=== PATIENT | female | born 1960 | race Caucasian/White ===

== ENCOUNTER 2019-10-20 13:29 | Outpatient (CLI) | payer MEDICAID, SELFPAY ==
[2019-10-20 14:02] LABS: INR 1.93 (0.8-1.2)
== END 2019-10-20 13:30 | disposition home or self-care (01) ==
LOC: ONCMED 13:34
PROVIDERS: Family Provider Nurse Practitioner; PCP Nurse Practitioner Family; Visit Provider Nurse Practitioner
DX: Z51.81 Encounter for therapeutic drug level monitoring (principal); Z79.01 Long term (current) use of anticoagulants; Z86.718 Personal history of other venous thrombosis and embolism
CPT/HCPCS: 85610

== ENCOUNTER 2019-11-07 08:54 | Outpatient (CLI) | payer MEDICAID, SELFPAY ==
[2019-11-07 09:35] LABS: INR 2.62 (0.8-1.2)
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
== END 2019-11-07 08:55 | disposition home or self-care (01) ==
LOC: ONCMED 08:55
PROVIDERS: Family Provider Nurse Practitioner; PCP Nurse Practitioner; Visit Provider Internal Medicine Medical Oncology
DX: Z86.718 Personal history of other venous thrombosis and embolism (principal); E04.2 Nontoxic multinodular goiter; G43.719 Chronic migraine without aura, intractable, without status migrainosus; F41.8 Other specified anxiety disorders; F17.210 Nicotine dependence, cigarettes, uncomplicated; M54.5 Low back pain; M25.552 Pain in left hip; D64.9 Anemia, unspecified; Z96.641 Presence of right artificial hip joint; Z79.01 Long term (current) use of anticoagulants; Z79.891 Long term (current) use of opiate analgesic; Z79.899 Other long term (current) drug therapy
CPT/HCPCS: 85610; 99214

== ENCOUNTER 2019-12-12 11:48 | Outpatient (CLI) | payer MEDICAID, SELFPAY ==
[2019-12-12 12:31] LABS: Basophils # 0.1 10^3/uL (0.0-0.1); Eosinophils # 0.1 10^3/uL (0.0-0.8); Eosinophils % 1.5 %; Hemoglobin 12.5 g/dL (11.5-15.3); Lymphocytes # 3.1 10^3/uL (0.8-4.8); Lymphocytes % 33.6 %; Mean Corpuscular HGB Conc 31.3 g/dL (30.0-36.0); Mean Corpuscular Hemoglobin 30.6 pg (28.0-34.0); Mean Platelet Volume 10.5 fL (7.4-10.4); Monocytes # 0.7 10^3/uL (0.2-0.9); Monocytes % 7.6 %; Neutrophils # 5.2 10^3/uL (1.8-7.7); Nucleated Red Blood Cells % 0 %; Platelet Count 278 10^3/cmm (130-400); Red Blood Count 4.08 10^6/uL (4.1-5.3); Red Cell Distribution Width 15.1 % (12.1-15.1); White Blood Count 9.2 10^3/uL (4.0-10.0)
[2019-12-12 12:40] LABS: INR 1.64 (0.8-1.2)
== END 2019-12-12 11:49 | disposition home or self-care (01) ==
LOC: ONCMED 11:50
PROVIDERS: Family Provider Nurse Practitioner; Visit Provider Internal Medicine Medical Oncology
DX: D64.9 Anemia, unspecified (principal); I82.409 Acute embolism and thrombosis of unspecified deep veins of unspecified lower extremity; Z79.01 Long term (current) use of anticoagulants
CPT/HCPCS: 36415; 85025; 85610

== ENCOUNTER 2020-01-18 09:55 | Outpatient (CLI) | payer MEDICAID, SELFPAY ==
[2020-01-18 17:34] LABS: Basophils # 0.1 10^3/uL (0.0-0.1); Basophils % 1.2 %; Eosinophils # 0.2 10^3/uL (0.0-0.8); Hematocrit 41.8 % (37.0-47.0); Hemoglobin 12.8 g/dL (11.5-15.3); Lymphocytes # 3.2 10^3/uL (0.8-4.8); Lymphocytes % 35.3 %; Mean Corpuscular HGB Conc 30.6 g/dL (30.0-36.0); Mean Corpuscular Hemoglobin 30.8 pg (28.0-34.0); Mean Corpuscular Volume 100.7 fL (81-99); Monocytes # 0.6 10^3/uL (0.2-0.9); Monocytes % 6.8 %; Neutrophils # 4.9 10^3/uL (1.8-7.7); Neutrophils % 54.4 %; Nucleated Red Blood Cells % 0 %; Platelet Count 313 10^3/cmm (130-400); Red Blood Count 4.15 10^6/uL (4.1-5.3); Red Cell Distribution Width 15.8 % (12.1-15.1); White Blood Count 9.1 10^3/uL (4.0-10.0)
[2020-01-18 19:14] LABS: INR 2.23 (0.8-1.2)
== END 2020-01-18 09:56 | disposition home or self-care (01) ==
LOC: ONCMED 16:43
PROVIDERS: Visit Provider Internal Medicine Medical Oncology
DX: D50.8 Other iron deficiency anemias (principal); I82.502 Chronic embolism and thrombosis of unspecified deep veins of left lower extremity
CPT/HCPCS: 85025; 85610

== ENCOUNTER 2020-02-14 10:33 | Outpatient (CLI) | payer MEDICAID, SELFPAY ==
[2020-02-14 11:17] LABS: INR 2.43 (0.8-1.2)
[2020-02-14 11:20] LABS: Basophils # 0.1 10^3/uL (0.0-0.1); Eosinophils # 0.2 10^3/uL (0.0-0.8); Eosinophils % 2.3 %; Hemoglobin 11.7 g/dL (11.5-15.3); Lymphocytes # 2.9 10^3/uL (0.8-4.8); Lymphocytes % 35.5 %; Mean Corpuscular HGB Conc 30.8 g/dL (30.0-36.0); Mean Corpuscular Hemoglobin 31.2 pg (28.0-34.0); Mean Corpuscular Volume 101.3 fL (81-99); Monocytes # 0.6 10^3/uL (0.2-0.9); Monocytes % 7.1 %; Neutrophils # 4.4 10^3/uL (1.8-7.7); Neutrophils % 53.9 %; Nucleated Red Blood Cells % 0 %; Platelet Count 340 10^3/cmm (130-400); Red Blood Count 3.75 10^6/uL (4.1-5.3); Red Cell Distribution Width 15.1 % (12.1-15.1); White Blood Count 8.2 10^3/uL (4.0-10.0)
[2020-02-14 11:29] LABS: Alanine Aminotransferase 12 U/L (0-33); Albumin Level 3.9 g/dL (3.5-5.2); Alkaline Phosphatase 71 IU/L (35-105); Anion Gap 18.4 (5-19); Aspartate Amino Transferase 22 U/L (0-32); Blood Urea Nitrogen 11 mg/dL (8-23); Calcium 9.6 mg/dL (8.5-10.5); Carbon Dioxide 21 mmol/L (22-29); Chloride 99 mmol/L (98-107); Globulin 3.5 g/dL (1.3-4.6); Glomerular Filtration Rate 101.6 mL/min (90-130); Glucose 85 mg/dL (65-115); Iron 79 ug/dL (37-145); Osmolality Calculated 273 mOsm/kg (285-295); Potassium 4.4 mmol/L (3.5-5.1); Sodium 134 mmol/L (136-145); Total Bilirubin 0.2 mg/dL (0.15-1.2); Total Iron Binding Capacity 232 mcg/dl; Total Protein 7.4 g/dL (6.6-8.7); Unsaturated Iron Binding 153 ug/dL (112-347)
== END 2020-02-14 10:34 | disposition home or self-care (01) ==
LOC: ONCMED 10:36
PROVIDERS: PCP Nurse Practitioner Family; Visit Provider Internal Medicine Medical Oncology
DX: D50.9 Iron deficiency anemia, unspecified (principal); I82.502 Chronic embolism and thrombosis of unspecified deep veins of left lower extremity; E04.2 Nontoxic multinodular goiter; G43.719 Chronic migraine without aura, intractable, without status migrainosus; K86.1 Other chronic pancreatitis; M15.0 Primary generalized (osteo)arthritis; Z79.01 Long term (current) use of anticoagulants
CPT/HCPCS: 80053; 83540; 83550; 85025; 85610

== ENCOUNTER 2020-03-08 11:47 | Outpatient (CLI) | payer MEDICAID, SELFPAY ==
[2020-03-08 12:16] LABS: Basophils # 0.1 10^3/uL (0.0-0.1); Basophils % 0.8 %; Eosinophils # 0.2 10^3/uL (0.0-0.8); Eosinophils % 1.8 %; Hematocrit 37.6 % (37.0-47.0); Lymphocytes # 3.7 10^3/uL (0.8-4.8); Mean Corpuscular HGB Conc 31.9 g/dL (30.0-36.0); Mean Corpuscular Hemoglobin 30.8 pg (28.0-34.0); Mean Corpuscular Volume 96.4 fL (81-99); Mean Platelet Volume 9.9 fL (7.4-10.4); Monocytes # 0.5 10^3/uL (0.2-0.9); Monocytes % 5.8 %; Neutrophils # 4.4 10^3/uL (1.8-7.7); Neutrophils % 49.4 %; Nucleated Red Blood Cells % 0 %; Platelet Count 252 10^3/cmm (130-400); Red Cell Distribution Width 15.3 % (12.1-15.1); White Blood Count 8.8 10^3/uL (4.0-10.0)
[2020-03-08 12:37] LABS: Alanine Aminotransferase 17 U/L (0-33); Albumin Level 4.2 g/dL (3.5-5.2); Alkaline Phosphatase 78 IU/L (35-105); Anion Gap 16.2 (5-19); Aspartate Amino Transferase 26 U/L (0-32); Blood Urea Nitrogen 9 mg/dL (8-23); Carbon Dioxide 24 mmol/L (22-29); Chloride 95 mmol/L (98-107); Glomerular Filtration Rate 101.6 mL/min (90-130); Glucose 120 mg/dL (65-115); Iron 61 ug/dL (37-145); Osmolality Calculated 269 mOsm/kg (285-295); Percent Saturation 25.7 % (20-50); Potassium 4.2 mmol/L (3.5-5.1); Sodium 131 mmol/L (136-145); Total Bilirubin 0.2 mg/dL (0.15-1.2); Total Iron Binding Capacity 237 mcg/dl; Total Protein 7.2 g/dL (6.6-8.7); Unsaturated Iron Binding 176 ug/dL (112-347)
[2020-03-08 14:09] LABS: INR 2.88 (0.8-1.2)
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
== END 2020-03-08 11:48 | disposition home or self-care (01) ==
LOC: ONCMED 11:49
PROVIDERS: PCP Nurse Practitioner Family; Visit Provider Internal Medicine Medical Oncology
DX: Z86.718 Personal history of other venous thrombosis and embolism (principal); I87.8 Other specified disorders of veins; M79.89 Other specified soft tissue disorders; M54.5 Low back pain; M25.552 Pain in left hip; M25.551 Pain in right hip; R53.83 Other fatigue; Z79.01 Long term (current) use of anticoagulants; Z79.891 Long term (current) use of opiate analgesic
CPT/HCPCS: 36415; 80053; 83540; 83550; 85025; 85610; 99214

== ENCOUNTER 2020-03-24 13:37 | Emergency (ER) | payer MEDICAID, SELFPAY ==
[2020-03-24 13:38] VITALS: BMI 31.2
[2020-03-24 13:45] VITALS: BP 102/68; PULSE 78; RESP 18; TEMP 36.7; O2SAT 95
--- NOTE | 2020-03-24 13:49 | XRR_ITS ---
PROCEDURE INFORMATION: Exam: XR Chest, 1 View Exam date and time: 03/24/2020 2:05 PM Age: 59 years old Clinical indication: Shortness of breath; Additional info: Chest pain, SOB TECHNIQUE: Imaging protocol: XR of the chest Views: 1 view. COMPARISON: CR Chest 2 views* [id number] 03/07/2016 3:10 PM FINDINGS: Lungs: Unremarkable. No consolidation. Pleural space: Unremarkable. No pleural effusion. No pneumothorax. Heart/Mediastinum: Unremarkable. No cardiomegaly. Bones/joints: Unremarkable. There is been no interval changes comparing to prior examination. XR/XR chest 1V portable [id number] IMPRESSION: No acute findings.
--- NOTE | 2020-03-24 13:49 | ECG_ITS ---
[facility] Test Date: 2020-03-24 Pat Name: Jennifer Soto Department: Room: Gender: Female Medical Aide: : 1960 Requested By: Starla Renteria Order Number: [id number] Lori MD: Fernando Garrison M.D. Measurements Intervals [place] Rate: 74 P: 42 MO: 158 QRS: 4 QRSD: 80 T: 36 QT: 379 QTc: 421 Interpretive Statements SINUS RHYTHM Compared to ECG 03/07/2016 14:45:13 No significant changes Electronically Signed On 03-25-2020 8:03:24 CDT by Fernando Garrison M.D. [id number]
--- NOTE | 2020-03-24 13:50 | ED_ITS ---
HPI - Chest Pain General: Chief Complaint: Chest Pain Stated Complaint: CHEST PAIN Time Seen by Provider: 03/24/20 13:39 History of Present Illness: HPI narrative: This is a 59-year-old female who presents today with chest pain. She reports that about an hour ago she was getting ready to go out and began having severe substernal chest pain that radiated to her neck, jaw, shoulders. She said the pain lasted several minutes and she took 1 of her sisters nitroglycerin tablets. The pain resolved and she now has a headache. During transport she developed some pressure again in her chest and still has just a trace of pressure now. She denies a personal history of cardiac disease. She is a smoker. Her family history is strong for early onset heart disease - in her mother who of an DC and her early 60s as well as several siblings who have stents. She also has had a cough and shortness of breath. She said about a week ago she started having symptoms of bronchitis. She called her doctor and was seen in her vehicle and they did a COVID test. That was on Thursday. She has received the results which were negative. She also was given a Z-Gerardo for presumed bronchitis. She feels like she is improving from that but still has some coughing and shortness of breath. In terms of the chest pain she had today, she says she has had some episodes like this over the past several months but never this severe. She has had a cardiac evaluation but it was 15 or 20 years ago. She has been under quite a bit of stress lately with several deaths in the family and the responsibility of taking care of an elderly aunt. 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 She sees Dr. Humphrey for that. She has never had a PE as far she knows. complaint: chest pain and chest heaviness Onset (ago): hour(s) (1) Timing of current episode: episodic Prior episodes: Yes Onset: during exertion (During light activity) Pain location: substernal Pain radiation: neck, jaw/teeth, left shoulder and right shoulder Relieving factors: nitroglycerin Associated symptoms: Reports dyspnea; Deny abdominal pain, fever(s), nausea or vomiting Review of Systems General: Reports: 10 or more systems reviewed and unremarkable except in HPI and below Const: Denies: fever(s), chills, fatigue or malaise Eyes: Denies: change in vision ENMT: Denies: odynophagia Card: Reports: chest pain; Denies: swelling of feet/ankles Resp: Reports: dyspnea, non-productive cough and wheezing; Denies: productive cough GI: Denies: abdominal pain, nausea or vomiting : Denies: flank pain or difficulty voiding Musc: Denies: neck pain or back pain Skin/Breast: Denies: rash Neuro: Denies: headache(s), numbness in extremities or weakness in extremities Horace/Lymph: Denies: easy bruising or easy bleeding Physical Exam Const: COMMON NORMALS: no acute distress, patient oriented x3, no limitations and alert GENERAL APPEARANCE: cooperative and comfortable HENMT: HEAD & SCALP: normal to inspection FACE & SINUS: normal facial exam Eye: GENERAL EYE: appearance normal, both eyes and all related structures Neck/C-Spine: COMMON NORMALS: supple, no meningeal signs and no JVD Chest: COMMONS NORMALS: normal inspection of the chest Resp: COMMON NORMALS: normal respiratory effort and No use of accessory muscles AUSCULTATION: wheezes (Moderate, throughout. Unable to take in a breath without coughing.) Cardio: COMMON NORMALS: no JVD, regular rate, regular rhythm and No murmurs present (Cardio) RATE: regular rate RHYTHM: regular rhythm GI: COMMON NORMALS: Normal to inspection, nondistended, normoactive bowel sounds present, Soft to palpation and non-tender INSPECTION: Yes normal to inspection AUSCULTATION: Yes normoactive bowel sounds PALPATION: Yes Soft to palpation Back/Pelvis: COMMON NORMALS: thoracic and lumbar spine normal to inspection Extremity: COMMON NORMALS: normal to inspection Neuro: COMMON NORMALS: patient oriented x3, moves all extremities, no focal motor deficits and no sensory deficits noted SENSORIUM/ORIENTATION: Yes alert MENINGEAL SIGNS: Yes no meningeal signs Psych: COMMON NORMALS: mental status grossly normal, cooperative and normal affect Skin: COMMON NORMALS: no rashes or lesions noted and turgor normal GENERAL SKIN EXAM: no rashes or lesions noted and turgor normal Course ED course: Patient was pain-free in the ED. Her blood pressure was initially low but came up with fluids. She had 2- EKGs. Her troponin was 6 both times. I have discussed at length with her that she needs to have a cardiac evaluation based on her family history and risk factors. She understands it all we have done today is rule out an DC at this time but have not ruled out cardiac disease. She will follow-up with Dr. Ruth or whoever is available at the cardiac clinic. She has seen Dr. Ruth in the remote past. Vital Signs: Vital signs: Vital Signs Temperature 98.0 F 03/24/20 13:45 Pulse Rate 80 03/24/20 15:00 Respiratory Rate 16 03/24/20 15:00 Blood Pressure 120/84 03/24/20 15:00 Pulse Oximetry 97 03/24/20 15:00 MDM - Chest Pain MDM Narrative: Medical decision making narrative: Chest pain. Resolved with nitro. Only lasted for a few minutes. EKG is normal. She does have family history of heart problems and a personal history of DVTs. This clinically does not seem like a PE. Lab Data: Labs: Lab Results 03/24/20 03/24/20 03/24/20 Range/Units 14:09 14:09 14:09 WBC 8.6 (4.0-10.0) 10^3/ uL RBC 3.83 L (4.1-5.3) 10^6/u L Hgb 11.7 (11.5-15.3) g/dL Hct 37.4 (37.0-47.0) % MCV 97.7 (81-99) fL MCH 30.5 (28.0-34.0) pg MCHC 31.3 (30.0-36.0) g/dL RDW 14.8 (12.1-15.1) % Plt Count 389 (130-400) 10^3/c mm MPV 9.3 (7.4-10.4) fL Neut % (Auto) 51.5 % Lymph % (Auto) 37.6 % [place] % (Auto) 7.2 % Eos % (Auto) 2.4 % Baso % (Auto) 0.8 % Neut # (Auto) 4.44 (1.8-7.7) 10^3/u L Lymph # (Auto) 3.2 (0.8-4.8) 10^3/u L [place] # (Auto) 0.6 (0.2-0.9) 10^3/u L Eos # (Auto) 0.2 (0.0-0.8) 10^3/u L Baso # (Auto) 0.1 (0.0-0.1) 10^3/u L Nucleated RBC % (a uto) 0 % Nucleated RBCs # 0.0 /100WBC APTT 55.9 H (23.9-36.7) SECO NDS Sodium 131 L (136-145) mmol/L Potassium 4.5 (3.5-5.1) mmol/L Chloride 98 (98-107) mmol/L Carbon Dioxide 23 (22-29) mmol/L Anion Gap 14.5 (5-19) BUN 12 (8-23) mg/dL Creatinine 0.7 (0.5-0.9) mg/dL GFR Calculation 85.1 L (90-130) mL/min Glucose 96 (65-115) mg/dL Calculated Osmolal ity 268 L (285-295) mOsm/k g Calcium 8.9 (8.5-10.5) mg/dL Total Bilirubin 0.2 (0.15-1.2) mg/dL AST 14 (0-32) U/L ALT 13 (0-33) U/L Alkaline Phosphata se 75 (35-105) IU/L Troponin T Baselin e (0-10) ng/L Troponin T [address] [place] (0-10) ng/L Delta Troponin T (0-10) ABS# Total Protein 6.8 (6.6-8.7) g/dL Albumin 3.8 (3.5-5.2) g/dL Globulin 3.0 (1.3-4.6) g/dL Lipase 25 (13-60) U/L 03/24/20 03/24/20 Range/Units 14:09 16:12 WBC (4.0-10.0) 10^3/ uL RBC (4.1-5.3) 10^6/u L Hgb (11.5-15.3) g/dL Hct (37.0-47.0) % MCV (81-99) fL MCH (28.0-34.0) pg MCHC (30.0-36.0) g/dL RDW (12.1-15.1) % Plt Count (130-400) 10^3/c mm MPV (7.4-10.4) fL Neut % (Auto) % Lymph % (Auto) % [place] % (Auto) % Eos % (Auto) % Baso % (Auto) % Neut # (Auto) (1.8-7.7) 10^3/u L Lymph # (Auto) (0.8-4.8) 10^3/u L [place] # (Auto) (0.2-0.9) 10^3/u L Eos # (Auto) (0.0-0.8) 10^3/u L Baso # (Auto) (0.0-0.1) 10^3/u L Nucleated RBC % (a uto) % Nucleated RBCs # /100WBC APTT (23.9-36.7) SECO NDS Sodium (136-145) mmol/L Potassium (3.5-5.1) mmol/L Chloride (98-107) mmol/L Carbon Dioxide (22-29) mmol/L Anion Gap (5-19) BUN (8-23) mg/dL Creatinine (0.5-0.9) mg/dL GFR Calculation (90-130) mL/min Glucose (65-115) mg/dL Calculated Osmolal ity (285-295) mOsm/k g Calcium (8.5-10.5) mg/dL Total Bilirubin (0.15-1.2) mg/dL AST (0-32) U/L ALT (0-33) U/L Alkaline Phosphata se (35-105) IU/L Troponin T Baselin e 6 (0-10) ng/L Troponin T [address] [place] 6.00 (0-10) ng/L Delta Troponin T 0 (0-10) ABS# Total Protein (6.6-8.7) g/dL Albumin (3.5-5.2) g/dL Globulin (1.3-4.6) g/dL Lipase (13-60) U/L EKG Data^: EKG 1: EKG interpretation date: 03/24/20 EKG interpretation time: 13:50 Interpretation: Normal sinus rhythm at a rate of 74. Normal intervals. Normal axis. No ST changes. Discharge Plan Discharge Patient Disposition: Home, Self-Care Clinical Impression: Chest pain Qualifiers: Chest pain type: unspecified Qualified Code(s): R07.9 - Chest pain, unspecified Condition: Stable Prescriptions: No Action warfarin 10 mg tablet 10 mg PO DAILY RF: 0 clonazepam 1 mg tablet 1 mg PO DAILY RF: 0 hydrocodone-acetaminophen 10-325 mg tablet 1 tab PO DAILY RF: 0 ibuprofen 600 mg tablet 600 mg PO DAILY RF: 0 ProAir HFA 90 mcg/actuation HFA aerosol inhaler See Rx Instructions .ROUTE .COMPLEX RF: 0 fluoxetine 20 mg capsule 60 mg PO DAILY RF: 0 fluticasone propionate 50 mcg/actuation spray,suspension 50 mcg INTRANASAL DAILY RF: 0 Vitamin Plus Low Iron 27 mg iron- 1 mg tablet 1 tab PO DAILY RF: 0 Discharge Orders: Discharge Order (Routine); Ordered 03/24/20 Ordered By: Starla Hill Referrals: Gaye Ruth MD [Physician] - 4-7 days Discharge Diet: Usual diet Discharge Activity: Resume usual activity Patient Instructions: Chest Pain (ED) Activity Restrictions/Additional Instructions: Limit physical activity until you are seen by cardiology. Return to the emergency department if recurrent episodes of chest pain or any other new or concerning symptoms. 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
[2020-03-24] MEDS: albuterol 8 gm MDI 2 PUFF INHALATION (14:12)
[2020-03-24 14:16] VITALS: PULSE 78; RESP 16; O2SAT 94
[2020-03-24 14:19] VITALS: PULSE 73
[2020-03-24 14:25] LABS: Basophils # 0.1 10^3/uL (0.0-0.1); Basophils % 0.8 %; Eosinophils # 0.2 10^3/uL (0.0-0.8); Eosinophils % 2.4 %; Hematocrit 37.4 % (37.0-47.0); Hemoglobin 11.7 g/dL (11.5-15.3); Lymphocytes # 3.2 10^3/uL (0.8-4.8); Lymphocytes % 37.6 %; Mean Corpuscular HGB Conc 31.3 g/dL (30.0-36.0); Mean Corpuscular Hemoglobin 30.5 pg (28.0-34.0); Mean Corpuscular Volume 97.7 fL (81-99); Mean Platelet Volume 9.3 fL (7.4-10.4); Monocytes # 0.6 10^3/uL (0.2-0.9); Monocytes % 7.2 %; Neutrophils # 4.44 10^3/uL (1.8-7.7); Neutrophils % 51.5 %; Nucleated Red Blood Cells % 0 %; Platelet Count 389 10^3/cmm (130-400); Red Blood Count 3.83 10^6/uL (4.1-5.3); Red Cell Distribution Width 14.8 % (12.1-15.1); White Blood Count 8.6 10^3/uL (4.0-10.0)
[2020-03-24 14:33] LABS: Partial Thromboplastin Time 55.9 SECONDS (23.9-36.7)
[2020-03-24 14:37] VITALS: BP 104/61; PULSE 72; RESP 16; O2SAT 94
[2020-03-24 14:38] LABS: Troponin(5th) Baseline 6 ng/L (0-10)
[2020-03-24 14:44] LABS: Alanine Aminotransferase 13 U/L (0-33); Albumin Level 3.8 g/dL (3.5-5.2); Alkaline Phosphatase 75 IU/L (35-105); Anion Gap 14.5 (5-19); Aspartate Amino Transferase 14 U/L (0-32); Blood Urea Nitrogen 12 mg/dL (8-23); Calcium 8.9 mg/dL (8.5-10.5); Carbon Dioxide 23 mmol/L (22-29); Chloride 98 mmol/L (98-107); Glomerular Filtration Rate 85.1 mL/min (90-130); Glucose 96 mg/dL (65-115); Lipase 25 U/L (13-60); Osmolality Calculated 268 mOsm/kg (285-295); Potassium 4.5 mmol/L (3.5-5.1); Sodium 131 mmol/L (136-145); Total Bilirubin 0.2 mg/dL (0.15-1.2); Total Protein 6.8 g/dL (6.6-8.7)
[2020-03-24 15:00] VITALS: BP 120/84; PULSE 80; RESP 16; O2SAT 97
--- NOTE | 2020-03-24 15:49 | ECG_ITS ---
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 Measurements Intervals [place] Rate: 75 P: 58 WI: 186 QRS: 20 QRSD: 85 T: 53 QT: 390 QTc: 438 Interpretive Statements SINUS RHYTHM Compared to ECG 03/24/2020 13:55:18 No significant changes Electronically Signed On 03-25-2020 8:06:08 CDT by Fernando Garrison M.D. [id number]
[2020-03-24 16:55] LABS: Troponin 5 2HR Delta 0 ABS# (0-10)
[2020-03-24 18:04] VITALS: BP 119/85; PULSE 86; RESP 15; O2SAT 93
--- NOTE | 2020-03-26 12:37 | DCPLANNER ---
brand marketing manager had message to schedule a follow up appointment for patient with [facility]. brand marketing manager called [facility], spoke with Eloisa, gave clinic patients information. brand marketing manager was told that patients information would be printed and reviewed. Clinic will call patient with appointment information.
--- NOTE | 2020-03-27 08:22 | DCPLANNER ---
Patient has a follow up appointment scheduled for , April 05, 2020 at 1:[address] Lainez at [facility]. Clinic will call patient with appointment information.
--- NOTE | 2020-04-05 12:52 | DCPLANNER ---
Patients appointment scheduled for 04.05.20 was rescheduled for Friday, April 17, 2020 at 1:00.
--- NOTE | 2020-04-26 14:09 | DCPLANNER ---
Patient did attend appointment scheduled for 04.17.20 with [facility] - patient did attend appointment.
== END 2020-03-24 17:55 | disposition home or self-care (01) ==
PROVIDERS: Emergency Provider Emergency Medicine
DX: R07.9 Chest pain, unspecified (principal); Z79.01 Long term (current) use of anticoagulants
CPT/HCPCS: 12345; 36415; 71045; 80053; 83690; 84484; 85025; 85730; 93005; 94640; 99282; 99284; J3535

== ENCOUNTER 2020-04-17 11:38 | Outpatient (CLI) | payer MEDICAID, SELFPAY ==
[2020-04-17 12:18] LABS: INR 2.98 (0.8-1.2)
== END 2020-04-17 11:39 | disposition home or self-care (01) ==
LOC: ONCMED 11:41
PROVIDERS: PCP Nurse Practitioner Family; Visit Provider Internal Medicine Medical Oncology
DX: Z79.01 Long term (current) use of anticoagulants (principal); D50.8 Other iron deficiency anemias; I82.502 Chronic embolism and thrombosis of unspecified deep veins of left lower extremity
CPT/HCPCS: 36415; 85610

== ENCOUNTER 2020-04-27 07:10 | Outpatient (CLI) | payer MEDICAID, SELFPAY ==
[2020-04-27 07:37] VITALS: BMI 30.7
--- NOTE | 2020-04-27 08:35 | NMCV_ITS ---
NM stephanie perf SPECT r/s* [id number] Jennifer Soto Age: 59 Gender: F : 1960 Exam Date: 04/27/2020 08:26 Ordering Phys: Erica Lainez MD ([email or web address]) Technologist: ESTER Chairez Exam Location: [facility] Indications: CHEST PAIN STRESS TEST Please see separate stress test report in [facility] for full findings IMAGE PROTOCOL Rest/Stress 1 Lexiscan Day Radiopharmaceutical Dose (mCi) Administration Site Administered by Rest: Tc-99m 10.7 IV ESTER Chairez Sestamibi Stress:Tc-99m 32.3 IV ESTER Chairez Sestamibi Rest: 27-Apr-2020 60 Discovery 630 Stress: 27-Apr-2020 30 Discovery 630 0.4mg Lexiscan. Images obtained in supine and prone position. SPECT RESULTS Technical Quality: Excellent Raw Data Analysis: Normal Image Corrections: No attenuation or motion correction applied Summed Stress Score: 0 Summed Rest Score: 0 Summed Difference Score: 0 PERFUSION FINDINGS Small sized perfusion abnormality of mild severity of apical septal wall on rest images with improved uptake on stress images. This is suggestive of attenuation artifact. FUNCTIONAL RESULTS (calculated via Gated SPECT) Stress Image LV EF (%): 78 Stress EDV (mL):83 TID: 1.24 Stress ESV (mL):18 FUNCTIONAL FINDINGS: The left ventricle is normal in size. Transient Ischemia Dilatation of 1.2. There is normal left ventricular systolic function. The left ventricular ejection fraction is normal with a value of 78%. There is normal left ventricular wall thickening. There is normal end diastolic and end systolic volumes. IMPRESSIONS 1. Small sized perfusion abnormality of mild severity of apical septal wall with improved uptake on stress images. This is suggestive of attenuation artifact. 2. Overall left ventricular systolic function is normal without regional wall motion abnormalities. 3. The left ventricular ejection fraction is normal with a value of 78%. 4. Transient ischemic dilation index slightly increased at 1.24. This may represent hypertensive response/subendocardial ischemia. Clinical correlation is adviced. 5. No coronary ischemia based on this study. Erica Lainez MD (Electronically Signed) Final Date: 30 April 2020 11:53 S
--- NOTE | 2020-04-27 08:35 | ECG_ITS ---
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 Interpretive Statements NAME OF STUDY: LEXISCAN SESTAMIBI STRESS TEST INDICATION: Chest Pain PROCEDURE: At the baseline, the EKG revealed sinus rhythm, normal axis with normal ST and T's. The baseline blood pressure was 133/77 mm Hg with a heart rate of 71 beats/min. Lexiscan was infused over a period of 20 seconds. A total of 0.4 milligrams of Lexiscan was infused. The stress phase was continued for a total of 5 minutes. Heart rate at the end of the stress phase was 83 bpm with a blood pressure 131/73 mm Hg. The EKG at the peak infusion revealed sinus rhythm with no significant ST-T wave changes. Sestamibi was injected 20 seconds after the Lexiscan infusion. Blood pressure at the end of the recovery phase was 126/75 with a heart rate of 81 beats per minute. CONCLUSION: 1. Nonspecific ST-T changes with the LexiScan infusion. 2. No LexiScan induced chest pain or cardiac arrhythmia. 3. Normal blood pressure and heart rate response. 4. Sestamibi/sestamibi perfusion scan pending; see separate report. Electronically Signed On 04-30-2020 18:24:30 CDT by Erica Lainez M.D. [id number]
[2020-04-27 09:20] VITALS: BP 126/74; PULSE 91
[2020-04-27] MEDS: regadenoson 0.4 Mg/5 ml Syringe IVP (09:20)
== END 2020-04-27 07:11 | disposition home or self-care (01) ==
LOC: CDL 07:10
PROVIDERS: PCP Nurse Practitioner Family; Visit Provider Internal Medicine Cardiovascular Disease
DX: R07.9 Chest pain, unspecified (principal)
CPT/HCPCS: 78452; 93017; A9500; J2785

== ENCOUNTER 2020-05-17 11:38 | Outpatient (CLI) | payer MEDICAID, SELFPAY ==
[2020-05-17 12:12] LABS: INR 2.55 (0.8-1.2)
== END 2020-05-17 11:39 | disposition home or self-care (01) ==
LOC: ONCMED 11:39
PROVIDERS: PCP Nurse Practitioner Family; Visit Provider Internal Medicine Medical Oncology
DX: I82.502 Chronic embolism and thrombosis of unspecified deep veins of left lower extremity (principal); D50.9 Iron deficiency anemia, unspecified; E04.2 Nontoxic multinodular goiter; G43.719 Chronic migraine without aura, intractable, without status migrainosus; K86.1 Other chronic pancreatitis; M15.0 Primary generalized (osteo)arthritis
CPT/HCPCS: 85610

== ENCOUNTER 2020-06-07 00:22 | Emergency (ER) | payer MEDICAID, SELFPAY ==
[2020-06-07 00:39] VITALS: BP 133/84; PULSE 78; RESP 18; TEMP 36.7; O2SAT 100; BMI 30.7
--- NOTE | 2020-06-07 00:49 | W.ED.EYEPROB ---
HPI - Eye Problem General: Chief complaint: Eye Problems Stated complaint: super glued r eye Time Seen by Provider: 06/07/20 00:44 History of Present Illness: HPI Narrative: Patient is a 59-year-old female who comes to the ED after getting superglue in her right eye. Patient was recently seen at [facility] and she was not pleased with the care she received there so she left and came to [facility] to be evaluated. Patient says says she had superglue and her allergy eyedrops on her dresser next to each other. She was outside working she came in to put eyedrops in her eye and she grabbed the superglue and dropped some superglue in right eye. She says she immediately then rinsed out her right eye that she could. She says she now has 10 out of 10 eye pain and her eyelids are glued shut in the right eye. She did not get any superglue in the left eye. Associated symptoms: Denies fever(s), headache(s), nausea, neck pain or vomiting Review of Systems Const: Denies: fever(s), chills or fatigue Eyes: Reports: eye discomfort and other (Patient got superglue on eye and eyelids are glued shut.); Denies: change in vision ENMT: Denies: throat pain, odynophagia, nasal discharge or nasal congestion Card: Denies: chest pain, palpitations, edema, swelling of feet/ankles, dyspnea on exertion or orthopnea Resp: Denies: dyspnea, productive cough or non-productive cough GI: Denies: abdominal pain, nausea, vomiting, diarrhea, constipation or hematochezia : Denies: flank pain, dysuria or hematuria Musc: Denies: neck pain, back pain or extremity swelling Skin/Breast: Denies: rash or new lesions Neuro: Denies: headache(s), numbness in extremities or weakness in extremities PFS ED PFSH: Medical History DVT (deep venous thrombosis) Surgical History History of appendectomy History of hip surgery History of hysterectomy Family History Other CAD (coronary artery disease) Myocardial infarction Denies family history of Diabetes Social History Smoking and tobacco status: current every day smoker cigarettes Packs smoked per day: 0.5 Alcohol intake: never Physical Exam Const: COMMON NORMALS: patient oriented x3 and alert GENERAL APPEARANCE: cooperative and anxious; not comfortable (Patient was uncomfortable and in some pain in her right eye.) HENMT: COMMON NORMALS: normocephalic HEAD & SCALP: normocephalic MOUTH: Normal oral and palatal mucosa present THROAT: posterior oropharynx normal and uvula midline Eye: OTHER: Right eye was glued shot. She did have some watering coming out from the middle part of the eye but no purulent discharge. I wiped with warm rag and used's scissors to trim eyelashes. Eyelashes had dried glue present. I was unable to completely open right eye to perform a slit lamp exam and see conjunctive to or cornea. Neck/C-Spine: COMMON NORMALS: supple GENERAL: Yes normal visual inspection Resp: COMMON NORMALS: normal respiratory effort, No retractions, No use of accessory muscles and clear to auscultation bilaterally AUSCULTATION: clear to auscultation bilaterally Cardio: COMMON NORMALS: regular rate, regular rhythm, S1 normal heart sound present, S2 normal heart sound present, No gallops present (Cardio), No clicks present (Cardio), No murmurs present (Cardio) and Peripheral pulses 2+ throughout RATE: regular rate RHYTHM: regular rhythm HEART SOUNDS: S1 normal heart sound present and S2 normal heart sound present PERIPHERAL PULSES: Peripheral pulses 2+ throughout GI: COMMON NORMALS: Normal to inspection, nondistended, normoactive bowel sounds present, Soft to palpation, non-tender and no masses PALPATION: Yes Soft to palpation : COMMON NORMALS: Yes no CVA tenderness BLADDER/KIDNEY EXAM: Yes no CVA tenderness Back/Pelvis: COMMON NORMALS: no CVA tenderness Extremity: COMMON NORMALS: normal to inspection Neuro: COMMON NORMALS: patient oriented x3 and moves all extremities SENSORIUM/ORIENTATION: Yes alert Skin: GENERAL SKIN EXAM: dry skin Course Vital Signs: Vital signs: Vital Signs Temperature 98.1 F 06/07/20 00:39 Pulse Rate 74 06/07/20 02:44 Respiratory Rate 16 06/07/20 02:44 Blood Pressure 128/82 06/07/20 02:44 Pulse Oximetry 98 06/07/20 02:44 MDM - Eye Problem MDM Narrative: Medical decision making narrative: Patient is a 59-year-old female comes to the ED after getting superglue in the right eye. Patient says she mistakenly put superglue in right eye because she thought it was her eyedrops. She immediately rinsed eye out under water at home. Right eye is now glued shut. She did have some watering coming out from the middle part of the right eye but no purulent discharge. I wiped with warm rag and used's scissors to trim eyelashes. Eyelashes had dried glue present. I was unable to completely open right eye to perform a slit lamp exam and see conjunctive to or cornea. I was able to get eyelids open more than they were upon initial exam. Erythromycin eye ointment was applied on right eye while here in the ED. Patient was given the contact information for Dr. Pro [facility] and told to give them a call tomorrow morning to set up an appointment to be evaluated. When researching superglue and I found multiple studies that show that there has not been any known instances of chronic or serious injury due to exposure. After approximately 3 to 4 days the adhesive will break up and patient will be able to open eye. Sent patient home with a prescription for erythromycin to apply and told her to continue using a warm rag throughout the day to try to remove glue. I told patient that if she is unable to get a hold of Dr. Morteza harrison or any other eye doctor in the next 48 hours she can return to the ED for reevaluation. Patient understood and agreed with plan. Discharge Plan Discharge Patient Disposition: Home Clinical Impression: Chemical exposure of eye Condition: Stable Prescriptions: New erythromycin 5 mg/gram (0.5 %) ointment 1 applic ophthalmic (eye) BID Qty: 3.5 RF: 0 No Action nitroglycerin 0.4 mg tablet, sublingual 0.4 mg SUBLINGUAL Q5M PRN (Reason: chest pain) Qty: 25 RF: 2 warfarin 10 mg tablet 10 mg PO DAILY RF: 0 clonazepam 1 mg tablet 1 mg PO DAILY RF: 0 hydrocodone-acetaminophen 10-325 mg tablet 1 tab PO DAILY RF: 0 ibuprofen 600 mg tablet 600 mg PO DAILY RF: 0 ProAir HFA 90 mcg/actuation HFA aerosol inhaler See Rx Instructions .ROUTE .COMPLEX RF: 0 fluoxetine 20 mg capsule 60 mg PO DAILY RF: 0 fluticasone propionate 50 mcg/actuation spray,suspension 50 mcg INTRANASAL DAILY RF: 0 Vitamin Plus Low Iron 27 mg iron- 1 mg tablet 1 tab PO DAILY RF: 0 Discharge Orders: Discharge Order (Routine); Ordered 06/07/20 Ordered By: Haile Mei Referrals: Vera Dominique FNP [Primary Care Provider] - Discharge Diet: Regular Discharge Activity: Increase activity as tolerated Patient Instructions: Eye Foreign Body (ED) Activity Restrictions/Additional Instructions: Follow-up with medical provider as directed. Contact Dr. Pro office tomorrow morning at phone number [phone]. Dr. Pro office address is [address] [place] [address] take medications as prescribed. Return to the ER or your medical provider if condition worsens. Please read and understand discharge instructions. If any questions, please ask. 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
[2020-06-07 02:44] VITALS: BP 128/82; PULSE 74; RESP 16; O2SAT 98
== END 2020-06-07 02:49 | disposition home or self-care (01) ==
PROVIDERS: Emergency Provider Physician Assistant; PCP Nurse Practitioner Family
DX: Z77.098 Contact with and (suspected) exposure to other hazardous, chiefly nonmedicinal, chemicals (principal); F17.210 Nicotine dependence, cigarettes, uncomplicated
CPT/HCPCS: 12345; 99283

== ENCOUNTER 2020-06-11 11:06 | Outpatient (CLI) | payer MEDICAID, SELFPAY ==
[2020-06-11 11:28] LABS: Basophils # 0.1 10^3/uL (0.0-0.1); Basophils % 1.3 %; Eosinophils # 0.2 10^3/uL (0.0-0.8); Eosinophils % 2.1 %; Hematocrit 36.8 % (37.0-47.0); Hemoglobin 11.4 g/dL (11.5-15.3); Lymphocytes # 3.6 10^3/uL (0.8-4.8); Lymphocytes % 44.9 %; Mean Corpuscular Hemoglobin 30.4 pg (28.0-34.0); Mean Corpuscular Volume 98.1 fL (81-99); Mean Platelet Volume 9.8 fL (7.4-10.4); Monocytes # 0.4 10^3/uL (0.2-0.9); Monocytes % 5.4 %; Neutrophils # 3.68 10^3/uL (1.8-7.7); Nucleated Red Blood Cells % 0 %; Platelet Count 286 10^3/cmm (130-400); Red Blood Count 3.75 10^6/uL (4.1-5.3); Red Cell Distribution Width 15.9 % (12.1-15.1)
[2020-06-11 11:41] LABS: INR 2.78 (0.8-1.2)
[2020-06-11 11:47] LABS: Alanine Aminotransferase 13 U/L (0-33); Albumin Level 4.1 g/dL (3.5-5.2); Alkaline Phosphatase 74 IU/L (35-105); Anion Gap 13.4 (5-19); Aspartate Amino Transferase 18 U/L (0-32); Blood Urea Nitrogen 9 mg/dL (8-23); Calcium 8.9 mg/dL (8.5-10.5); Carbon Dioxide 23 mmol/L (22-29); Chloride 104 mmol/L (98-107); Globulin 2.6 g/dL (1.3-4.6); Glomerular Filtration Rate 101.6 mL/min (90-130); Glucose 117 mg/dL (65-115); Iron 59 ug/dL (37-145); Osmolality Calculated 282 mOsm/kg (285-295); Percent Saturation 28.7 % (20-50); Potassium 4.4 mmol/L (3.5-5.1); Sodium 136 mmol/L (136-145); Total Bilirubin 0.2 mg/dL (0.15-1.2); Total Iron Binding Capacity 205 mcg/dl; Total Protein 6.7 g/dL (6.6-8.7); Unsaturated Iron Binding 146 ug/dL (112-347)
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
== END 2020-06-11 11:07 | disposition home or self-care (01) ==
LOC: ONCMED 11:13
PROVIDERS: PCP Nurse Practitioner Family; Visit Provider Internal Medicine Medical Oncology
DX: D50.9 Iron deficiency anemia, unspecified (principal); I82.502 Chronic embolism and thrombosis of unspecified deep veins of left lower extremity; G43.719 Chronic migraine without aura, intractable, without status migrainosus; K86.1 Other chronic pancreatitis; M15.0 Primary generalized (osteo)arthritis; Z79.01 Long term (current) use of anticoagulants
CPT/HCPCS: 36415; 80053; 83540; 83550; 85025; 85610; 99214

== ENCOUNTER 2020-07-10 11:56 | Emergency (ER) | payer MEDICAID, SELFPAY ==
[2020-07-10 11:50] VITALS: BP 129/76; PULSE 79; RESP 18; TEMP 36.6; O2SAT 97; BMI 30.7
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
--- NOTE | 2020-07-10 12:01 | W.ED.EXTPRO ---
HPI - Extremity Problem General: Chief complaint: Extremity Problem,Nontraumatic Stated complaint: poss. DVT LUE Time Seen by Provider: 07/10/20 11:57 Source: patient and EMS Mode of arrival: EMS Limitations: no limitations History of Present Illness: HPI Narrative: 59-year-old female who came in by EMS concerned she had a DVT in her left upper extremity. She states she has had multiple DVTs in the past and is on Coumadin daily. States she has area of redness to her upper arm by axilla that is tender to touch is felt like her previous DVTs. She denies any worsening improving factors. Denies any shortness of breath. States pain is sharp in nature and rates it a 5 out of 10 is worse with palpation patient also states she fell 2 weeks ago onto her left hip and has had left hip pain since then. States pain is sharp in nature and is much worse with walking. Associated symptoms: Deny chest pain, fever(s) or rash Review of Systems Const: Denies: fever(s), chills, body aches or change in appetite Eyes: Denies: blurry vision or eye discomfort ENMT: Denies: throat pain or dental pain Card: Denies: chest pain Resp: Denies: dyspnea GI: Denies: abdominal pain, nausea, vomiting or diarrhea : Denies: dysuria Musc: Reports: extremity pain; Denies: neck pain or back pain Skin/Breast: Denies: rash Neuro: Denies: headache(s) Psych: Denies: depression Horace/Lymph: Denies: easy bruising All/Imm: Denies: urticaria PFSH ED PFSH: Medical History DVT (deep venous thrombosis) Surgical History History of appendectomy History of hip surgery History of hysterectomy Family History Other CAD (coronary artery disease) Myocardial infarction Denies family history of Diabetes Social History Smoking and tobacco status: current every day smoker cigarettes Packs smoked per day: 0.5 Alcohol intake: never Physical Exam Const: COMMON NORMALS: no acute distress, patient oriented x3 and healthy appearing HENMT: COMMON NORMALS: normocephalic and atraumatic HEAD & SCALP: normocephalic and atraumatic Eye: COMMON NORMALS: Equal, round and reactive pupils present and EOMs intact bilaterally PUPIL: Yes Equal, round and reactive pupils present Neck/C-Spine: COMMON NORMALS: full ROM and supple Chest: COMMONS NORMALS: normal inspection of the chest and normal palpation of entire chest wall Resp: COMMON NORMALS: normal respiratory effort, No retractions, No use of accessory muscles and clear to auscultation bilaterally AUSCULTATION: clear to auscultation bilaterally Cardio: COMMON NORMALS: regular rate, regular rhythm and No murmurs present (Cardio) RATE: regular rate RHYTHM: regular rhythm GI: COMMON NORMALS: Normal to inspection, nondistended, normoactive bowel sounds present, Soft to palpation, non-tender and no masses PALPATION: Yes Soft to palpation Extremity: COMMON NORMALS: full ROM NARRATIVE EXTREMITY EXAM: Tenderness over left upper arm with slight erythema no distal swelling Neuro: COMMON NORMALS: patient oriented x3, moves all extremities and no focal motor deficits Psych: COMMON NORMALS: mental status grossly normal, Normal thought process present and cooperative THOUGHT PROCESS: Normal thought process present Skin: COMMON NORMALS: no rashes or lesions noted and no wounds GENERAL SKIN EXAM: no rashes or lesions noted Procedures Abscess I/D Site: upper extremity Side (if applicable): left Local Anesthetic: lidocaine 1% Amount of anesthesia used (mL): 6 Technique: incised with #11 blade Amount of fluid expressed (mL): 5 Packing used?: none Course Vital Signs: Vital signs: Vital Signs Temperature 97.9 F 07/10/20 11:50 Pulse Rate 83 07/10/20 13:00 Respiratory Rate 18 07/10/20 13:00 Blood Pressure 117/73 07/10/20 13:00 Pulse Oximetry 97 07/10/20 13:00 MDM - Extremity (Nontraumatic) MDM Narrative: Medical decision making narrative: Patient presents with the hard area of erythema to left upper arm that was a small abscess. Patient has no signs of blood clot or DVT. Patient's hip x-ray here is negative. I did incise that area and will place her on Bactrim and she is to do warm compresses. Patient understands agrees to plan. Imaging Data^: US Vascular: My impression: No DVT to left upper arm X-ray left hip: Attestation: I personally reviewed and interpreted this imaging study as follows: My impression: No obvious fracture Discharge Plan Discharge Patient Disposition: Home Clinical Impression: Hip pain, left, Abscess Condition: Stable Prescriptions: New Bactrim DS 800-160 mg tablet 1 tab PO BID 10 Days Qty: 20 RF: 0 No Action nitroglycerin 0.4 mg tablet, sublingual 0.4 mg SUBLINGUAL Q5M PRN (Reason: chest pain) Qty: 25 RF: 2 warfarin 10 mg tablet 10 mg PO DAILY RF: 0 clonazepam 1 mg tablet 1 mg PO DAILY RF: 0 hydrocodone-acetaminophen 10-325 mg tablet 1 tab PO DAILY RF: 0 ibuprofen 600 mg tablet 600 mg PO DAILY RF: 0 albuterol sulfate [ProAir HFA] 90 mcg/actuation HFA aerosol inhaler See Rx Instructions .ROUTE .COMPLEX RF: 0 fluoxetine 20 mg capsule 60 mg PO DAILY RF: 0 fluticasone propionate 50 mcg/actuation spray,suspension 50 mcg INTRANASAL DAILY RF: 0 Vitamin Plus Low Iron 27 mg iron- 1 mg tablet 1 tab PO DAILY RF: 0 Acidophilus 1 cap PO DAILY RF: 0 Discharge Orders: Discharge Order (Routine); Ordered 07/10/20 Ordered By: Desmond Gomes Referrals: Vera Dominique FNP [Primary Care Provider] - 1-3 days Discharge Diet: Advance as tolerated Discharge Activity: Resume usual activity Patient Instructions: Abscess Incision and Drainage (ED), Arthralgia (ED) Coding Level of Care Code ED 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
--- NOTE | 2020-07-10 12:48 | XR_ITS ---
WS: [id number] Exam: [place] [id number] Date/Time of Exam: 07/10/2020 12:48 PM Reason For Exam: pain Findings: There are no fractures or bone anomalies. The bony elements are in adequate alignment. There are no soft tissue calcifications or infiltration. The joint spaces are smooth and intact. XR/[place] [id number] IMPRESSION: Negative left humerus.
[2020-07-10 13:00] VITALS: BP 117/73; PULSE 83; RESP 18; O2SAT 97
[2020-07-10] MEDS: HYDROcodone-acetaminophen 7.5-325 mg Tablet 1 TAB PO (13:08)
--- NOTE | 2020-07-10 13:08 | XR_ITS ---
WS: [id number] Exam: XR hip LT 2-3V wo/w pel* [id number] Date/Time of Exam: 07/10/2020 1:08 PM Reason For Exam: pain post fall Findings: A total hip prosthesis is in place in excellent position. No sign of fracture or loosening. Normal so ft tissues. XR/XR hip LT 2-3V wo/w pel* [id number] IMPRESSION: 1. Unremarkable total hip prosthesis.
--- NOTE | 2020-07-10 13:14 | PC.NURSE ---
patient later stated she slipped on a wet floor and fell x2 weeks ago, has had constant left hip pain since and requesting a xray
[2020-07-10 13:34] VITALS: BP 117/73; PULSE 82; RESP 18; O2SAT 97
== END 2020-07-10 13:34 | disposition home or self-care (01) ==
PROVIDERS: Emergency Provider Emergency Medicine; PCP Nurse Practitioner Family
DX: M25.552 Pain in left hip (principal); L02.414 Cutaneous abscess of left upper limb; Z79.01 Long term (current) use of anticoagulants; Z86.718 Personal history of other venous thrombosis and embolism; F17.210 Nicotine dependence, cigarettes, uncomplicated
CPT/HCPCS: 10060; 12345; 73060; 73502; 93971; 99281; 99283

== ENCOUNTER 2020-07-12 12:42 | Emergency (ER) | payer MEDICAID, SELFPAY ==
[2020-07-12 13:19] VITALS: BP 127/66; PULSE 85; RESP 18; TEMP 36.3; O2SAT 99; BMI 30.9
[2020-07-12 14:48] LABS: INR 2.46 (0.8-1.2)
[2020-07-12 14:53] LABS: Basophils # 0.1 10^3/uL (0.0-0.1); Basophils % 0.6 %; Eosinophils # 0.2 10^3/uL (0.0-0.8); Eosinophils % 1.3 %; Hemoglobin 11.9 g/dL (11.5-15.3); Lactate (Lactic Acid level) 0.7 mmol/L (0.5-2.2); Lymphocytes # 4.3 10^3/uL (0.8-4.8); Lymphocytes % 34.5 %; Mean Corpuscular HGB Conc 31.3 g/dL (30.0-36.0); Mean Corpuscular Hemoglobin 31.2 pg (28.0-34.0); Mean Corpuscular Volume 99.5 fL (81-99); Mean Platelet Volume 10.5 fL (7.4-10.4); Monocytes # 0.6 10^3/uL (0.2-0.9); Neutrophils # 7.25 10^3/uL (1.8-7.7); Neutrophils % 58.2 %; Nucleated Red Blood Cells % 0 %; Platelet Count 301 10^3/cmm (130-400); Red Blood Count 3.82 10^6/uL (4.1-5.3); Red Cell Distribution Width 15.8 % (12.1-15.1); White Blood Count 12.5 10^3/uL (4.0-10.0)
[2020-07-12 14:55] LABS: Alanine Aminotransferase 13 U/L (0-33); Albumin Level 4.2 g/dL (3.5-5.2); Alkaline Phosphatase 110 IU/L (35-105); Aspartate Amino Transferase 19 U/L (0-32); Blood Urea Nitrogen 8 mg/dL (8-23); Calcium 9.2 mg/dL (8.5-10.5); Carbon Dioxide 25 mmol/L (22-29); Chloride 99 mmol/L (98-107); Globulin 2.9 g/dL (1.3-4.6); Glomerular Filtration Rate 85.1 mL/min (90-130); Glucose 92 mg/dL (65-115); Lipase 22 U/L (13-60); Osmolality Calculated 274 mOsm/kg (285-295); Sodium 133 mmol/L (136-145); Total Bilirubin 0.2 mg/dL (0.15-1.2); Total Protein 7.1 g/dL (6.6-8.7)
[2020-07-12 15:23] LABS: Add Urine Microscopic? NO
[2020-07-12 15:30] LABS: Bilirubin Urine Neg (Negative); Blood Urine Neg (Negative); Glucose Urine UA Norm (Normal); Ketones Urine Negative (Negative); Leukocyte Esterase Urine Negative (Negative); Nitrate Urine Negative (Negative); Protein Urine Neg (Negative); Specific Gravity, Urine 1.005 (1.005-1.030); Urine Appearance Clear (CLEAR); Urine Color Straw (Yellow); Urobilinogen Urine Norm (Negative); pH Urine 6 (5-7)
--- NOTE | 2020-07-12 15:58 | W.ED.ABDPA2 ---
HPI - Abdominal Pain General: Chief Complaint: Abdominal Pain Stated Complaint: STOMACH PAIN Time Seen by Provider: 07/12/20 14:38 Source: patient Mode of arrival: ambulatory Limitations: no limitations History of Present Illness: HPI narrative: Hs been taking norco with no improvement. MD elicited complaint: abdominal pain Onset (ago): day(s) (3) Pain Consistency: constant Location: Other (lower abdomen) Quality: sharp Radiation: none Exacerbating factors: nothing Relieving factors: nothing Associated Symptoms: Reports diarrhea (once, yesterday); Denies anorexia, belching, bloating, change in bowel habits, change in stool character, chills, coffee ground emesis, constipation, GI cramping, dyspepsia, dysuria, excessive flatus, fever(s), heartburn, hematochezia, hematuria, hematemesis, fecal incontinence, loose stools, melena, nausea, poor appetite, syncope and vomiting Review of Systems General: Reports: 10 or more systems reviewed and unremarkable except in HPI and below Const: Denies: fever(s) or chills Eyes: Denies: change in vision or blurry vision ENMT: Denies: throat pain, enlarged tonsils, odynophagia, hoarseness, mouth pain or swelling of lips/tongue Card: Denies: syncope Resp: Denies: dyspnea, productive cough or non-productive cough GI: Reports: diarrhea (once, yesterday); Denies: nausea, vomiting, hematemesis, coffee ground emesis, heartburn, constipation, bloating, GI cramping, belching, excessive flatus, fecal incontinence, change in bowel habits, change in stool character, hematochezia or melena : Denies: dysuria or hematuria Musc: Denies: neck pain, back pain or extremity swelling Skin/Breast: Denies: rash, pruritus or erythema Neuro: Denies: headache(s), numbness in extremities or weakness in extremities Endo: Denies: polyuria, polydipsia or tired all the time PFSH ED PFSH: Medical History DVT (deep venous thrombosis) Surgical History History of appendectomy History of hip surgery History of hysterectomy Family History Other CAD (coronary artery disease) Myocardial infarction Denies family history of Diabetes Social History Smoking and tobacco status: current every day smoker cigarettes Packs smoked per day: 0.5 Alcohol intake: never Physical Exam Const: COMMON NORMALS: no acute distress, average body habitus, patient oriented x3, no limitations, healthy appearing, alert and well nourished HENMT: COMMON NORMALS: normocephalic, atraumatic and moist oral mucous membranes HEAD & SCALP: normocephalic and atraumatic Eye: COMMON NORMALS: Equal, round and reactive pupils present, EOMs intact bilaterally, conjunctivae normal and no scleral icterus CONJUNCTIVA: Yes conjunctivae normal PUPIL: Yes Equal, round and reactive pupils present Neck/C-Spine: COMMON NORMALS: no meningeal signs and no JVD Resp: COMMON NORMALS: normal respiratory effort, No retractions, No use of accessory muscles, clear to auscultation bilaterally and percussion normal AUSCULTATION: clear to auscultation bilaterally PERCUSSION: percussion normal Cardio: COMMON NORMALS: no JVD, regular rate, regular rhythm, S1 normal heart sound present, S2 normal heart sound present, No gallops present (Cardio), No clicks present (Cardio), No murmurs present (Cardio), No rub (Cardio) and Peripheral pulses 2+ throughout RATE: regular rate RHYTHM: regular rhythm HEART SOUNDS: S1 normal heart sound present and S2 normal heart sound present PERIPHERAL PULSES: Peripheral pulses 2+ throughout GI: COMMON NORMALS: Soft to palpation, non-tender, No hepatosplenomegaly present, no masses and no bruits PALPATION: Yes Soft to palpation, Yes Tenderness to palpation present (GI) (generalized), Yes Guarding due to palpation present (GI), Yes No hepatosplenomegaly present and Yes Rebound tenderness present (equivocal) Back/Pelvis: SACROILIAC JOINTS: Yes SI joint(s) abnormal SI joint details: tender to palpation (bilateral) Extremity: COMMON NORMALS: normal to inspection, full ROM, capillary refill normal, no calf tenderness and no pedal edema Neuro: COMMON NORMALS: patient oriented x3 SENSORIUM/ORIENTATION: Yes alert MENINGEAL SIGNS: Yes no meningeal signs Skin: COMMON NORMALS: no rashes or lesions noted, no wounds, turgor normal, no jaundice, no petechiae and no mottling GENERAL SKIN EXAM: no rashes or lesions noted and turgor normal Course Reevaluation(s): Reevaluation #1: Discussed her labs and imaging with her - negative for acute findings. Will discharge her home with no new orders. She voiced understanding and is in agreement with the plan. She may have sacroiliitis as a lot of her pain is in the area of the SI joints and she says the pain started from her back and radiated to her abdomen. Will perform a trial of steroids. Time: 18:06 Vital Signs: Vital signs: Vital Signs Temperature 97.4 F L 07/12/20 13:19 Pulse Rate 97 07/12/20 18:26 Respiratory Rate 18 07/12/20 18:26 Blood Pressure 93/69 07/12/20 18:26 Pulse Oximetry 96 07/12/20 18:26 MDM - Abdominal Pain MDM Narrative: Medical decision making narrative: 59 year old female who presented to the ED with low back pain. Examination yielded possible sacroiliitis. Evaluation was unremarkable. She is discharged home with a prescription for steroids. Medical Records: Attestation: I reviewed the patient's medical records. Lab Data: Attestation: I reviewed the patient's lab results. Labs: Lab Results 07/12/20 07/12/20 07/12/20 Range/Units 14:16 14:16 14:16 WBC 12.5 H (4.0-10.0) 10^3/ uL RBC 3.82 L (4.1-5.3) 10^6/u L Hgb 11.9 (11.5-15.3) g/dL Hct 38.0 (37.0-47.0) % MCV 99.5 H (81-99) fL MCH 31.2 (28.0-34.0) pg MCHC 31.3 (30.0-36.0) g/dL RDW 15.8 H (12.1-15.1) % Plt Count 301 (130-400) 10^3/c mm MPV 10.5 H (7.4-10.4) fL Neut % (Auto) 58.2 % Lymph % (Auto) 34.5 % [place] % (Auto) 5.0 % Eos % (Auto) 1.3 % Baso % (Auto) 0.6 % Neut # (Auto) 7.25 (1.8-7.7) 10^3/u L Lymph # (Auto) 4.3 (0.8-4.8) 10^3/u L [place] # (Auto) 0.6 (0.2-0.9) 10^3/u L Eos # (Auto) 0.2 (0.0-0.8) 10^3/u L Baso # (Auto) 0.1 (0.0-0.1) 10^3/u L Nucleated RBC % (a uto) 0 % Nucleated RBCs # 0.0 /100WBC PT (12.1-14.9) SECO NDS INR (0.8-1.2) Sodium 133 L (136-145) mmol/L Potassium 4.0 (3.5-5.1) mmol/L Chloride 99 (98-107) mmol/L Carbon Dioxide 25 (22-29) mmol/L Anion Gap 13.0 (5-19) BUN 8 (8-23) mg/dL Creatinine 0.7 (0.5-0.9) mg/dL GFR Calculation 85.1 L (90-130) mL/min Glucose 92 (65-115) mg/dL Calculated Osmolal ity 274 L (285-295) mOsm/k g Lactate 0.7 (0.5-2.2) mmol/L Calcium 9.2 (8.5-10.5) mg/dL Total Bilirubin 0.2 (0.15-1.2) mg/dL AST 19 (0-32) U/L ALT 13 (0-33) U/L Alkaline Phosphata se 110 H (35-105) IU/L Total Protein 7.1 (6.6-8.7) g/dL Albumin 4.2 (3.5-5.2) g/dL Globulin 2.9 (1.3-4.6) g/dL Lipase 22 (13-60) U/L Urine Color (Yellow) Urine Appearance (CLEAR) Urine pH (5-7) Ur Specific Gravit y (1.005-1.030) Urine Protein (Negative) Urine Glucose (UA) (Normal) Urine Ketones (Negative) Urine Blood (Negative) Urine Nitrate (Negative) Urine Bilirubin (Negative) Urine Urobilinogen (Negative) mg/dL Ur Leukocyte Serene ase (Negative) 07/12/20 07/12/20 Range/Units 14:16 14:39 WBC (4.0-10.0) 10^3/ uL RBC (4.1-5.3) 10^6/u L Hgb (11.5-15.3) g/dL Hct (37.0-47.0) % MCV (81-99) fL MCH (28.0-34.0) pg MCHC (30.0-36.0) g/dL RDW (12.1-15.1) % Plt Count (130-400) 10^3/c mm MPV (7.4-10.4) fL Neut % (Auto) % Lymph % (Auto) % [place] % (Auto) % Eos % (Auto) % Baso % (Auto) % Neut # (Auto) (1.8-7.7) 10^3/u L Lymph # (Auto) (0.8-4.8) 10^3/u L [place] # (Auto) (0.2-0.9) 10^3/u L Eos # (Auto) (0.0-0.8) 10^3/u L Baso # (Auto) (0.0-0.1) 10^3/u L Nucleated RBC % (a uto) % Nucleated RBCs # /100WBC PT 27.60 H (12.1-14.9) SECO NDS INR 2.46 H (0.8-1.2) Sodium (136-145) mmol/L Potassium (3.5-5.1) mmol/L Chloride (98-107) mmol/L Carbon Dioxide (22-29) mmol/L Anion Gap (5-19) BUN (8-23) mg/dL Creatinine (0.5-0.9) mg/dL GFR Calculation (90-130) mL/min Glucose (65-115) mg/dL Calculated Osmolal ity (285-295) mOsm/k g Lactate (0.5-2.2) mmol/L Calcium (8.5-10.5) mg/dL Total Bilirubin (0.15-1.2) mg/dL AST (0-32) U/L ALT (0-33) U/L Alkaline Phosphata se (35-105) IU/L Total Protein (6.6-8.7) g/dL Albumin (3.5-5.2) g/dL Globulin (1.3-4.6) g/dL Lipase (13-60) U/L Urine Color Straw (Yellow) Urine Appearance Clear (CLEAR) Urine pH 6 (5-7) Ur Specific Gravit y 1.005 (1.005-1.030) Urine Protein Neg (Negative) Urine Glucose (UA) Norm (Normal) Urine Ketones Negative (Negative) Urine Blood Neg (Negative) Urine Nitrate Negative (Negative) Urine Bilirubin Neg (Negative) Urine Urobilinogen Norm (Negative) mg/dL Ur Leukocyte Serene ase Negative (Negative) Imaging Data ^: Other CT: Attestation: I personally reviewed and interpreted this imaging study as follows: Radiologist's impression: [address] [address] [address] Scan Report Signed Patient: Jennifer Soto #: [id number] : 9Acct#:[id number] Age/Sex: 59 / FADM Date: 07/12/20 Loc: [facility] [place]/Bed: Attending Dr: Ordering Provider/Ordering MD: Nelda Griggs MD, [facility] [place] Date of Service: 07/12/20 Procedure(s): CT angio abdomen pelvis 17308 Accession Number(s): [id number] Report Number: [id number] PROCEDURE INFORMATION: Exam: CT Angiography Abdomen and Pelvis With Contrast Exam date and time: 07/12/2020 4:54 PM Age: 59 years old Clinical indication: Abdominal pain; Generalized; Prior surgery; Surgery type: Appy, hyst, tubal, bilat. 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 3D rendering (Not supervised by radiologist): MIP and/or 3D reconstructed images were created by the technologist. Radiation optimization: All CT scans at this facility use at least one of these dose optimization techniques: automated exposure control; mA and/or kV adjustment per patient size (includes targeted exams where dose is matched to clinical indication); or iterative reconstruction. Contrast material: OMNI 350; Contrast volume: 95 ml; Contrast route: INTRAVENOUS (IV); COMPARISON: CT abdomen pelvis w con* [id number] 12/15/2013 8:33 PM RADIATION DOSE METRICS: Total DLP (mGy-cm): 2031.08 FINDINGS: Lungs: There is some nonspecific peripheral ground-glass opacity posteriorly at the right lung base of uncertain significance. Correlation with clinical symptoms is suggested. Aorta: The aorta demonstrates mild atherosclerotic calcification. There is no evidence of an abdominal aortic aneurysm. Celiac trunk and mesenteric arteries: No occlusion or significant stenosis. Renal arteries: There is a single renal artery on each side without evidence of stenosis. Right iliac arteries: No occlusion or significant stenosis. Left iliac arteries: No occlusion or significant stenosis. Other veins: No acute venous thrombosis is identified. Liver: There is 1.5 cm sized area of low density anterior right lobe of the liver not significantly changed from previous. The absence of change in over 6 years is further confirmation of its benign nature. Gallbladder and bile ducts: There are bilateral hip replacements which cause artifact obscures portions of the pelvis.The gallbladder is normal. Pancreas: There is some fatty atrophy of the proximal body of the pancreas which is not changed compared with 12/15/2013. Spleen: The spleen is normal. Adrenals: The adrenal glands are normal. Kidneys and ureters: The kidneys are normal. There is no evidence of hydronephrosis. There is no evidence of renal or ureteral calcifications. Stomach and bowel: There is no evidence of intestinal obstruction. Appendix: Not identified Intraperitoneal space: Unremarkable. No free air. No significant fluid collection. Lymph nodes: Unremarkable. No enlarged lymph nodes. Urinary bladder: Unremarkable. No mass. Reproductive: There has been a hysterectomy. Bones/joints: There is compression deformity of the superior endplate of L2 which appears chronic but is new compared with 12/15/2013. There is old healed or healing fracture of the anterior right 5th rib which is new compared with the previous study. Soft tissues: . Collateral veins are noted in the anterior lower abdominal wall of uncertain significance. These could be related to a remote episode of venous thrombus. Other findings: There is no evidence of colitis/diverticulitis. CT/CT angio abdomen pelvis 07936 IMPRESSION: 1. No acute findings in the abdomen or pelvis. 2. Nonspecific ground-glass opacity at the posterior right lung base. Radiation Dose CTDIVOL = (mGy): DLP = 2031.08 (mGy-cm) Dictated By:Ifeanyi Vann Signed By:Terrie Vannigned Date/Time:07/12/201749 DD/ 48 Discharge Plan Discharge Patient Disposition: Home Clinical Impression: Bilateral sacroiliitis Abdominal pain Qualifiers: Abdominal location: generalized Qualified Code(s): R10.84 - Generalized abdominal pain Condition: Stable Prescriptions: New prednisone 20 mg tablet 20 mg PO DAILY 3 Days Qty: 3 RF: 0 Continued nitroglycerin 0.4 mg tablet, sublingual 0.4 mg SUBLINGUAL Q5M PRN (Reason: chest pain) Qty: 25 RF: 2 warfarin 10 mg tablet 10 mg PO DAILY RF: 0 clonazepam 1 mg tablet 1 mg PO DAILY RF: 0 hydrocodone-acetaminophen 10-325 mg tablet 1 tab PO DAILY RF: 0 ibuprofen 600 mg tablet 600 mg PO DAILY RF: 0 albuterol sulfate [ProAir HFA] 90 mcg/actuation HFA aerosol inhaler See Rx Instructions .ROUTE .COMPLEX RF: 0 fluoxetine 20 mg capsule 60 mg PO DAILY RF: 0 fluticasone propionate 50 mcg/actuation spray,suspension 50 mcg INTRANASAL DAILY RF: 0 Vitamin Plus Low Iron 27 mg iron- 1 mg tablet 1 tab PO DAILY RF: 0 Acidophilus 1 cap PO DAILY RF: 0 Bactrim DS 800-160 mg tablet 1 tab PO BID 10 Days Qty: 20 RF: 0 Discharge Orders: Discharge Order (Routine); Ordered 07/12/20 Ordered By: Nelda Griggs Referrals: Vera Dominique FNP [Primary Care Provider] - 1-3 days Discharge Diet: Usual diet Discharge Activity: Increase activity as tolerated Patient Instructions: Sacroiliitis (ED), Abdominal Pain (ED) Activity Restrictions/Additional Instructions: Return for any new or worsening symptoms. Follow-up with your primary care provider within 3 days. Continue home medications as prescribed. Take the steroids as prescribed. Discharge Date/Time: 07/12/20 18:28 Coding Level of Care Code ED Typing Teacher for Chg Fwd Exam Comprehensive
[2020-07-12] MEDS: ondansetron 2 mg/ML SDV 2 mL 4 MG IVP (16:09)
[2020-07-12 16:12] VITALS: RESP 20
[2020-07-12] MEDS: morphine 4 mg/mL SDV 1 mL 8 MG IVP (16:12)
[2020-07-12] MEDS: iohexol 350 mg/mL 100 mL Btl IV (17:14)
[2020-07-12 18:26] VITALS: BP 93/69; PULSE 97; RESP 18; O2SAT 96
== END 2020-07-12 18:28 | disposition home or self-care (01) ==
PROVIDERS: Nurse Practitioner Family; Emergency Provider Family Medicine; PCP Nurse Practitioner Family
DX: R10.84 Generalized abdominal pain (principal); M46.1 Sacroiliitis, not elsewhere classified; Z79.01 Long term (current) use of anticoagulants; F17.210 Nicotine dependence, cigarettes, uncomplicated
CPT/HCPCS: 12345; 36415; 74174; 80053; 81003; 83605; 83690; 85025; 85610; 96374; 96375; 99283; J2270; J2405; Q9967

== ENCOUNTER 2020-08-10 09:00 | Emergency (ER) | payer MEDICAID, SELFPAY ==
--- NOTE | 2020-08-10 | CT_ITS ---
WS: [id number] CT LEFT KNEE, NONCONTRAST. HISTORY: Pain, fell 2 days ago. Technique: All CT scans at [facility] use at least one of these dose optimization techniq ues: automated exposure control; mA and/or kV adjustment per patient size (includes targeted exams wh ere dose is matched to clinical indication); or iterative reconstruction. DLP: 257.07 mGy.cm COMPARISON: None available. No femoral or tibial plateau fractures are identified. There is a small osseous density along the lat eral inferior patella which may be an osteophyte or tiny avulsion fracture. There is no displacement of the patella. No significant joint effusion. There is soft tissue edema anterior to the patella. The soft tissue ed tony is closely associated with the possible tiny avulsion fracture from the patella. Scattered calcifications in the popliteal and tibial arteries. Varicosities are noted in the superfic ial soft tissues. CT/CT knee LT wo con* [id number] IMPRESSION: 1. Tiny avulsion fracture versus osteophyte from the inferior lateral patella. 2. No additional fractures. 3. Moderate soft tissue edema superficial to the patella.
[2020-08-10 09:01] VITALS: BP 104/86; PULSE 92; RESP 18; TEMP 36.9; O2SAT 96; BMI 30.7
--- NOTE | 2020-08-10 09:06 | W.ED.EXTPRO ---
HPI - Extremity Problem General: Chief complaint: Extremity Injury, Lower Stated complaint: LEFT KNEE PAIN/ FALL Time Seen by Provider: 08/10/20 09:02 History of Present Illness: HPI Narrative: 59-year-old female presents to the emergency room complaining of left knee pain. She fell 2 days ago she is on Coumadin is over anticoagulated she was seen initially in [place] had negative plain film x-rays complaining of continued pain. MD Complaint: joint swelling and joint pain Onset (ago): day(s) Pain Consistency: constant Location: left and knee Quality: aching Radiation: none Relieving factors: rest Exacerbating factors: range of motion, walking and palpation Associated symptoms: Deny arthralgias, chest pain, fever(s), myalgias, rash or short of breath Review of Systems Const: Denies: fever(s) ENMT: Denies: throat pain, ear or mastoid pain, nasal discharge or nasal congestion Card: Denies: chest pain Resp: Denies: dyspnea, productive cough or non-productive cough GI: Denies: abdominal pain, nausea, vomiting, hematemesis, coffee ground emesis, diarrhea, constipation, bloating, hematochezia or melena : Denies: flank pain, difficulty voiding, dysuria, urinary frequency or urinary urgency Skin/Breast: Denies: rash PFSH ED PFSH: Medical History (Updated 08/10/20 @ 10:22 by Jb Bradford DO) DVT (deep venous thrombosis) Surgical History History of appendectomy History of hip surgery History of hysterectomy Family History Other CAD (coronary artery disease) Myocardial infarction Denies family history of Diabetes Social History Smoking and tobacco status: current every day smoker cigarettes Packs smoked per day: 0.5 Alcohol intake: never Physical Exam Const: COMMON NORMALS: no acute distress GENERAL APPEARANCE: cooperative ORIENTATION/CONSCIOUSNESS: Yes awake, Yes oriented to person, Yes oriented to place and Yes oriented to time HENMT: COMMON NORMALS: normocephalic, atraumatic and hearing grossly normal bilaterally HEAD & SCALP: normocephalic and atraumatic Eye: COMMON NORMALS: Equal, round and reactive pupils present, EOMs intact bilaterally, conjunctivae normal and no scleral icterus CONJUNCTIVA: Yes conjunctivae normal PUPIL: Yes Equal, round and reactive pupils present Neck/C-Spine: COMMON NORMALS: no JVD Resp: COMMON NORMALS: normal respiratory effort, No retractions, No use of accessory muscles and clear to auscultation bilaterally AUSCULTATION: clear to auscultation bilaterally Cardio: COMMON NORMALS: no JVD, regular rate, regular rhythm and No murmurs present (Cardio) RATE: regular rate RHYTHM: regular rhythm GI: COMMON NORMALS: Soft to palpation and No hepatosplenomegaly present AUSCULTATION: Yes normoactive bowel sounds PALPATION: Yes Soft to palpation, No Tenderness to palpation present (GI), No Guarding due to palpation present (GI) and Yes No hepatosplenomegaly present Extremity: NARRATIVE EXTREMITY EXAM: Significant ecchymosis on the anterior aspect of the left knee primarily at foci is at the patella. There is no active drainage no redness or erythema moderate amount of swelling neurovascularly intact distally Neuro: SENSORIUM/ORIENTATION: Yes oriented to person, Yes oriented to place and Yes oriented to time Course Vital Signs: Vital signs: Vital Signs Temperature 98.4 F 08/10/20 09:01 Pulse Rate 85 08/10/20 09:55 Respiratory Rate 18 08/10/20 10:22 Blood Pressure 103/72 08/10/20 09:55 Pulse Oximetry 98 08/10/20 10:22 MDM - Extremity (Nontraumatic) MDM Narrative: Medical decision making narrative: Potential small avulsion fracture versus osteophyte on the CT of the knee is a lot of swelling irritating is from the blood no occult fracture identified. We will go ahead and discharge patient home gave her a higher dose of hydrocodone to use for pain. she related to me that the morphine we have given her did not work however when I checked with the nurse after she got a dose of morphine she actually got somewhat sedate and required oxygen supplementation for a brief time. However follow-up with her primary care doctor and we gave her a walker to use as needed at home. Lab Data: Labs: Lab Results 08/10/20 Range/Units 08:39 PT 27.50 H (12.1-14.9) SECO NDS INR 2.46 H (0.8-1.2) Discharge Plan Discharge Patient Disposition: Home Clinical Impression: Acute knee pain, Hemarthrosis Condition: Stable Prescriptions: New hydrocodone-acetaminophen 7.5-325 mg tablet 1 tab PO Q6H PRN (Reason: pain) Qty: 20 RF: 0 (DME) DME: Walker Unit 1 ea .Route DAILY Qty: 1 RF: 0 No Action nitroglycerin 0.4 mg tablet, sublingual 0.4 mg SUBLINGUAL Q5M PRN (Reason: chest pain) Qty: 25 RF: 2 warfarin 10 mg tablet 10 mg PO DAILY RF: 0 clonazepam 1 mg tablet 1 mg PO TID PRN (Reason: Anxiety) RF: 0 hydrocodone-acetaminophen 10-325 mg tablet 1 tab PO QID PRN (Reason: Pain) RF: 0 ibuprofen 600 mg tablet 600 mg PO TID PRN (Reason: Pain) RF: 0 albuterol sulfate [ProAir HFA] 90 mcg/actuation HFA aerosol inhaler 2 puff inhalation Q4H PRN (Reason: Shortness Of Breath) RF: 0 fluoxetine 20 mg capsule 60 mg PO DAILY RF: 0 fluticasone propionate 50 mcg/actuation spray,suspension 2 spray INTRANASAL DAILY PRN (Reason: Allergy Symptoms) RF: 0 Vitamin Plus Low Iron 27 mg iron- 1 mg tablet 1 tab PO DAILY RF: 0 Acidophilus 1 cap PO BID RF: 0 Tylenol Extra Strength 500 mg Tablet 1,000 mg PO PRN RF: 0 Sudogest 30 mg tablet See Rx Instructions .ROUTE .COMPLEX RF: 0 Discharge Orders: Discharge Order (Routine); Ordered 08/10/20 Ordered By: Jb Bradford Referrals: Vera Dominique FNP [Primary Care Provider] - Coding Level of Care Code ED Field Associate for Chg Fwd Exam Detailed
[2020-08-10 09:19] VITALS: O2SAT 94
--- NOTE | 2020-08-10 09:21 | CT_ITS ---
WS: [id number] CT LEFT KNEE, NONCONTRAST. HISTORY: Pain, fell 2 days ago. Technique: All CT scans at [facility] use at least one of these dose optimization techniq ues: automated exposure control; mA and/or kV adjustment per patient size (includes targeted exams wh ere dose is matched to clinical indication); or iterative reconstruction. DLP: 257.07 mGy.cm COMPARISON: None available. No femoral or tibial plateau fractures are identified. There is a small osseous density along the lat eral inferior patella which may be an osteophyte or tiny avulsion fracture. There is no displacement of the patella. No significant joint effusion. There is soft tissue edema anterior to the patella. The soft tissue ed tony is closely associated with the possible tiny avulsion fracture from the patella. Scattered calcifications in the popliteal and tibial arteries. Varicosities are noted in the superfic ial soft tissues.
--- NOTE | 2020-08-10 09:30 | PC.NURSE ---
pt to CT by stretcher with tech
[2020-08-10] MEDS: morphine 4 mg/mL SDV 1 mL 2 MG IVP (09:52)
[2020-08-10] MEDS: ondansetron 2 mg/ML SDV 2 mL 4 MG IVP (09:52)
[2020-08-10 09:55] VITALS: BP 103/72; PULSE 85; O2SAT 98
[2020-08-10 09:59] LABS: INR 2.46 (0.8-1.2)
[2020-08-10 10:22] VITALS: RESP 18; O2SAT 98
[2020-08-10] MEDS: fentaNYL 50 mcg/mL INJ 2mL IVP (10:22)
[2020-08-10 11:47] VITALS: BP 96/64; PULSE 89; RESP 18; O2SAT 96
--- NOTE | 2020-08-15 15:22 | PC.SOCIAL ---
Precert completed for walker. Pre-Cert number assigned: [id number]. Faxed to Home.
== END 2020-08-10 11:47 | disposition home or self-care (01) ==
PROVIDERS: Emergency Provider Family Medicine; PCP Nurse Practitioner Family
DX: M25.562 Pain in left knee (principal); M25.062 Hemarthrosis, left knee; Z79.01 Long term (current) use of anticoagulants; F17.210 Nicotine dependence, cigarettes, uncomplicated
CPT/HCPCS: 12345; 73700; 85610; 96374; 96375; 99283; E0114; J2270; J2405; J3010

== ENCOUNTER 2020-08-21 13:18 | Outpatient (CLI) | payer MEDICAID, SELFPAY ==
[2020-08-21 14:35] LABS: INR 2.63 (0.8-1.2)
== END 2020-08-21 13:19 | disposition home or self-care (01) ==
LOC: ONCMED 13:20
PROVIDERS: PCP Nurse Practitioner Family; Visit Provider Internal Medicine Medical Oncology
DX: D50.9 Iron deficiency anemia, unspecified (principal); I82.502 Chronic embolism and thrombosis of unspecified deep veins of left lower extremity; Z79.01 Long term (current) use of anticoagulants; M41.126 Adolescent idiopathic scoliosis, lumbar region; M51.36 Other intervertebral disc degeneration, lumbar region
CPT/HCPCS: 36415; 72114; 85610

== ENCOUNTER → 2020-09-11 10:15 | Outpatient (BNVA) | payer MEDICAID, SELFPAY | PROVIDERS: PCP Nurse Practitioner Family; Referring Provider Orthopaedic Surgery; Visit Provider Anesthesiology Pain Medicine | DX: M54.9 Dorsalgia, unspecified (principal); M47.816 Spondylosis without myelopathy or radiculopathy, lumbar region; M48.061 Spinal stenosis, lumbar region without neurogenic claudication; F17.210 Nicotine dependence, cigarettes, uncomplicated | CPT/HCPCS: 99205 ==

== ENCOUNTER → 2020-09-18 14:04 | Outpatient (BNVA) | payer MEDICAID, SELFPAY | PROVIDERS: PCP Nurse Practitioner Family; Visit Provider Anesthesiology Pain Medicine | DX: M54.16 Radiculopathy, lumbar region (principal); M48.061 Spinal stenosis, lumbar region without neurogenic claudication; M54.9 Dorsalgia, unspecified; Z79.891 Long term (current) use of opiate analgesic | CPT/HCPCS: 64493; 64494; 64495; J1030; J3490 ==

== ENCOUNTER 2020-09-19 13:30 | Outpatient (CLI) | payer MEDICAID, SELFPAY ==
[2020-09-19 14:25] LABS: Basophils # 0.1 10^3/uL (0.0-0.1); Basophils % 0.8 %; Eosinophils # 0.1 10^3/uL (0.0-0.8); Eosinophils % 0.7 %; Hematocrit 36.7 % (37.0-47.0); Hemoglobin 11.3 g/dL (11.5-15.3); Lymphocytes # 2.9 10^3/uL (0.8-4.8); Lymphocytes % 28.7 %; Mean Corpuscular HGB Conc 30.8 g/dL (30.0-36.0); Mean Corpuscular Volume 100.5 fL (81-99); Mean Platelet Volume 10.2 fL (7.4-10.4); Monocytes # 0.5 10^3/uL (0.2-0.9); Monocytes % 5.3 %; Neutrophils # 6.57 10^3/uL (1.8-7.7); Neutrophils % 64.2 %; Nucleated Red Blood Cells % 0 %; Platelet Count 297 10^3/cmm (130-400); Red Blood Count 3.65 10^6/uL (4.1-5.3); Red Cell Distribution Width 15.4 % (12.1-15.1); White Blood Count 10.2 10^3/uL (4.0-10.0)
[2020-09-19 14:42] LABS: INR 3.33 (0.8-1.2)
[2020-09-19 14:48] LABS: Alanine Aminotransferase 12 U/L (0-33); Alkaline Phosphatase 92 IU/L (35-105); Anion Gap 11.8 (5-19); Aspartate Amino Transferase 20 U/L (0-32); Blood Urea Nitrogen 8 mg/dL (8-23); Calcium 9.4 mg/dL (8.5-10.5); Carbon Dioxide 26 mmol/L (22-29); Chloride 101 mmol/L (98-107); Globulin 3.2 g/dL (1.3-4.6); Glomerular Filtration Rate 101.6 mL/min (90-130); Glucose 112 mg/dL (65-115); Osmolality Calculated 279 mOsm/kg (285-295); Potassium 3.8 mmol/L (3.5-5.1); Sodium 135 mmol/L (136-145); Total Bilirubin 0.2 mg/dL (0.15-1.2); Total Protein 7.2 g/dL (6.6-8.7)
[2020-09-19 16:42] LABS: Iron 55 ug/dL (37-145); Percent Saturation 26.4 % (20-50); Total Iron Binding Capacity 208 mcg/dl; Unsaturated Iron Binding 153 ug/dL (112-347)
--- NOTE | 2020-09-23 10:38 | ONC FU_ITS ---
Dr. Humphrey Patient Follow-Up Note Patient: Jennifer Soto Unit #: [id number]: 1960 Dicatated By: Tulio Humphrey M.D.Date of Visit:Sep 19, 2020 Onc Med Follow-up/Prog Note Chief Complaint: Recurrent thromboembolism. History of Present Illness: This is a 59 year-old woman who with recurrent episodes of deep vein thrombosis. Thus far the episodes have been limited to the left leg. 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 She has not had any documented underlying hypercoagulability. However, she has remained chronically anticoagulated with warfarin. Her other medical illnesses include degenerative arthritis and fibromyalgia with chronic pain, multinodular goiter, and recurrent pancreatitis. She has seen Dr. Liu for management of chronic intractable migraine headache. She also has chronic anxiety/depression. She underwent left total hip arthroplasty in October 2012, and she underwent right total hip arthroplasty in February 2016. She has a long history of smoking, currently in the range of 1/2 pack of cigarettes daily. In March 2018 she was found to be mildly anemic. Her laboratory studies were consistent with iron deficiency. She was not able to tolerate an oral iron supplement. In April 2018 she was given a single infusion of Injectafer. She had a good clinical response. As of her follow-up visit in May 2020 she was slightly anemic again with hemoglobin 11.4 g. Subsequent to that visit, she required treatment for an abscess under the left kneecap which developed following a traumatic injury. She is seen for a followup visit. She has still been on antibiotic therapy with Bactrim for the knee abscess. She says she has had quite a few falls, and she was seen in pain clinic yesterday. Her activity has been limited. ECOG score is 2. She has good appetite. She has not had fever. She does report having some hot flashes. She has no shortness of breath, cough, or chest pain. She has been having some acid reflux and she also complains of constipation. She has urinary frequency and urgency, and she does have some incontinence. She has chronic back pain and also fairly generalized joint pain. She has had some headaches. She says she is always dizzy. She has some tingling in her left leg. Medications: 9Pantoprazole Sodium 1 Tablet (of 40 mg) Tablet, enteric coated Oral daily PRN, Cholecalciferol 1 Capsule (of 17894 Units) Oral q 7 days, ClonazePAM 1 (1 mg) Tablet Oral t.i.d., EQ Mucus ER 1 Tablet (of 600 mg) Tablet SR 12 HR Oral b.i.d. PRN, Flonase 2 spray(s) (of 50 mcg/act) Suspension Nasal daily, Hydrocodone-Acetaminophen 10-325 mg - Take 1 Tablet Oral four times a day PRN, Vitamins 1 Tablet Oral daily, PROzac 3 Capsule (of 20 mg) Oral daily, Sudafed 1 (30 mg) Tablet Oral daily PRN, Warfarin Sodium 1 (10 mg) Tablet Oral daily Allergies: compazine Vital Signs: Performed on Sep 19, 2020 15:04 Height - 65.00 in Weight - 191.6 lbs (HIGH) BSA - 1.94 sq.m BMI - 31.88 (HIGH) Temperature - 97.4 F (LOW) Pulse - 89 /min Respiration - 17 /min BP - 148/84 mm(hg) (HIGH) O2 Sat - 98 % Pain - 4 Physical Examination: Constitutional - She does not appear acutely ill, but she has somewhat limited mobility, Eyes - Sclerae nonicteric. Conjunctivae clear, ENMT - No lesions noted in the oral cavity, Hematologic/Lymphatic - No cervical, clavicular, or axillary adenopathy, Respiratory - Lungs are clear with some decrease in air movement bilaterally, Cardiovascular - Heart rhythm is regular. There is no murmur, gallop, or rub noted, Abdomen - Soft. Liver and spleen are not enlarged. There is no abdominal mass or ascites noted and there is no inguinal adenopathy, Extremities - There are venous stasis changes bilaterally. There is mild swelling of the left leg, which is chronic. There is some residual skin discoloration over the left knee, Neurologic - There are no focal neurologic deficits noted. Lab/Imaging: Test performed on Sep 19, 2020 13:59 Sodium 135 mmol/L Potassium 3.8 mmol/L Chloride 101 mmol/L CO2 26 mmol/L Anion Gap 11.8 BUN 8 mg/dL Creatinine 0.6 mg/dL Cr Clearance (Est) 135.09 mL/min eGFR 101.6 mL/min Glucose 112 mg/dL Osmolality - Calculated 279 mOsm/kg Calcium 9.4 mg/dL Protein, Total 7.2 g/dL Albumin 4.0 g/dL Globulin 3.2 g/dL Bilirubin, Total 0.2 mg/dL ALT (SGPT) 12 U/L AST (SGOT) 20 U/L Alkaline Phosphatase 92 IU/L PT 35.10 SECONDS WBC 10.2 10 3/uL INR 3.33 RBC 3.65 10 6/uL HGB 11.3 g/dL HCT 36.7 % MCV 100.5 fL MCH 31.0 pg MCHC 30.8 g/dL RDW 15.4 % Platelet Count 297 10 3/cmm MPV 10.2 fL Neutrophils 6.57 10 3/uL Lymphocytes 2.9 10 3/uL Monocytes 0.5 10 3/uL Eosinophils 0.1 10 3/uL Basophils 0.1 10 3/uL Neutrophil % 64.2 % Lymphocyte % 28.7 % Monocyte % 5.3 % Eosinophil % 0.7 % Basophils % 0.8 % NRBC % 0 % Historic Problem List: 1. 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 She has no documented hypercoagulability. She has had no evidence of new thrombosis while on therapeutic anticoagulation with warfarin. 2. Iron deficiency anemia, requiring parenteral iron replacement in April 2018. 3. Degenerative arthritis with chronic musculoskeletal pain and fatigue. 4. Multinodular goiter. 5. Chronic migraine. 6. History of recurrent pancreatitis. 7. Chronic anxiety/depression. 8. Nicotine dependence. Problems Addressed with this Encounter and Plan: 1. Recurrent episodes of deep vein thrombosis of the left leg with associated postphlebitic syndrome. She has recently been on antibiotic therapy for left knee abscess, but thus far there has been no documented acute thrombosis while on anticoagulation with warfarin. She will continue warfarin at the current dosage, but she will need to have her pro time monitor closely while she is on antibiotic therapy. She will be scheduled for a followup visit in 3 months. 2. She has worsening constipation. In reviewing her records, it has been 10 years since her last colonoscopy. As such, I will arrange for her to see Dr. Dick for screening colonoscopy. 3. She has chronic fatigue and musculoskeletal pain. Her pain generally has been managed adequately with hydrocodone/APAP, but she has now being seen at pain clinic. Signed By: Tulio Humphrey M.D. <<Signature on File>>
== END 2020-09-19 13:31 | disposition home or self-care (01) ==
LOC: ONCMED 13:31
PROVIDERS: PCP Nurse Practitioner Family; Visit Provider Internal Medicine Medical Oncology
DX: I82.502 Chronic embolism and thrombosis of unspecified deep veins of left lower extremity (principal); Z79.01 Long term (current) use of anticoagulants; D50.9 Iron deficiency anemia, unspecified; M19.90 Unspecified osteoarthritis, unspecified site; M79.18 Myalgia, other site; R53.83 Other fatigue; E04.2 Nontoxic multinodular goiter; G43.909 Migraine, unspecified, not intractable, without status migrainosus; K86.1 Other chronic pancreatitis; F32.9 Major depressive disorder, single episode, unspecified; F41.9 Anxiety disorder, unspecified; F17.210 Nicotine dependence, cigarettes, uncomplicated; Z79.899 Other long term (current) drug therapy
CPT/HCPCS: 36415; 80053; 83540; 83550; 85025; 85610; 99214

== ENCOUNTER 2020-10-01 14:44 | Outpatient (CLI) | payer MEDICAID, SELFPAY ==
--- NOTE | 2020-10-01 14:47 | US_ITS ---
WS: [id number] ULTRASOUND SOFT TISSUES LEFT upper extremity. HISTORY: EVALUATION OF SUBCUTANEOUS NODULE COMPARISON: None available. TECHNIQUE: 2-D and color Doppler imaging is submitted. In the area of interest there are a few cystic like nodules with no through-transmission. There is sh adowing from the posterior wall. The largest measures 3 x 3 x 4 mm. There is no increased vascularity . No soft tissue component. US/US soft tissue/extremity [id number] IMPRESSION: Mildly complex cystic masses in the LEFT upper extremity correspond to the palp able abnormality. Favor these are probably sebaceous cysts or cysts with calcif ications in the wall. No solid component.
== END 2020-10-01 14:45 | disposition home or self-care (01) ==
PROVIDERS: PCP Nurse Practitioner Family; Visit Provider Internal Medicine Medical Oncology
DX: R22.32 Localized swelling, mass and lump, left upper limb (principal)
CPT/HCPCS: 76882

== ENCOUNTER → 2020-10-09 16:33 | Outpatient (BNVA) | payer MEDICAID, SELFPAY | PROVIDERS: PCP Nurse Practitioner Family; Visit Provider Nurse Practitioner Family | DX: Z20.828 Contact with and (suspected) exposure to other viral communicable diseases (principal); J11.1 Influenza due to unidentified influenza virus with other respiratory manifestations | CPT/HCPCS: 87635 ==

== ENCOUNTER 2020-10-26 11:46 | Outpatient (CLI) | payer MEDICAID, SELFPAY ==
[2020-10-26 12:31] LABS: INR 1.78 (0.8-1.2)
== END 2020-10-26 11:47 | disposition home or self-care (01) ==
LOC: ONCMED 11:47
PROVIDERS: PCP Nurse Practitioner Family; Visit Provider Internal Medicine Medical Oncology
DX: D50.9 Iron deficiency anemia, unspecified (principal); I82.502 Chronic embolism and thrombosis of unspecified deep veins of left lower extremity; Z79.01 Long term (current) use of anticoagulants; E04.2 Nontoxic multinodular goiter; G43.719 Chronic migraine without aura, intractable, without status migrainosus; K86.1 Other chronic pancreatitis; M15.0 Primary generalized (osteo)arthritis
CPT/HCPCS: 36415; 85610

== ENCOUNTER → 2020-11-06 11:27 | Outpatient (BNVA) | payer MEDICAID, SELFPAY | PROVIDERS: PCP Nurse Practitioner Family; Visit Provider Internal Medicine | DX: Z20.822 Contact with and (suspected) exposure to COVID-19 (principal); Z01.812 Encounter for preprocedural laboratory examination | CPT/HCPCS: 87635 ==

== ENCOUNTER 2020-11-12 15:47 | Inpatient (IN) | payer MEDICAID, SELFPAY ==
[2020-11-12] VITALS (8 sets, daily range): BP systolic 99–152; BP diastolic 61–86; PULSE 80–99; RESP 16–20; TEMP 36.1–36.8; O2SAT 91–98
--- NOTE | 2020-11-12 09:03 | P.HP_ITS ---
Same Day Surgery H&P Indication for Procedure/HPI DATE OF PROCEDURE: November 12, 2020 CHIEF COMPLAINT/INDICATIONFOR SURGICAL PROCEDURE: Prominent family history of colon cancer PREOP DIAGNOSIS: fh PLANNED PROCEDRUE: Operation Date: 11/12/20 09:30 Proposed Procedures p Colonoscopy 25680 z80.0(Not Applicable) - Matthew Dick MD Medications/Allergies* Home Medications Medication Instructions Recorded Confirmed Type Vitamin Plus Low Iron 1 tab PO DAILY 03/24/20 11/08/20 History albuterol sulfate [ProAir HFA] 2 puff INHALATION Q4H PRN 03/24/20 11/08/20 History clonazepam 1 mg PO TID PRN 03/24/20 11/08/20 History fluoxetine 60 mg PO DAILY 03/24/20 11/08/20 History fluticasone propionate 2 spray INTRANASAL DAILY PRN 03/24/20 11/08/20 History hydrocodone-acetaminophen 1 tab PO QID PRN 03/24/20 11/08/20 History ibuprofen 600 mg PO TID PRN 03/24/20 11/08/20 History warfarin 10 mg PO DAILY 03/24/20 11/08/20 History Acidophilus 1 cap PO BID 07/10/20 11/08/20 History acetaminophen [Tylenol Extra 1,000 mg PO PRN 08/10/20 11/08/20 History Strength] pseudoephedrine HCl [Sudogest] See Rx Instructions .ROUTE .COMPLEX 08/10/20 11/08/20 History magnesium oxide 500 mg tablet 1,000 mg PO .at bedtime tab 11/06/20 11/08/20 History sennosides 8.6 mg tablet 17.2 mg PO .at bedtime tab 11/06/20 11/08/20 History Allergies/Adverse Reactions Allergy/AdvReac Type Severity Reaction Status Date / Time prochlorperazine Allergy ADR-Anxiety Verified 11/06/20 10:34 [From Compazine] Pertinent History/Comorbid Conditions* Medical History (Updated 11/06/20 @ 11:02 by Matthew Dick MD) DVT (deep venous thrombosis) Surgical History (Updated 04/17/20 @ 13:13 by Erica Lainez MD) History of appendectomy History of hip surgery History of hysterectomy Family History (Updated 04/17/20 @ 13:03 by Dahiana John, RN) CAD (coronary artery disease) Myocardial infarction Denies family history of Diabetes Social History Smoking and tobacco status: current every day smoker cigarettes Packs smoked per day: 0.5 Alcohol intake: never Lives independently: Yes History of recent travel: No Pertinent Exam Findings alert, oriented x 3, clear to auscultation bilaterally, regular rate & rhythm, operative site marked and procedure specific exam findings Recommendations Surgery/Procedure today Coding Level of Care Code Acute Health Communications Specialist for Sadie Yepez
[2020-11-12] MEDS: sodium chloride 0.9% 1,000 ML 30 ML IV (09:08)
--- NOTE | 2020-11-12 09:12 | ANES.PREANE2 ---
Pre-Anesthetic Assessment Pre-Anesthetic Assessment: Height/Weight: Height 1.65 m Weight 86.183 kg Temp Pulse Resp BP Pulse Ox 96.9 F L 99 20 H 112/86 98 11/12/20 08:50 11/12/20 08:50 11/12/20 08:50 11/12/20 08:50 11/12/20 08:50 Preop Diagnosis: fh Proposed Procedure: Operation Date: 11/12/20 09:30 Proposed Procedures p Colonoscopy 07022 z80.0(Not Applicable) - Matthew Dick MD Was Beta Betzy taken within 24 hours: N/A Last intake: Intake Last Liquid Date 11/11/20 Last Liquid Time 23:00 Last Solid Date 11/10/20 Last Solid Time 16:00 Social: Social History: Tobacco and No alcohol Packs per day: 1 Exam: Pre-Anes Outpt Exam: alert, oriented x 3, clear to auscultation bilaterally and regular rate & rhythm Airway: Submandibular: WNL Cervical ROM: WNL MP: 2 Dentition: False History/ROS: No significant history except as noted and No significant complaints Pulmonary: Pulmonary: Cough CV/HEM: CV/HEM: DVT : : None reported Hepatic: Hepatic: None reported GI: Comments: constipation Metabolic: Metabolic: None reported Musc/skel: Musc/skel: None reported Neuropsych: Neuropsych: None reported Anesthetic Plan: ASA status: 2 Anesthesia: MAC Risk of > 500 ml blood loss (7ml/kg in children): No Meds/Allergies Current Medications: Current Medications Generic Name Dose Route Start Last Admin Trade Name Freq PRN Reason Stop Dose Admin Sodium Chloride 1,000 mls @ 30 ml s/hr 11/12/20 08:45 11/12/20 09:08 Sodium Chloride 0.9% IV 30 mls/hr .Q24H LUIS Administration PFSH Anesthesia PFSH: Medical History (Updated 11/06/20 @ 11:02 by Matthew Dick MD) DVT (deep venous thrombosis) Surgical History History of appendectomy History of hip surgery History of hysterectomy Family History Other CAD (coronary artery disease) Myocardial infarction Denies family history of Diabetes Social History Smoking and tobacco status: current every day smoker cigarettes Packs smoked per day: 0.5 Alcohol intake: never Lives independently: Yes History of recent travel: No Data Anesthesia Cardiac Studies: No Data to Display
--- NOTE | 2020-11-12 10:35 | XRR_ITS ---
PROCEDURE INFORMATION: Exam: XR Abdomen Exam date and time: 11/12/2020 10:42 AM Age: 60 years old Clinical indication: Abdominal pain; Generalized; Additional info: Severe abdominal pain post colonoscopy TECHNIQUE: Imaging protocol: XR of the abdomen. Views: Frontal supine view of the abdomen. 1 View. COMPARISON: CT angio abdomen pelvis [id number] 07/12/2020 5:09 PM FINDINGS: Lungs: Left basilar atelectasis noted. Gastrointestinal tract: There is air under the right hemidiaphragm, concerning for bowel perforation. Bowel interposition can have this appearance. Air is seen within bowel under the left hemidiaphragm. Bones/joints: Mild S-shaped curvature of the spine and degenerative changes seen. XR/XR abdomen 1V* [id number] IMPRESSION: Imaging findings concerning for pneumoperitoneum. Further evaluation with abdomen CT is recommended.
--- NOTE | 2020-11-12 11:54 | P.HP_ITS ---
Providers/Chief Complaint Admitting Physician: Mohinder Cleveland Primary Care Provider: SEBASTIÁN Gates Chief Complaint: colonoscopy History of Present Illness Jennifer Soto is a 60 year old female who underwent a colonoscopy with polypectomy by Dr. Dick today and subsequently developed severe abdominal pain. Subsequent KUB showed pneumoperitoneum. At present patient is h emodynamically stable has mild abdominal pain, no nausea or vomiting, passing flatus. She states that she has had multiple colonoscopies in the past where polyps were removed and 2 of her brothers had colon cancer. She states that when she woke up her pain was mainly in the right shoulder but that has now subsided and now her pain is localized to the left lower quadrant, worse with moving. Patient also has a longstanding history of constipation due to opioid use for chronic back issues Review of Systems General: Reports: 10 or more systems reviewed and unremarkable except in HPI and below Medications/Allergies Home Medications Medication Instructions Recorded Confirmed Last Taken Type Vitamin Plus Low Iron 1 tab PO DAILY 03/24/20 11/08/20 11/08/20 History albuterol sulfate [ProAir HFA] 2 puff INHALATION Q4H PRN 03/24/20 11/08/20 11/08/20 History clonazepam 1 mg PO TID PRN 03/24/20 11/08/20 11/08/20 History fluoxetine 60 mg PO DAILY 03/24/20 11/08/20 11/08/20 History fluticasone propionate 2 spray INTRANASAL DAILY PRN 03/24/20 11/08/20 11/08/20 History hydrocodone-acetaminophen 1 tab PO QID PRN 03/24/20 11/08/20 11/08/20 History ibuprofen 600 mg PO TID PRN 03/24/20 11/08/20 11/08/20 History warfarin 10 mg PO DAILY 03/24/20 11/08/20 11/07/20 History nitroglycerin 0.4 mg sublingual 0.4 mg SUBLINGUAL Q5M PRN #25 tab 04/17/20 11/08/20 Unknown Rx tablet Acidophilus 1 cap PO BID 07/10/20 11/08/20 11/08/20 History DME: Walker #1 ea 08/10/20 11/08/20 Unknown Rx acetaminophen [Tylenol Extra 1,000 mg PO PRN 08/10/20 11/08/20 11/08/20 History Strength] pseudoephedrine HCl [Sudogest] See Rx Instructions .ROUTE .COMPLEX 08/10/20 11/08/20 11/08/20 History magnesium oxide 500 mg tablet 1,000 mg PO .at bedtime tab 11/06/20 11/08/20 11/08/20 History sennosides 8.6 mg tablet 17.2 mg PO .at bedtime tab 11/06/20 11/08/20 11/08/20 History Allergies Allergy/AdvReac Type Severity Reaction Status Date / Time prochlorperazine Allergy ADR-Anxiety Verified 11/06/20 10:34 [From Compazine] PFSH Acute PFSH: Medical History DVT (deep venous thrombosis) Facet arthritis, degenerative, lumbar spine Surgical History History of appendectomy History of hip surgery History of hysterectomy Status post colonoscopy Family History Other CAD (coronary artery disease) Myocardial infarction Denies family history of Diabetes Social History Smoking and tobacco status: current every day smoker cigarettes Packs smoked per day: 0.5 Alcohol intake: never Lives independently: Yes History of recent travel: No Vitals/I&O/Wt Last Vital Signs Temp 97.6 F 11/12/20 10:05 Pulse 93 11/12/20 11:10 Resp 16 11/12/20 11:10 BP 125/73 11/12/20 11:10 Pulse Ox 95 11/12/20 11:10 11/11/20 11/12/20 11/12/20 22:59 06:59 14:59 Intake Total 800 / 800 Balance 800 / 800 Physical Exam Narrative: EXAM NARRATIVE: HEENT: Normocephalic Eye: Sclera /conjunctiva normal Respiratory and chest: Bilateral clear breath sounds on auscultation Cardiovascular: Normal S1 and S2 heart sounds Abdomen: Soft to palpation, mildly tender left lower quadrant, no guarding or rigidity Neurological: Oriented to place person and time Skin: Intact, no lesions appreciated on gross exam A&P Assessment and plan (1) Status post therapeutic pneumoperitoneum: 60-year-old female status post colonoscopy with polypectomy with subsequent postprocedure pneumoperitoneum. The pneumoperitoneum could be secondary to perforated diverticuli or at the site of polypectomy. She is currently hemodynamically stable with no evidence of peritonitis. N.p.o. except ice chips IV fluids 100 cc/h CBC, BMP now and to be repeated in the morning Abdominal series in the morning Resume home medications Discontinue all opioids use Tylenol for pain control 21 mg nicotine patch Vital signs every 2 hours Lovenox 90 mg subcutaneous twice daily given her history of DVT, Coumadin withheld IV Zosyn 3.375 g every 8 hours Discussed with the patient that she will need to be admitted for observation and treated with IV Zosyn. If she develops peritonitis, hemodynamic instability or becomes febrile then she will need a diagnostic laparoscopy with repair of bowel perforation Status: Acute Attestations Medical Necessity Statement*: Pneumoperitoneum status post colonoscopy requiring 2 nights of inpatient stay for observation Coding Level of Care Code Acute Manufacturing Automation Engineer for Sadie Yepez Diagnoses Status post therapeutic pneumoperitoneum Z98.890
[2020-11-12] MEDS: piperacillin-tazobactam 3.375 GM in sodium chloride 0.9% (plus) 50 ML IV (12:03)
[2020-11-12] MEDS: nicotine 21 mg Patch 1 PATCH TRANSDERMA (12:06)
--- NOTE | 2020-11-12 13:36 | PC.NURSE ---
Pt was experiencing a lot of pain post-procedure. Verbalized pain in the abdomen and right upper shoulder. Unable to pass gas. Nurse assessed and palpated abdomen. Abdomen was soft and pt did not experience additional pain while palpating. Nurse notified Dr. Dick. Dr. Dick ordered KUB upright. Patient stated feeling much better and was able to pass gas while waiting for KUB to be read. Upon reading KUB, Dr. Dick requested patient bed. Nurse had patient change back into hospital gown and started another IV. Hung IV Zosyn per Dr. Dick.
[2020-11-12] MEDS: CLONazepam 1 mg Tablet PO ×2 (14:32→22:06)
[2020-11-12] MEDS: fluoxetine 20 mg Capsule 60 MG PO (14:32)
[2020-11-12] MEDS: acetaminophen 500 mg Tablet 1000 MG PO (14:34)
[2020-11-12] MEDS: D5-NS 0.45% + KCL 20 mEq 20 MEQ/1,000 ML BAG 100 MEQ IV (14:35)
--- NOTE | 2020-11-12 18:07 | ANE.PACU2 ---
Inpatient post-anesthesia follow up: Airway intact: Yes Vital signs: Temperature 97.0 F Pulse Rate 96 Respiratory Rate 20 Blood Pressure 152/77 Pulse Oximetry 91 Oxygen Delivery Me thod Room Air Oxygen Flow Rate 2 Fraction of Inspir ed Oxygen Hydration adequate: Yes Nausea and vomiting: No Pain level: 2 Mental status: Baseline Additional Comments: Admitted to med surg floor
[2020-11-12] MEDS: enoxaparin 80 mg/0.8 mL Syringe SUBCUT (18:30)
[2020-11-12] MEDS: magnesium oxide 400 mg tablet 1000 MG PO (21:04)
[2020-11-12] MEDS: sennosides 8.6 mg Tablet 17.2 MG PO (21:05)
[2020-11-12] MEDS: famotidine 20 mg/2 mL INJ IVP (22:01)
[2020-11-13] MEDS: D5-NS 0.45% + KCL 20 mEq 20 MEQ/1,000 ML BAG 100 MEQ IV (01:39)
[2020-11-13] MEDS: piperacillin-tazobactam 3.375 GM in sodium chloride 0.9% (plus) 50 ML IV ×2 (03:29→10:58)
[2020-11-13 04:00] VITALS: BP 111/73; PULSE 88; RESP 18; TEMP 36.4; O2SAT 95
--- NOTE | 2020-11-13 06:00 | XRR_ITS ---
PROCEDURE INFORMATION: Exam: XR Abdomen Exam date and time: 11/13/2020 6:09 AM Age: 60 years old Clinical indication: Condition or disease; Intestinal condition; Other: Perforated bowel; Other: Pain; Prior surgery; Surgery type: Hyst, appy TECHNIQUE: Imaging protocol: XR of the abdomen. Views: 2 Views. Upright and supine views. COMPARISON: CR XR abdomen 1V* [id number] 11/12/2020 10:42 AM FINDINGS: Gastrointestinal tract: The bowel gas pattern is nonspecific. Air filled large bowel including distal rectal gas. Air-filled bowel below the right hemidiaphragm. Air-filled bowel below the left hemidiaphragm. Scattered loops of air filled small bowel none of which are dilated. Intraperitoneal space: Normal. No free air. Bones/joints: Unremarkable for age. XR/XR abdomen min 2V [id number] IMPRESSION: 1. The bowel gas pattern is nonspecific. Air filled large bowel including distal rectal gas. 2. Air-filled bowel below the right hemidiaphragm. Air-filled bowel below the left hemidiaphragm. Pneumoperitoneum not inked totally excluded as was previously described. Consider CT. 3. Scattered loops of air filled small bowel none of which are dilated. Consider CT if indicated
[2020-11-13] MEDS: enoxaparin 80 mg/0.8 mL Syringe SUBCUT (06:06)
[2020-11-13 06:17] LABS: Basophils # 0.1 10^3/uL (0.0-0.1); Basophils % 1.3 %; Eosinophils # 0.2 10^3/uL (0.0-0.8); Eosinophils % 3.2 %; Hematocrit 38.5 % (37.0-47.0); Hemoglobin 11.8 g/dL (11.5-15.3); Lymphocytes # 2.7 10^3/uL (0.8-4.8); Lymphocytes % 47.3 %; Mean Corpuscular HGB Conc 30.6 g/dL (30.0-36.0); Mean Corpuscular Hemoglobin 30.4 pg (28.0-34.0); Mean Corpuscular Volume 99.2 fL (81-99); Mean Platelet Volume 10.7 fL (7.4-10.4); Monocytes # 0.4 10^3/uL (0.2-0.9); Monocytes % 7.5 %; Neutrophils # 2.27 10^3/uL (1.8-7.7); Neutrophils % 40.5 %; Nucleated Red Blood Cells % 0 %; Platelet Count 234 10^3/cmm (130-400); Red Blood Count 3.88 10^6/uL (4.1-5.3); White Blood Count 5.6 10^3/uL (4.0-10.0)
[2020-11-13 06:48] LABS: Anion Gap 12.6 (5-19); Blood Urea Nitrogen 6 mg/dL (8-23); Carbon Dioxide 24 mmol/L (22-29); Chloride 108 mmol/L (98-107); Glomerular Filtration Rate 101.3 mL/min (90-130); Glucose 97 mg/dL (65-115); Osmolality Calculated 288 mOsm/kg (285-295); Potassium 4.6 mmol/L (3.5-5.1); Sodium 140 mmol/L (136-145)
[2020-11-13 07:33] VITALS: PULSE 95; RESP 18; O2SAT 98
[2020-11-13 07:40] VITALS: BP 111/76; PULSE 86; RESP 17; TEMP 36.8; O2SAT 96
--- NOTE | 2020-11-13 09:09 | CT_ITS ---
WS: [id number] CT ABDOMEN AND PELVIS WITH CONTRAST HISTORY: r/o perforation TECHNIQUE: Imaging performed of the abdomen and pelvis with IV contrast. Single phase imaging of the abdomen. Coronal and sagittal reformats are submitted. All CT scans at [facility] use at least one of these dose optimization techniques: automated exposure control; mA and/or kV adjustment per patient size (includes targeted exams where dose is matched to clinical indication); or iterativ e reconstruction. IV CONTRAST: Omnipaque 300; 95 mL IV. Oral contrast: Yes. DLP: 1604.25 mGy.cm COMPARISON: 07/12/2020 Lower thorax: Lung bases are clear. Heart is normal size. No hiatal hernia. Liver/biliary system: Normal size liver. 1.7 cm low-attenuation nodule in the anterior LEFT lobe of t he liver was present in 2013. No bile duct dilatation. Gallbladder: Normal. No gallstones or wall thickening. No pericholecystic fluid. Pancreas: Mild fatty replacement. Spleen: Normal. Adrenal glands: Normal. Right kidney: Normal. Left kidney: Normal. Aorta: Mild atherosclerosis with no aneurysm. Calcifications extend into the common iliac arteries. Lymphadenopathy: None. Free fluid: None. GI tract: Increased amount of air throughout the colon. No free air is identified. Small portions of the distal colon are obscured by artifact from bilateral hip arthroplasties. Abdominal wall: Subcutaneous air noted within the anterior abdominal wall are probably injection site s. Pelvis: Soft tissues of the pelvis are significantly obscured by artifact from the prostheses. Bones: Advanced degenerative changes throughout the spine. Mild anterior wedging and Schmorl's node a t L3 to. CT/CT abdomen pelvis w con* [id number] IMPRESSION: 1. No evidence for free air or free fluid identified. 2. Moderate amount of increased air throughout the colon. 3. Atherosclerosis aorta.
--- NOTE | 2020-11-13 09:10 | P.PN_ITS ---
Subjective Subjective: Interval history: Patient had multiple loose bowel movements yesterday, still has mild left lower quadrant pain, no nausea or vomiting, afebrile, has been just on Tylenol for pain control Vitals/I&O/Wt Last Vital Signs Temp 98.3 F 11/13/20 07:40 Pulse 86 11/13/20 07:40 Resp 17 11/13/20 07:40 BP 111/76 11/13/20 07:40 Pulse Ox 96 11/13/20 07:40 11/12/20 11/13/20 11/13/20 22:59 06:59 14:59 Intake Total 50 / 1850 1000 / 1850 50 / 50 Output Total 200 / 200 Balance 50 / 1650 800 / 1650 50 / 50 Physical Exam Narrative: EXAM NARRATIVE: Abdomen: Soft, nondistended, minimally tender in the left lower quadrant, no guarding or rigidity Data : 11/13/20 05:49 11/13/20 05:49 A&P Assessment and plan (1) Status post therapeutic pneumoperitoneum: 60-year-old female with severe abdominal pain status post colonoscopy who is hemodynamically stable with minimal abdominal tenderness. X-ray initially showed concerning findings for pneumoperitoneum. Overnight patient has been stable, afebrile with minimal abdominal pain controlled with Tylenol. Will obtain a CT abdomen pelvis since the abdominal series today shows persistent air in the diaphragm which could be from colonic distention and the radiologist is uncertain about true pneumoperitoneum. She had multiple loose bowel movements today. Her white count is 5.6 Status: Acute Attestations Medical Necessity Statement*: Status post colonoscopy with severe abdominal pain with x-ray showing possible pneumoperitoneum, plan for CT abdomen pelvis today Coding Level of Care Code Acute Arboriculture Teacher for Chg Fwd Diagnoses Status post therapeutic pneumoperitoneum Z98.890
[2020-11-13] MEDS: iohexol 300 mg/mL 50 mL Btl PO (09:29)
--- NOTE | 2020-11-13 09:51 | PC.CHAP ---
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 [] Patient/Family/Request visit [] Outpatient visit [] Follow-up visit [] Physician referral [] Code/Alert [x] Routine visit [] Staff referral [] Actively dying [] Patient sleeping [] Family support [] [] Out of room [] Palliative care [] [] Receiving care in room [] Pre-surgical visit [] Trauma [] Long length of stay [] ICU visit [] Other: Relational/Emotional Strength [x] Patient feels connected with others/family/visitors/staff [] Distress [] Loneliness/isolation [] Abandonment Spirituality of Patient [x] Person of Rebecca [x] Attends Islam of their Rebecca [x] Believes in Prayer [] Reads Bible or Bahai materials [] There are Spiritual issues to be addressed 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 [x] Prayer [x] Active listening [x] Non-anxious presence [] Spiritual/emotional support [] Crisis/trauma care [] Spiritual counseling [] Bereavement support [] Provided bereavement packet [] Provided Bible/devotional materials [] Provided toy/stuffed animal, coloring book to patient or family member [] Provided Communion [] Anointing/[place] [] Salvation [] Completed spiritual assessment [] Other: Impact on Illness or Injury [] Angry [] Fearful [] Anxious [] Often cries [] Exhaustion [] Unable to work [] Unable to attend latter day [] Unable to walk/stand [] Unable to read [] Unable to drive [] Unable to eat/drink [] Unable to sleep [] Unable to be with family [] Patient intubated [] Other: Summary patient feeling better Time spent with patient 10 min
[2020-11-13] MEDS: fluoxetine 20 mg Capsule 60 MG PO (10:12)
[2020-11-13] MEDS: famotidine 20 mg/2 mL INJ IVP (10:12)
[2020-11-13 10:46] VITALS: BP 117/76; PULSE 79; RESP 17; TEMP 36.7; O2SAT 96
[2020-11-13] MEDS: nicotine 21 mg Patch 1 PATCH TRANSDERMA (10:58)
[2020-11-13] MEDS: iohexol 300 mg/mL 100 mL Btl IV (12:15)
[2020-11-13 15:04] VITALS: BP 128/71; PULSE 82; RESP 16; TEMP 36.2; O2SAT 97
[2020-11-13] MEDS: acetaminophen 500 mg Tablet 1000 MG PO (15:14)
--- NOTE | 2020-11-13 17:16 | PM.DCS ---
Discharge Providers Date of Admission: 11/12/20 15:47 Date of Discharge: November 13, 2020 Attending Provider at Admission: Matthew Dick MD Attending Provider at Discharge: Taiwo Cleveland MD Primary Care Provider: SEBASTIÁN Gates Diagnoses at Discharge Discharge Diagnosis (1) Status post therapeutic pneumoperitoneum: Status: Resolved Reason for Visit Reason for Visit: colonoscopy Hospital Course Hospital Course This is a 60-year-old female who underwent colonoscopy on 11/12/2020. Patient developed severe abdominal pain postprocedure and a subsequent x-ray showed suspected pneumoperitoneum. Patient is hemodynamically stable, no evidence of significant peritonitis but was tender in the left lower quadrant and right upper quadrant. Patient was admitted to the hospital for observation. The following morning the x-ray was repeated and there was concerns about the pneumoperitoneum and therefore CT abdomen pelvis was performed which showed dilated air-filled colon but no evidence of pneumoperitoneum. Patient was subsequently discharged home. During the course of her stay her vital signs are stable, she was ambulating and her pain was controlled with Tylenol. Discharge Data Data Completed and Pending: Completed Studies During Hospitalization Category Date Time Status CT abdomen pelvis w con* [id number] Rout ine Cat Scan 11/13/20 09:09 Completed XR abdomen 1V* [id number] Routine Exams 11/12/20 10:35 Completed XR abdomen min 2V [id number] Routine Exams 11/13/20 06:00 Completed Pathology: Surgic al [PTH] Routine Pth 11/12/20 10:06 Completed Pending at discharge Category Date Time Status Basic Metabolic P buck AM LABS Lab 11/14/20 04:00 Ordered Basic Metabolic P buck AM LABS Lab 11/15/20 04:00 Ordered Complete Blood Co unt w/Auto AM LABS Lab 11/14/20 04:00 Ordered Complete Blood Co unt w/Auto AM LABS Lab 11/15/20 04:00 Ordered Labs from last 24 hours 11/13/20 11/13/20 05:49 05:49 WBC 5.6 RBC 3.88 L Hgb 11.8 Hct 38.5 MCV 99.2 H MCH 30.4 MCHC 30.6 RDW 15.0 Plt Count 234 MPV 10.7 H Neut % (Auto) 40.5 Lymph % (Auto) 47.3 [place] % (Auto) 7.5 Eos % (Auto) 3.2 Baso % (Auto) 1.3 Neut # (Auto) 2.27 Lymph # (Auto) 2.7 [place] # (Auto) 0.4 Eos # (Auto) 0.2 Baso # (Auto) 0.1 Nucleated RBC % (a uto) 0 Nucleated RBCs # 0.0 Sodium 140 Potassium 4.6 Chloride 108 H Carbon Dioxide 24 Anion Gap 12.6 BUN 6 L Creatinine 0.6 GFR Calculation 101.3 Glucose 97 Calculated Osmolal ity 288 Calcium 9.0 Vitals: Last Vital Signs Temp 97.1 F L 11/13/20 15:04 Pulse 82 11/13/20 15:04 Resp 16 11/13/20 15:04 BP 128/71 11/13/20 15:04 Pulse Ox 97 11/13/20 15:04 Discharge Plan Discharge Patient Disposition: Home Condition: Stable Prescriptions: New Flagyl 500 mg tablet 500 mg PO Q8H 5 Days Qty: 15 RF: 0 levofloxacin 750 mg tablet 750 mg PO DAILY 5 Days RF: 0 Continued nitroglycerin 0.4 mg tablet, sublingual 0.4 mg SUBLINGUAL Q5M PRN (Reason: chest pain) Qty: 25 RF: 2 sennosides [Natural Senna Laxative] 8.6 mg tablet 17.2 mg PO .at bedtime RF: 0 magnesium oxide [Carlin] 500 mg tablet 1,000 mg PO .at bedtime RF: 0 warfarin 10 mg tablet 10 mg PO DAILY RF: 0 clonazepam 1 mg tablet 1 mg PO TID PRN (Reason: Anxiety) RF: 0 hydrocodone-acetaminophen 10-325 mg tablet 1 tab PO QID PRN (Reason: Pain) RF: 0 ibuprofen 600 mg tablet 600 mg PO TID PRN (Reason: Pain) RF: 0 albuterol sulfate [ProAir HFA] 90 mcg/actuation HFA aerosol inhaler 2 puff inhalation Q4H PRN (Reason: Shortness Of Breath) RF: 0 fluoxetine 20 mg capsule 60 mg PO DAILY RF: 0 fluticasone propionate 50 mcg/actuation spray,suspension 2 spray INTRANASAL DAILY PRN (Reason: Allergy Symptoms) RF: 0 Vitamin Plus Low Iron 27 mg iron- 1 mg tablet 1 tab PO DAILY RF: 0 Acidophilus 1 cap PO BID RF: 0 acetaminophen [Tylenol Extra Strength] 500 mg Tablet 1,000 mg PO PRN RF: 0 pseudoephedrine HCl [Sudogest] 30 mg tablet See Rx Instructions .ROUTE .COMPLEX RF: 0 (DME) DME: [facility] 1 ea .Route DAILY Qty: 1 RF: 0 Discharge Orders: Discharge Order (Routine); Ordered 11/13/20 Ordered By: Taiwo Cleveland Discharge Diet: Advance as tolerated Discharge Activity: Resume usual activity Patient Instructions: Metronidazole (By mouth), Levofloxacin (By mouth), GI Discharge Instructions Activity Restrictions/Additional Instructions: Follow up with your primary care physician as needed. Repeat colonoscopy in 5 years. 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
== END 2020-11-13 18:00 | disposition home or self-care (01) | DRG 920 ==
LOC: MEDSURG 19:34
PROVIDERS: Admitting Provider Internal Medicine; PCP Nurse Practitioner Family; Visit Provider Surgery
PROC: 0DJD8ZZ Inspection of Lower Intestinal Tract, Via Natural or Artificial Opening Endoscopic (ICD-10-PCS; CPT 45378; principal; 2020-11-12 09:30)
DX: T81.89XA Other complications of procedures, not elsewhere classified, initial encounter (principal); K51.40 Inflammatory polyps of colon without complications; Y84.8 Other medical procedures as the cause of abnormal reaction of the patient, or of later complication, without mention of misadventure at the time of the procedure; Y92.238 Other place in hospital as the place of occurrence of the external cause; K66.8 Other specified disorders of peritoneum; K57.30 Diverticulosis of large intestine without perforation or abscess without bleeding; M25.511 Pain in right shoulder; K59.03 Drug induced constipation; T40.2X5S Adverse effect of other opioids, sequela; F17.210 Nicotine dependence, cigarettes, uncomplicated; Z79.891 Long term (current) use of opiate analgesic; Z79.1 Long term (current) use of non-steroidal anti-inflammatories (NSAID); Z79.01 Long term (current) use of anticoagulants; Z86.010 Personal history of colon polyps; Z86.718 Personal history of other venous thrombosis and embolism; Z80.0 Family history of malignant neoplasm of digestive organs
CPT/HCPCS: 36415; 45385; 74018; 74019; 74177; 80048; 85025; 88305; 96372; J1650; J2405; J2543; J2704; J3490; J7030; Q9967

== ENCOUNTER 2020-12-18 11:30 | Outpatient (CLI) | payer MEDICAID, SELFPAY ==
[2020-12-18 12:13] LABS: Basophils # 0.1 10^3/uL (0.0-0.1); Eosinophils # 0.1 10^3/uL (0.0-0.8); Eosinophils % 1.5 %; Hematocrit 37.8 % (37.0-47.0); Hemoglobin 11.9 g/dL (11.5-15.3); Lymphocytes # 3.2 10^3/uL (0.8-4.8); Lymphocytes % 41.1 %; Mean Corpuscular HGB Conc 31.5 g/dL (30.0-36.0); Mean Corpuscular Hemoglobin 30.2 pg (28.0-34.0); Mean Corpuscular Volume 95.9 fL (81-99); Mean Platelet Volume 10.3 fL (7.4-10.4); Monocytes # 0.6 10^3/uL (0.2-0.9); Monocytes % 7.6 %; Neutrophils # 3.79 10^3/uL (1.8-7.7); Neutrophils % 48.5 %; Nucleated Red Blood Cells % 0 %; Platelet Count 286 10^3/cmm (130-400); Red Blood Count 3.94 10^6/uL (4.1-5.3); Red Cell Distribution Width 15.5 % (12.1-15.1); White Blood Count 7.8 10^3/uL (4.0-10.0)
[2020-12-18 12:29] LABS: INR 2.16 (0.8-1.2)
[2020-12-18 12:40] LABS: Alanine Aminotransferase 8 U/L (0-33); Alkaline Phosphatase 78 IU/L (35-105); Anion Gap 14.4 (5-19); Aspartate Amino Transferase 16 U/L (0-32); Blood Urea Nitrogen 13 mg/dL (8-23); Calcium 9.6 mg/dL (8.5-10.5); Carbon Dioxide 26 mmol/L (22-29); Chloride 102 mmol/L (98-107); Globulin 2.9 g/dL (1.3-4.6); Glomerular Filtration Rate 101.3 mL/min (90-130); Glucose 92 mg/dL (65-115); Iron 43 ug/dL (37-145); Osmolality Calculated 286 mOsm/kg (285-295); Percent Saturation 19.1 % (20-50); Potassium 4.4 mmol/L (3.5-5.1); Sodium 138 mmol/L (136-145); Total Bilirubin 0.2 mg/dL (0.15-1.2); Total Iron Binding Capacity 224 mcg/dl; Total Protein 6.9 g/dL (6.6-8.7); Unsaturated Iron Binding 181 ug/dL (112-347)
--- NOTE | 2020-12-22 11:18 | ONC FU_ITS ---
Dr. Humphrey Patient Follow-Up Note Patient: Jennifer Soto Unit #: [id number]: 1960 Dicatated By: Tulio Humphrey M.D.Date of Visit:Dec 18, 2020 Onc Med Follow-up/Prog Note Chief Complaint: Recurrent thromboembolism. History of Present Illness: This is a 60 year-old woman who with recurrent episodes of deep vein thrombosis. Thus far the episodes have been limited to the left leg. 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 She has not had any documented underlying hypercoagulability. However, she has remained chronically anticoagulated with warfarin. Her other medical illnesses include degenerative arthritis and fibromyalgia with chronic pain, multinodular goiter, and recurrent pancreatitis. She has seen Dr. Liu for management of chronic intractable migraine headache. She also has chronic anxiety/depression. She underwent left total hip arthroplasty in October 2012, and she underwent right total hip arthroplasty in February 2016. She has a long history of smoking, currently in the range of 1/2 pack of cigarettes daily. In March 2018 she was found to be mildly anemic. Her laboratory studies were consistent with iron deficiency. She was not able to tolerate an oral iron supplement. In April 2018 she was given a single infusion of Injectafer. She had a good clinical response. As of her follow-up visit in May 2020 she was slightly anemic again with hemoglobin 11.4 g. Subsequent to that visit, she required treatment for an abscess under the left kneecap which developed following a traumatic injury. It gradually resolved on antibiotic coverage with Bactrim. She will then had suspected perforation following a colonoscopy procedure on 11/12/2020. The perforation was not able to be confirmed by CT scan. However, she was given empiric antibiotic coverage with Levaquin and metronidazole. She is seen for a followup visit. She indicates that in October she had tested positive for COVID-19 virus infection. She continues have very poor energy following that illness, and she also says that she has not yet gotten her smell sensation back. She has limited activity. ECOG score is 2. She does not have fever or night sweats. She does have some sinus congestion. She has not had sore throat or difficulty swallowing. She has no shortness of breath, cough, or chest pain. She was having abdominal bloating and other GI symptoms with the antibiotic, but that is better now. Bowel function also is better now. She has no complaints. She has chronic pain, which has been managed with hydrocodone/APAP. She does not complain of headache. She sometimes has dizziness. She has no numbness/paresthesia or other focal neurologic symptoms. She does have ongoing issues with anxiety and depression. She has a lot of stress factors. Medications: 9Pantoprazole Sodium 1 Tablet (of 40 mg) Tablet, enteric coated Oral daily PRN, Cholecalciferol 1 Capsule ([place] 36834 Units) Oral q 7 days, ClonazePAM 1 (1 mg) Tablet Oral t.i.d., EQ Mucus ER 1 Tablet (of 600 mg) Tablet SR 12 HR Oral b.i.d. PRN, Flonase 2 spray(s) (of 50 mcg/act) Suspension Nasal daily, Hydrocodone-Acetaminophen 10-325 mg - Take 1 Tablet Oral four times a day PRN, Vitamins 1 Tablet Oral daily, PROzac 3 Capsule (of 20 mg) Oral daily, Sudafed 1 (30 mg) Tablet Oral daily PRN, Warfarin Sodium 1 (10 mg) Tablet Oral daily Allergies: compazine Vital Signs: Performed on Dec 18, 2020 13:34 Height - 65.00 in Weight - 187.4 lbs (LOW) BSA - 1.92 sq.m BMI - 31.19 (HIGH) Temperature - 97.9 F (LOW) Pulse - 95 /min Respiration - 18 /min BP - 132/84 mm(hg) O2 Sat - 96 % Pain - 7 Physical Examination: Constitutional - She does not appear acutely ill, Eyes - Sclerae nonicteric. Conjunctivae clear, ENMT - No lesions noted in the oral cavity, Hematologic/Lymphatic - No cervical, clavicular, or axillary adenopathy, Respiratory - Lungs are clear with some decrease in air movement bilaterally, Cardiovascular - Heart rhythm is regular. There is no murmur, gallop, or rub noted, Abdomen - Soft. Liver and spleen are not enlarged. There is no abdominal mass or ascites noted and there is no inguinal adenopathy, Extremities - There are venous stasis changes bilaterally. There is mild swelling of the left leg, which is chronic, Neurologic - There are no focal neurologic deficits noted. Lab/Imaging: Test performed on Dec 18, 2020 11:55 Iron 43 mcg/dL Sodium 138 mmol/L Iron Binding Capacity (TIBC) 224 mcg/dl Potassium 4.4 mmol/L % Iron Saturation 19.1 % Chloride 102 mmol/L CO2 26 mmol/L UIBC 181 mcg/dL Anion Gap 14.4 BUN 13 mg/dL Creatinine 0.6 mg/dL Cr Clearance (Est) 130.46 mL/min eGFR 101.3 mL/min Glucose 92 mg/dL Osmolality - Calculated 286 mOsm/kg Calcium 9.6 mg/dL Protein, Total 6.9 g/dL Albumin 4.0 g/dL Globulin 2.9 g/dL Bilirubin, Total 0.2 mg/dL ALT (SGPT) 8 U/L AST (SGOT) 16 U/L Alkaline Phosphatase 78 IU/L PT 24.90 SECONDS WBC 7.8 10 3/uL INR 2.16 RBC 3.94 10 6/uL HGB 11.9 g/dL HCT 37.8 % MCV 95.9 fL MCH 30.2 pg MCHC 31.5 g/dL RDW 15.5 % Platelet Count 286 10 3/cmm MPV 10.3 fL Neutrophils 3.79 10 3/uL Lymphocytes 3.2 10 3/uL Monocytes 0.6 10 3/uL Eosinophils 0.1 10 3/uL Basophils 0.1 10 3/uL Neutrophil % 48.5 % Lymphocyte % 41.1 % Monocyte % 7.6 % Eosinophil % 1.5 % Basophils % 1.0 % NRBC % 0 % Problem List: 1. 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 She has no documented hypercoagulability. She has had no evidence of new thrombosis while on therapeutic anticoagulation with warfarin. 2. Iron deficiency anemia, requiring parenteral iron replacement in April 2018. 3. Degenerative arthritis with chronic musculoskeletal pain and fatigue. 4. Multinodular goiter. 5. Chronic migraine. 6. History of recurrent pancreatitis. 7. Chronic anxiety/depression. 8. Nicotine dependence. Problems Addressed with this Encounter and Plan: 1. Patient with recurrent episodes of deep vein thrombosis of the left leg with associated postphlebitic syndrome. She has recently been on antibiotic therapy for left knee abscess, but thus far there has been no documented acute thrombosis while on anticoagulation with warfarin. She will continue warfarin at the same dosage adjustment. Her pro times will be monitored monthly. She will be scheduled for a followup visit in 3 months. 2. She has had iron deficiency anemia, and she will continue on her oral iron supplement every other day. 3. She has chronic fatigue and musculoskeletal pain. Her pain generally has been managed adequately with hydrocodone/APAP. At this point I will have her try reducing the dosage to 7.5/325. Signed By: Tulio Humphrey M.D. <<Signature on File>>
== END 2020-12-18 11:31 | disposition home or self-care (01) ==
LOC: ONCMED 11:30
PROVIDERS: PCP Nurse Practitioner Family; Visit Provider Internal Medicine Medical Oncology
DX: I82.502 Chronic embolism and thrombosis of unspecified deep veins of left lower extremity (principal); D50.9 Iron deficiency anemia, unspecified; G89.4 Chronic pain syndrome; R53.82 Chronic fatigue, unspecified; E04.2 Nontoxic multinodular goiter; K86.1 Other chronic pancreatitis; F41.9 Anxiety disorder, unspecified; F32.9 Major depressive disorder, single episode, unspecified; Z79.01 Long term (current) use of anticoagulants; Z79.899 Other long term (current) drug therapy
CPT/HCPCS: 36415; 80053; 83540; 83550; 85025; 85610; 99214

== ENCOUNTER 2020-12-26 13:47 | Outpatient (CLI) | payer MEDICAID, SELFPAY ==
--- NOTE | 2020-12-26 14:00 | CT_ITS ---
WS: [id number] CT ABDOMEN PELVIS TECHNIQUE: Contrast-enhanced CT of the abdomen and pelvis with coronal and sagittal reformatted image s. CLINICAL INFORMATION: K57.90 - Diverticulosis of intestine, part unspecified, without perforation or abscess without bleeding COMPARISON: CT November 13, 2020 DLP: 1080.[address] scans at [facility] use at least one of these dose optimization techniques: automat ed exposure control; mA and/or kV adjustment per patient size (includes targeted exams where dose is matched to clinical indication); or iterative reconstruction. FINDINGS: Diffuse fatty infiltration of the liver. Stable 1.7 cm hepatic cyst or hemangioma. Normal gallbladder . Normal spleen. Normal GE junction. Lung bases are well aerated. Pancreatic fatty infiltration. Adre nal glands are normal. Normal renal parenchymal enhancement. No hydronephrosis. Normal spleen. No abd ominal lymphadenopathy. Normal caliber abdominal aorta. Aortic calcification. Sigmoid diverticulosis. No evidence of acute diverticulitis. No evidence of high-grade small or large bowel obstruction. No pelvic or inguinal lymphadenopathy. Postoperative changes bilateral TIFFANY. Lumba r curve convex left. Prior postoperative changes hysterectomy. CT/CT abdomen pelvis w con* [id number] IMPRESSION: 1. Sigmoid diverticulosis. No evidence of acute diverticulitis. 2. No evidence of small or large bowel obstruction. No free fluid in the pelvi s. 3. No adenopathy in the abdomen or pelvis. 4. Prior postoperative hysterectomy. 5. Stable right hepatic cyst or hemangioma. 6. No other significant findings.
[2020-12-26] MEDS: iohexol 300 mg/mL 50 mL Btl PO (14:08)
[2020-12-26] MEDS: iohexol 300 mg/mL 100 mL Btl IV (14:08)
== END 2020-12-26 13:48 | disposition home or self-care (01) ==
LOC: RADWPI 13:50
PROVIDERS: PCP Nurse Practitioner Family; Visit Provider Surgery
DX: K57.90 Diverticulosis of intestine, part unspecified, without perforation or abscess without bleeding (principal)
CPT/HCPCS: 74177; Q9967

== ENCOUNTER 2021-03-11 12:45 | Outpatient (CLI) | payer MEDICAID, SELFPAY ==
[2021-03-11 13:15] LABS: Basophils # 0.1 10^3/uL (0.0-0.1); Basophils % 0.8 %; Eosinophils # 0.1 10^3/uL (0.0-0.8); Eosinophils % 1.3 %; Hematocrit 38.9 % (37.0-47.0); Hemoglobin 12.2 g/dL (11.5-15.3); Lymphocytes % 35.9 %; Mean Corpuscular HGB Conc 31.4 g/dL (30.0-36.0); Mean Corpuscular Hemoglobin 30.7 pg (28.0-34.0); Mean Platelet Volume 10.2 fL (7.4-10.4); Monocytes # 0.6 10^3/uL (0.2-0.9); Monocytes % 6.9 %; Neutrophils # 4.65 10^3/uL (1.8-7.7); Nucleated Red Blood Cells % 0 %; Platelet Count 265 10^3/cmm (130-400); Red Blood Count 3.97 10^6/uL (4.1-5.3); White Blood Count 8.5 10^3/uL (4.0-10.0)
[2021-03-11 13:26] LABS: INR 2.18 (0.8-1.2)
[2021-03-11 13:33] LABS: Alanine Aminotransferase 9 U/L (0-33); Albumin Level 3.9 g/dL (3.5-5.2); Alkaline Phosphatase 83 IU/L (35-105); Aspartate Amino Transferase 15 U/L (0-32); Blood Urea Nitrogen 7 mg/dL (8-23); Calcium 8.6 mg/dL (8.5-10.5); Carbon Dioxide 26 mmol/L (22-29); Chloride 101 mmol/L (98-107); Globulin 2.6 g/dL (1.3-4.6); Glomerular Filtration Rate 101.3 mL/min (90-130); Glucose 97 mg/dL (65-115); Osmolality Calculated 280 mOsm/kg (285-295); Sodium 136 mmol/L (136-145); Total Bilirubin 0.2 mg/dL (0.15-1.2); Total Protein 6.5 g/dL (6.6-8.7)
== END 2021-03-11 12:46 | disposition home or self-care (01) ==
LOC: ONCMED 12:47
PROVIDERS: PCP Nurse Practitioner Family; Visit Provider Internal Medicine Medical Oncology
DX: I74.9 Embolism and thrombosis of unspecified artery (principal); Z79.01 Long term (current) use of anticoagulants
CPT/HCPCS: 36415; 80053; 85025; 85610

== ENCOUNTER 2021-03-14 05:51 | Outpatient (CLI) | payer MEDICAID, SELFPAY ==
--- NOTE | 2021-03-14 16:50 | ONC FU_ITS ---
Dr. Humphrey Patient Follow-Up Note Patient: Jennifer Soto Unit #: [id number]: 1960 Dicatated By: Tulio Humphrey M.D.Date of Visit:Mar 14, 2021 Onc Med Follow-up/Prog Note Chief Complaint: Recurrent thromboembolism. History of Present Illness: This is a 60 year-old woman who with recurrent episodes of deep vein thrombosis. Thus far the episodes have been limited to the left leg. 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 She has not had any documented underlying hypercoagulability. However, she has remained chronically anticoagulated with warfarin. Her other medical illnesses include degenerative arthritis and fibromyalgia with chronic pain, multinodular goiter, and recurrent pancreatitis. She has seen Dr. Liu for management of chronic intractable migraine headache. She also has chronic anxiety/depression. She underwent left total hip arthroplasty in October 2012, and she underwent right total hip arthroplasty in February 2016. She has a long history of smoking, currently in the range of 1/2 pack of cigarettes daily. In March 2018 she was found to be mildly anemic. Her laboratory studies were consistent with iron deficiency. She was not able to tolerate an oral iron supplement. In April 2018 she was given a single infusion of Injectafer. She had a good clinical response. As of her follow-up visit in May 2020 she was slightly anemic again with hemoglobin 11.4 g. Subsequent to that visit, she required treatment for an abscess under the left kneecap which developed following a traumatic injury. It gradually resolved on antibiotic coverage with Bactrim. She then had suspected perforation following a colonoscopy procedure on 11/12/2020. The perforation was not able to be confirmed by CT scan. However, she was given empiric antibiotic coverage with Levaquin and metronidazole. She is seen for a followup visit. She has been feeling about the same. She does have a lot of stress, recently due to the fact that her brother has bladder cancer and she has been having good down to [place] to assist him. She complains that she has no energy. She is able to do light work. ECOG score is 1. Her appetite is been okay. She has no fever or night sweats. She does not complain of cough and she says her breathing is fine. She is smoking 1/2 pack of cigarettes daily. She does not complain of chest pain. She does complain that she does not have regular bowel movements. They are mostly loose on a combination of a Carlin stool softener and Metamucil. She has frequent urination. She has chronic pain in her back and hips, left worse than right. She has been able to cut back on her pain medication to 3 times a day. She does not complain of headache. She sometimes has dizziness. She has no focal neurologic symptoms. Medications: 9Pantoprazole Sodium 1 Tablet (of 40 mg) Tablet, enteric coated Oral daily PRN, Cholecalciferol 1 [place]apsule ([place] 35015 Units) Oral q 7 days, ClonazePAM 1 (1 mg) Tablet Oral t.i.d., EQ Mucus ER 1 Tablet (of 600 mg) Tablet SR 12 HR Oral b.i.d. PRN, Flonase 2 spray(s) (of 50 mcg/act) Suspension Nasal daily, Hydrocodone-Acetaminophen 10-325 mg - Take 1 Tablet Oral four times a day PRN, Vitamins 1 Tablet Oral daily, PROzac 3 Capsule (of 20 mg) Oral daily, Sudafed 1 (30 mg) Tablet Oral daily PRN, Warfarin Sodium 1 (10 mg) Tablet Oral daily Allergies: compazine Vital Signs: Performed on Mar 14, 2021 09:33 Height - 65.00 in Weight - 178.6 lbs (LOW) BSA - 1.89 sq.m BMI - 29.72 Temperature - 97.5 F (LOW) Pulse - 81 /min Respiration - 18 /min BP - 118/75 mm(hg) O2 Sat - 96 % Pain - 5 Fatigue - 7 Physical Examination: Constitutional - She looks pretty good generally, Eyes - Sclerae nonicteric. Conjunctivae clear, ENMT - No lesions noted in the oral cavity, Hematologic/Lymphatic - No cervical, clavicular, or axillary adenopathy, Respiratory - Lungs are clear with some decrease in air movement bilaterally, Cardiovascular - Heart rhythm is regular. There is no murmur, gallop, or rub noted, Abdomen - Soft. Liver and spleen are not enlarged. There is no abdominal mass or ascites noted and there is no inguinal adenopathy, Extremities - There are venous stasis changes bilaterally. There is chronic swelling of the left leg. There is otherwise no edema, Neurologic - There are no focal neurologic deficits noted. Lab/Imaging: CBC shows hemoglobin 12.2 g, white blood cell count 8500, and platelet count 265,000. Comprehensive metabolic profile is unremarkable. Her INR today is adequate at 2.18. Problem List: 1. 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 She has no documented hypercoagulability. She has had no evidence of new thrombosis while on therapeutic anticoagulation with warfarin. 2. Iron deficiency anemia, requiring parenteral iron replacement in April 2018. 3. Degenerative arthritis with chronic musculoskeletal pain and fatigue. 4. Multinodular goiter. 5. Chronic migraine. 6. History of recurrent pancreatitis. 7. Chronic anxiety/depression. 8. Nicotine dependence. Problems Addressed with this Encounter and Plan: 1. Patient with recurrent episodes of deep vein thrombosis of the left leg with associated postphlebitic syndrome. During followup there has been no documented acute thrombosis while on anticoagulation with warfarin. She will continue warfarin at the same dosage. Her pro times will be monitored monthly. She will be scheduled for a followup visit in 3 months. 2. She has chronic fatigue and musculoskeletal pain. Her pain generally has been managed adequately with hydrocodone/APAP. It is being continued at the same dosage. Signed By: Tulio Humphrey M.D. <<Signature on File>>
== END 2021-03-14 05:52 | disposition home or self-care (01) ==
LOC: ONCMED 05:53
PROVIDERS: PCP Nurse Practitioner Family; Visit Provider Internal Medicine Medical Oncology
DX: I87.002 Postthrombotic syndrome without complications of left lower extremity (principal); Z86.718 Personal history of other venous thrombosis and embolism; D50.9 Iron deficiency anemia, unspecified; M19.90 Unspecified osteoarthritis, unspecified site; E04.2 Nontoxic multinodular goiter; G43.709 Chronic migraine without aura, not intractable, without status migrainosus; F41.9 Anxiety disorder, unspecified; F32.9 Major depressive disorder, single episode, unspecified; F17.200 Nicotine dependence, unspecified, uncomplicated; Z79.01 Long term (current) use of anticoagulants; Z79.899 Other long term (current) drug therapy
CPT/HCPCS: 99214

== ENCOUNTER 2021-04-19 10:15 | Outpatient (CLI) | payer MEDICAID, SELFPAY ==
[2021-04-19 11:22] LABS: INR 2.08 (0.8-1.2)
== END 2021-04-19 10:16 | disposition home or self-care (01) ==
LOC: ONCMED 10:17
PROVIDERS: PCP Nurse Practitioner Family; Visit Provider Internal Medicine Medical Oncology
DX: Z79.01 Long term (current) use of anticoagulants (principal)
CPT/HCPCS: 85610

== ENCOUNTER 2021-07-02 15:04 | Outpatient (CLI) | payer MEDICAID, SELFPAY ==
[2021-07-02 16:07] LABS: INR 2.37 (0.8-1.2)
--- NOTE | 2021-07-06 12:06 | ONC FU_ITS ---
Dr. Humphrey Patient Follow-Up Note Patient: Jennifer Soto Unit #: [id number]: 1960 Dicatated By: Tulio Humphrey M.D.Date of Visit:Jul 02, 2021 Onc Med Follow-up/Prog Note Chief Complaint: Recurrent thromboembolism. History of Present Illness: This is a 60 year-old woman who with recurrent episodes of deep vein thrombosis. Thus far the episodes have been limited to the left leg. 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 She has not had any documented underlying hypercoagulability. However, she has remained chronically anticoagulated with warfarin. Her other medical illnesses include degenerative arthritis and fibromyalgia with chronic pain, multinodular goiter, and recurrent pancreatitis. She has seen Dr. Liu for management of chronic intractable migraine headache. She also has chronic anxiety/depression. She underwent left total hip arthroplasty in October 2012, and she underwent right total hip arthroplasty in February 2016. She has a long history of smoking, currently in the range of 1/2 pack of cigarettes daily. In March 2018 she was found to be mildly anemic. Her laboratory studies were consistent with iron deficiency. She was not able to tolerate an oral iron supplement. In April 2018 she was given a single infusion of Injectafer. She had a good clinical response. As of her follow-up visit in May 2020 she was slightly anemic again with hemoglobin 11.4 g. Subsequent to that visit, she required treatment for an abscess under the left kneecap which developed following a traumatic injury. It gradually resolved on antibiotic coverage with Bactrim. She then had suspected perforation following a colonoscopy procedure on 11/12/2020. The perforation was not able to be confirmed by CT scan. However, she was given empiric antibiotic coverage with Levaquin and metronidazole. She had uneventful recovery and she then continued anticoagulation with warfarin. She is seen for a followup visit. Since her last visit her antidepressant has been transition from fluoxetine to bupropion, that does seem to be helping. She recently had a flareup of allergy related sinus symptoms, for which she was given a steroid shot yesterday. She has been feeling okay otherwise. She says her energy is about the same. She says she is pooped by evening. Her ECOG score is 1. She has good appetite. She has no fever, night sweats, or hot flashes. She has sore throat associated with her sinus drainage. She has not had much cough. She does have some shortness of breath, she has been trying to cut down on her smoking. She does not complain of chest pain. She recently had some diarrhea which lasted 7 or 8 days, but that has resolved now. She has no other GI or complaints. She has back pain and joint pain, which is chronic. It is managed adequately with medication. She does not complain of headache. She sometimes has dizziness. She has no numbness/paresthesia or other focal neurologic symptoms. Medications: 9Pantoprazole Sodium 1 Tablet (of 40 mg) Tablet, enteric coated Oral daily PRN, buPROPion HCl ER (XL) 1 Tablet (of 150 mg) Tablet SR 24 HR Oral daily, Cholecalciferol 1 Capsule (of 98585 Units) Oral q 7 days, ClonazePAM 1 (1 mg) Tablet Oral t.i.d., EQ Mucus ER 1 Tablet (of 600 mg) Tablet SR 12 HR Oral b.i.d. PRN, Flonase 2 spray(s) (of 50 mcg/act) Suspension Nasal daily, Hydrocodone-Acetaminophen 10-325 mg - Take 1 Tablet Oral four times a day PRN, Vitamins 1 Tablet Oral daily, Sudafed 1 (30 mg) Tablet Oral daily PRN, Warfarin Sodium 1 (10 mg) Tablet Oral daily Allergies: compazine Vital Signs: Performed on Jul 02, 2021 15:38 Height - 65.00 in Weight - 188 lbs (HIGH) BSA - 1.93 sq.m BMI - 31.29 (HIGH) Temperature - 97.4 F (LOW) Pulse - 96 /min Respiration - 18 /min BP - 124/77 mm(hg) O2 Sat - 97 % Pain - 5 Fatigue - 6 Physical Examination: Constitutional - She looks pretty good generally, Eyes - Sclerae nonicteric. Conjunctivae clear, ENMT - No lesions noted in the oral cavity, Hematologic/Lymphatic - No cervical, clavicular, or axillary adenopathy, Respiratory - Lungs are clear with some decrease in air movement bilaterally, Cardiovascular - Heart rhythm is regular. There is no murmur, gallop, or rub noted, Abdomen - Soft. Liver and spleen are not enlarged. There is no abdominal mass or ascites noted and there is no inguinal adenopathy, Extremities - There are venous stasis changes bilaterally. There is some chronic swelling of the left leg. There is otherwise no edema, Neurologic - No focal neurologic deficits noted. Lab/Imaging: Test performed on Jul 02, 2021 15:20 PT 26.40 SECONDS INR 2.37 Problem List: 1. 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 She has no documented hypercoagulability. She has had no evidence of new thrombosis while on therapeutic anticoagulation with warfarin. 2. Iron deficiency anemia, requiring parenteral iron replacement in April 2018. 3. Degenerative arthritis with chronic musculoskeletal pain and fatigue. 4. Multinodular goiter. 5. Chronic migraine. 6. History of recurrent pancreatitis. 7. Chronic anxiety/depression. 8. Nicotine dependence. Problems Addressed with this Encounter and Plan: 1. Patient with recurrent episodes of deep vein thrombosis of the left leg with associated postphlebitic syndrome. During followup there has been no documented acute thrombosis while on anticoagulation with warfarin. She will continue warfarin at the same dosage. Her pro times will be monitored monthly. She will be scheduled for a followup visit in 3 months. 2. She has chronic fatigue and musculoskeletal pain. Her pain generally has been managed adequately with hydrocodone/APAP. It will be continued at the same dosage. Signed By: Tulio Humphrey M.D. <<Signature on File>>
== END 2021-07-02 15:05 | disposition home or self-care (01) ==
LOC: ONCMED 15:06
PROVIDERS: PCP Nurse Practitioner Family; Visit Provider Internal Medicine Medical Oncology
DX: I82.592 Chronic embolism and thrombosis of other specified deep vein of left lower extremity (principal); Z79.01 Long term (current) use of anticoagulants
CPT/HCPCS: 36415; 85610; 99214

== ENCOUNTER 2021-08-29 12:48 | Outpatient (CLI) | payer MEDICAID, SELFPAY | END 2021-08-29 12:49 | disposition home or self-care (01) | LOC: ONCMED 12:51 | PROVIDERS: Internal Medicine Medical Oncology; PCP Nurse Practitioner Family; Visit Provider Nurse Practitioner Family | DX: I82.502 Chronic embolism and thrombosis of unspecified deep veins of left lower extremity (principal); Z79.01 Long term (current) use of anticoagulants | CPT/HCPCS: 36415; 85610 ==

== ENCOUNTER 2021-10-03 09:12 | Outpatient (CLI) | payer MEDICAID, SELFPAY ==
[2021-10-03 09:49] LABS: Basophils # 0.1 10^3/uL (0.0-0.1); Basophils % 0.9 %; Eosinophils # 0.2 10^3/uL (0.0-0.8); Eosinophils % 2.1 %; Hematocrit 38.7 % (37.0-47.0); Hemoglobin 12.1 g/dL (11.5-15.3); Lymphocytes # 2.8 10^3/uL (0.8-4.8); Lymphocytes % 31.5 %; Mean Corpuscular HGB Conc 31.3 g/dL (30.0-36.0); Mean Corpuscular Hemoglobin 30.6 pg (28.0-34.0); Mean Corpuscular Volume 97.7 fl (81-99); Mean Platelet Volume 10.1 fL (7.4-10.4); Monocytes # 0.6 10^3/uL (0.2-0.9); Neutrophils # 5.09 10^3/uL (1.8-7.7); Neutrophils % 58.4 %; Nucleated Red Blood Cells % 0 %; Platelet Count 276 10^3/cmm (130-400); Red Blood Count 3.96 10^6/uL (4.1-5.3); Red Cell Distribution Width 16.6 % (12.1-15.1); White Blood Count 8.7 10^3/uL (4.0-10.0)
[2021-10-03 10:00] LABS: INR 2.11 (0.8-1.2)
[2021-10-03 10:10] LABS: Alanine Aminotransferase 14 U/L (0-33); Albumin Level 4.3 g/dL (3.5-5.2); Alkaline Phosphatase 71 IU/L (35-105); Anion Gap 16.5 (5-19); Aspartate Amino Transferase 20 U/L (0-32); Blood Urea Nitrogen 8 mg/dL (8-23); Calcium 8.6 mg/dL (8.5-10.5); Carbon Dioxide 23 mmol/L (22-29); Chloride 98 mmol/L (98-107); Ferritin 267 ng/mL (15-150); Globulin 2.8 g/dL (1.3-4.6); Glomerular Filtration Rate 124.6 mL/min (90-130); Glucose 83 mg/dL (65-115); Iron 73 ug/dL (37-145); Osmolality Calculated 273 mOsm/kg (285-295); Percent Saturation 29.7 % (20-50); Potassium 4.5 mmol/L (3.5-5.1); Sodium 133 mmol/L (136-145); Total Bilirubin 0.3 mg/dL (0.15-1.2); Total Iron Binding Capacity 245 mcg/dl; Total Protein 7.1 g/dL (6.6-8.7); Unsaturated Iron Binding 172 ug/dL (112-347)
--- NOTE | 2021-10-06 11:46 | ONC FU_ITS ---
Dr. Humphrey Patient Follow-Up Note Patient: Jennifer Soto Unit #: [id number]: 1960 Dicatated By: Tulio Humphrey M.D.Date of Visit:Oct 03, 2021 Onc Med Follow-up/Prog Note Chief Complaint: Recurrent thromboembolism. History of Present Illness: This is a 61 year-old woman who with recurrent episodes of deep vein thrombosis. Thus far the episodes have been limited to the left leg. 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 She has not had any documented underlying hypercoagulability. She has remained chronically anticoagulated with warfarin. In March 2018 she was found to be mildly anemic. Her laboratory studies were consistent with iron deficiency. She was not able to tolerate an oral iron supplement. In April 2018 she was given a single infusion of Injectafer. She had a good clinical response. As of her follow-up visit in May 2020 she was slightly anemic again with hemoglobin 11.4 g. Subsequent to that visit, she required treatment for an abscess under the left kneecap which developed following a traumatic injury. It gradually resolved on antibiotic coverage with Bactrim. She then had suspected perforation following a colonoscopy procedure on 11/12/2020. The perforation was not able to be confirmed by CT scan. However, she was given empiric antibiotic coverage with Levaquin and metronidazole. She had uneventful recovery and she then continued anticoagulation with warfarin. Her other medical illnesses include degenerative arthritis and fibromyalgia with chronic pain, multinodular goiter, and recurrent pancreatitis. She has seen Dr. Liu for management of chronic intractable migraine headache. She also has chronic anxiety/depression. She underwent left total hip arthroplasty in October 2012, and she underwent right total hip arthroplasty in February 2016. She has a long history of smoking, currently in the range of 1/2 pack of cigarettes daily. She is seen for a followup visit. She says her arthritis has been giving her crap, but she has been more energetic. Her antidepressant have been changed to bupropion, but she had to stop it because of diarrhea, and she is now back on Prozac. Her ECOG score is 1. Her appetite has been okay. She is trying to lose weight. She does not have fever, night sweats, or hot flashes. She has sinus drainage. She has not had sore mouth or throat. She says her breathing is shallow. She does not complain of cough and she has not been having chest pain. About 2 months ago she had vomiting for 6 or 7 days, presumed to have been due to a stomach virus. She has no other GI complaints. Her diarrhea resolved after stopping the Humira plan. Bladder function has been okay. She has generalized aches and pains as well as chronic back pain. She did have some benefit with injections about a year ago, and she would like to try going back to pain clinic. She has had a few headaches and she complains that she always has dizziness. She has no numbness/paresthesia or other focal neurologic symptoms. Medications: Pantoprazole Sodium 1 Tablet (of 40 mg) Tablet, enteric coated Oral daily PRN, buPROPion HCl ER (XL) 1 Tablet (of 150 mg) Tablet SR 24 HR Oral daily, Cholecalciferol 1 Capsule (of 16808 Units) Oral q 7 days, ClonazePAM 1 (1 mg) Tablet Oral t.i.d., EQ Mucus ER 1 Tablet (of 600 mg) Tablet SR 12 HR Oral b.i.d. PRN, Flonase 2 spray(s) (of 50 mcg/act) Suspension Nasal daily, FLUoxetine HCl 1 Tablet (of 10 mg) Capsule Oral daily, Hydrocodone-Acetaminophen 10-325 mg - Take 1 Tablet Oral four times a day PRN, Vitamins 1 Tablet Oral daily, Sudafed 1 (30 mg) Tablet Oral daily PRN, Warfarin Sodium 1 (10 mg) Tablet Oral daily Allergies: compazine Vital Signs: Performed on Oct 03, 2021 11:04 Height - 65.00 in Weight - 177.2 lbs (LOW) BSA - 1.88 sq.m BMI - 29.49 Temperature - 97.6 F (LOW) Pulse - 97 /min Respiration - 16 /min BP - 153/81 mm(hg) (HIGH) O2 Sat - 97 % Pain - 6 Fatigue - 5 Physical Examination: Constitutional - She looks pretty good generally, Eyes - Sclerae nonicteric. Conjunctivae clear, ENMT - No lesions noted in the oral cavity, Hematologic/Lymphatic - No cervical, clavicular, or axillary adenopathy, Respiratory - Lungs are clear with some decrease in air movement bilaterally, Cardiovascular - Heart rhythm is regular. There is no murmur, gallop, or rub noted, Abdomen - Soft. Liver and spleen are not enlarged. There is no abdominal mass or ascites noted and there is no inguinal adenopathy, Extremities - There are venous stasis changes bilaterally. There is some chronic swelling of the left leg, Neurologic - No focal neurologic deficits noted. Lab/Imaging: Test performed on Oct 03, 2021 09:40 Ferritin 267 ng/mL Iron 73 mcg/dL Sodium 133 mmol/L Iron Binding Capacity (TIBC) 245 mcg/dl Potassium 4.5 mmol/L % Iron Saturation 29.7 % Chloride 98 mmol/L CO2 23 mmol/L UIBC 172 mcg/dL Anion Gap 16.5 BUN 8 mg/dL Creatinine 0.5 mg/dL Cr Clearance (Est) 146.13 mL/min eGFR 124.6 mL/min Glucose 83 mg/dL Osmolality - Calculated 273 mOsm/kg Calcium 8.6 mg/dL Protein, Total 7.1 g/dL Albumin 4.3 g/dL Globulin 2.8 g/dL Bilirubin, Total 0.3 mg/dL ALT (SGPT) 14 U/L AST (SGOT) 20 U/L Alkaline Phosphatase 71 IU/L PT 24.10 SECONDS WBC 8.7 10 3/uL INR 2.11 RBC 3.96 10 6/uL HGB 12.1 g/dL HCT 38.7 % MCV 97.7 fl MCH 30.6 pg MCHC 31.3 g/dL RDW 16.6 % Platelet Count 276 10 3/cmm MPV 10.1 fL Neutrophils 5.09 10 3/uL Lymphocytes 2.8 10 3/uL Monocytes 0.6 10 3/uL Eosinophils 0.2 10 3/uL Basophils 0.1 10 3/uL Neutrophil % 58.4 % Lymphocyte % 31.5 % Monocyte % 7.0 % Eosinophil % 2.1 % Basophils % 0.9 % NRBC % 0 % Test performed on Aug 29, 2021 13:10 Coumadin, Current Dose 10mg daily Coumadin, New Dose same Problem List: 1. 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 She has no documented hypercoagulability. She has had no evidence of new thrombosis while on therapeutic anticoagulation with warfarin. 2. Iron deficiency anemia, requiring parenteral iron replacement in April 2018. 3. Degenerative arthritis with chronic musculoskeletal pain and fatigue. 4. Multinodular goiter. 5. Chronic migraine. 6. History of recurrent pancreatitis. 7. Chronic anxiety/depression. 8. Nicotine dependence. Problems Addressed with this Encounter and Plan: 1. Patient with recurrent episodes of deep vein thrombosis of the left leg with associated postphlebitic syndrome. During followup there has been no documented acute thrombosis while on anticoagulation with warfarin. She will continue warfarin at the same dosage. Her pro times will be monitored monthly. She will be scheduled for a followup visit in 3 months. 2. She has required treatment for iron deficiency anemia, but her recent blood counts have been stable and adequate. 3. She has chronic musculoskeletal pain. Recently her back pain has been getting worse. Her pain has otherwise been managed adequately with hydrocodone/APAP. It will be continued at the same dosage, but I will now try and get her return appointment at pain clinic for the back pain. Signed By: Tulio Humphrey M.D. <<Signature on File>>
== END 2021-10-03 09:13 | disposition home or self-care (01) ==
LOC: ONCMED 09:15
PROVIDERS: PCP Nurse Practitioner Family; Visit Provider Internal Medicine Medical Oncology
DX: I82.502 Chronic embolism and thrombosis of unspecified deep veins of left lower extremity (principal); D50.9 Iron deficiency anemia, unspecified; M19.90 Unspecified osteoarthritis, unspecified site; G89.29 Other chronic pain; R53.82 Chronic fatigue, unspecified; E04.2 Nontoxic multinodular goiter; G43.909 Migraine, unspecified, not intractable, without status migrainosus; K86.1 Other chronic pancreatitis; F41.8 Other specified anxiety disorders; F17.200 Nicotine dependence, unspecified, uncomplicated
CPT/HCPCS: 36415; 80053; 82728; 83540; 83550; 85025; 85610; 99214

== ENCOUNTER → 2021-10-09 09:06 | Outpatient (BNVA) | payer MEDICAID, SELFPAY | PROVIDERS: PCP Nurse Practitioner Family; Referring Provider Internal Medicine Medical Oncology; Visit Provider Anesthesiology Pain Medicine | DX: M47.816 Spondylosis without myelopathy or radiculopathy, lumbar region (principal); M48.061 Spinal stenosis, lumbar region without neurogenic claudication; F17.210 Nicotine dependence, cigarettes, uncomplicated; M25.559 Pain in unspecified hip; Z79.891 Long term (current) use of opiate analgesic | CPT/HCPCS: 99213; 99214 ==

== ENCOUNTER → 2021-10-21 14:03 | Outpatient (BNVA) | payer MEDICAID, SELFPAY | PROVIDERS: PCP Nurse Practitioner Family; Visit Provider Anesthesiology Pain Medicine | DX: F17.210 Nicotine dependence, cigarettes, uncomplicated (principal); Z79.891 Long term (current) use of opiate analgesic; M47.816 Spondylosis without myelopathy or radiculopathy, lumbar region | CPT/HCPCS: 64493; 64494; 64495; J3490 ==

== ENCOUNTER → 2021-11-02 09:11 | Outpatient (BNVA) | payer MEDICAID, SELFPAY | PROVIDERS: PCP Nurse Practitioner Family; Referring Provider Surgery; Visit Provider Surgery | DX: R19.7 Diarrhea, unspecified (principal) | CPT/HCPCS: 83630; 87177; 87209; 87493; 87506 ==

== ENCOUNTER → 2021-11-19 10:01 | Outpatient (BNVA) | payer MEDICAID, SELFPAY | PROVIDERS: PCP Nurse Practitioner Family; Visit Provider Anesthesiology Pain Medicine | DX: M47.816 Spondylosis without myelopathy or radiculopathy, lumbar region (principal); M48.061 Spinal stenosis, lumbar region without neurogenic claudication; F17.210 Nicotine dependence, cigarettes, uncomplicated; Z79.891 Long term (current) use of opiate analgesic; K92.1 Melena; I82.409 Acute embolism and thrombosis of unspecified deep veins of unspecified lower extremity; R10.13 Epigastric pain; R19.7 Diarrhea, unspecified | CPT/HCPCS: 87635; 99214 ==

== ENCOUNTER 2021-11-22 08:03 | Day surgery (SDC) | payer MEDICAID, SELFPAY ==
[2021-11-19 15:38] VITALS: BMI 29.4
--- NOTE | 2021-11-22 09:24 | P.ANESASSM_ITS ---
Pre-Anesthetic Assessment Height/Weight: Height 1.65 m Weight 80.286 kg Preop Diagnosis: upper gi symptoms Operation Date: 11/22/21 09:45 Proposed Procedures p EGD 14613/k92.1(Not Applicable) - Taiwo Cleveland MD Familial anesthetic complications: None Was Beta Betzy taken within 24 hours: N/A Was Clonidine taken within 24 hours: N/A Last intake: 11/21/2021 Social Tobacco and No alcohol Exam alert, oriented x 3 and regular rate & rhythm Wheezing Airway Submandibular: within normal limits Cervical ROM: within normal limits Mallampati: Class I Dentition: false History/ROS No significant complaints Pulmonary Exertional Dyspnea CV/HEM Deep Vein Thrombosis Hx of multiple DVTs METS = 4 None reported Hepatic None reported GI Coffee ground emesis Metabolic None reported Musc/skel Lower Back Pain and Osteoarthritis/DJD Lumbar stenosis Facet arthrosis Neuropsych None reported Anesthetic Plan ASA status: 3 (61 year old female w/ hx of multiple DVTs requiring IVC filter (now removed) and smoking) Anesthesia: Anesthesia Evaluation and General Other: I discussed with the patient risks, goals, and benefits of MAC and general anesthesia. We discussed spectrum of MAC anesthesia including conversion to general as well as possibility of recall of intraoperative stimuli including discomfort/pain. Patient agrees to proceed with MAC. Risk of > 500 ml blood loss (7ml/kg in children): No Medications/Allergies Home Medications Medication Instructions Recorded Confirmed Last Taken Type albuterol sulfate 90 mcg/actuation 2 puff INHALATION Q4H PRN 03/24/20 11/19/21 11/08/20 History aerosol inhaler (ProAir HFA) clonazepam 1 mg tablet 1 mg PO TID PRN 03/24/20 11/19/21 11/08/20 History fluoxetine 20 mg capsule 60 mg PO DAILY 03/24/20 11/19/21 11/08/20 History fluticasone propionate 50 2 spray INTRANASAL DAILY PRN 03/24/20 11/19/21 11/08/20 History mcg/actuation nasal spray,suspension hydrocodone 10 mg-acetaminophen 1 tab PO QID PRN 03/24/20 11/19/21 11/08/20 History 325 mg tablet vitamin with calcium 1 tab PO DAILY 03/24/20 11/19/21 11/08/20 History no.72-iron 27 mg-folic acid 1 mg tablet ( Vitamins Plus Low Iron) warfarin 10 mg tablet 10 mg PO DAILY 03/24/20 11/19/21 11/07/20 History nitroglycerin 0.4 mg sublingual 0.4 mg SUBLINGUAL Q5M PRN #25 tab 04/17/20 11/19/21 Unknown Rx tablet Acidophilus 1 cap PO BID 07/10/20 11/19/21 11/08/20 History pseudoephedrine HCl 30 mg tablet See Rx Instructions .ROUTE .COMPLEX 08/10/20 11/19/21 11/08/20 History (Sudogest) Allergies Allergy/AdvReac Type Severity Reaction Status Date / Time prochlorperazine Allergy ADR-Anxiety Verified 11/22/21 09:26 [From Compazine] [facility] Anesthesia Medical History DVT (deep venous thrombosis) Facet arthritis, degenerative, lumbar spine Surgical History History of appendectomy History of hip surgery History of hysterectomy Status post colonoscopy Family History Other CAD (coronary artery disease) Myocardial infarction Denies family history of Diabetes Social History Smoking and tobacco status: current every day smoker cigarettes Packs smoked per day: 0.5 Alcohol intake: never Lives independently: Yes History of recent travel: No Data Anesthesia Cardiac Studies: Sestamibi Stress Test (Cardiology) 04/27/20
[2021-11-22 09:31] VITALS: BP 141/79; PULSE 76; RESP 18; TEMP 36.2; O2SAT 98
--- NOTE | 2021-11-22 09:32 | W.PM.OPSFHP ---
Same Day Surgery H&P Indication for Procedure/HPI DATE OF PROCEDURE: November 22, 2021 CHIEF COMPLAINT/INDICATIONFOR SURGICAL PROCEDURE: egd PREOP DIAGNOSIS: upper gi symptoms PLANNED PROCEDURE: Operation Date: 11/22/21 09:45 Proposed Procedures p EGD 58380/k92.1(Not Applicable) - Taiwo Cleveland MD Medications/Allergies* Home Medications Medication Instructions Recorded Confirmed Type albuterol sulfate 90 mcg/actuation 2 puff INHALATION Q4H PRN 03/24/20 11/22/21 History aerosol inhaler (ProAir HFA) clonazepam 1 mg tablet 1 mg PO TID PRN 03/24/20 11/22/21 History fluoxetine 20 mg capsule 60 mg PO DAILY 03/24/20 11/22/21 History fluticasone propionate 50 2 spray INTRANASAL DAILY PRN 03/24/20 11/22/21 History mcg/actuation nasal spray,suspension hydrocodone 10 mg-acetaminophen 1 tab PO QID PRN 03/24/20 11/22/21 History 325 mg tablet vitamin with calcium 1 tab PO DAILY 03/24/20 11/22/21 History no.72-iron 27 mg-folic acid 1 mg tablet ( Vitamins Plus Low Iron) warfarin 10 mg tablet 10 mg PO DAILY 03/24/20 11/22/21 History Acidophilus 1 cap PO BID 07/10/20 11/22/21 History pseudoephedrine HCl 30 mg tablet 30 mg PO DAILY PRN 08/10/20 11/22/21 History (Sudogest) Allergies/Adverse Reactions Allergy/AdvReac Type Severity Reaction Status Date / Time prochlorperazine Allergy ADR-Anxiety Verified 11/22/21 09:26 [From Compazine] Pertinent History/Comorbid Conditions* Medical History (Updated 11/12/20 @ 11:50 by Taiwo Cleveland MD) DVT (deep venous thrombosis) Facet arthritis, degenerative, lumbar spine Surgical History (Updated 11/14/20 @ 00:01 by ) History of appendectomy History of hip surgery History of hysterectomy Status post colonoscopy Family History (Updated 04/17/20 @ 13:03 by Dahiana Lopez RN) CAD (coronary artery disease) Myocardial infarction Denies family history of Diabetes Social History Smoking and tobacco status: current every day smoker cigarettes Packs smoked per day: 0.5 Alcohol intake: never Lives independently: Yes History of recent travel: No Pertinent Exam Findings alert, oriented x 3 and regular rate & rhythm Recommendations Surgery/Procedure today Coding Level of Care Code Acute Fuselage Framer for Sadie Yepez
[2021-11-22] MEDS: sodium chloride 0.9% 1,000 ML 30 ML IV (09:39)
[2021-11-22 10:21] VITALS: BP 102/66; PULSE 74; RESP 16; TEMP 36.3; O2SAT 95
[2021-11-22 10:32] VITALS: BP 106/69; PULSE 69; RESP 18; O2SAT 96
--- NOTE | 2021-11-22 13:47 | ANE.PACU2 ---
Inpatient post-anesthesia follow up: Airway intact: Yes Vital signs: Temperature 97.4 F Pulse Rate 69 Respiratory Rate 18 Blood Pressure 106/69 Pulse Oximetry 96 Oxygen Delivery Me thod Room Air Oxygen Flow Rate Fraction of Inspir ed Oxygen Hydration adequate: Yes Nausea and vomiting: No Pain level: 1 Mental status: Baseline
== END 2021-11-22 11:04 | disposition home or self-care (01) ==
PROVIDERS: PCP Nurse Practitioner Family; Visit Provider Surgery
PROC: 0DJ08ZZ Inspection of Upper Intestinal Tract, Via Natural or Artificial Opening Endoscopic (ICD-10-PCS; CPT 43235; principal; 2021-11-22 09:45)
DX: Z12.11 Encounter for screening for malignant neoplasm of colon (principal); Z80.0 Family history of malignant neoplasm of digestive organs; K29.70 Gastritis, unspecified, without bleeding; K20.90 Esophagitis, unspecified without bleeding; Z86.718 Personal history of other venous thrombosis and embolism; F17.210 Nicotine dependence, cigarettes, uncomplicated
CPT/HCPCS: 43239; 88305; J7030

== ENCOUNTER 2021-11-27 14:10 | Outpatient (CLI) | payer MEDICAID, SELFPAY ==
[2021-11-27 14:53] LABS: INR 2.06 (0.8-1.2)
== END 2021-11-27 14:11 | disposition home or self-care (01) ==
LOC: ONCMED 14:12
PROVIDERS: PCP Nurse Practitioner Family; Visit Provider Internal Medicine Medical Oncology
DX: D75.839 Thrombocytosis, unspecified (principal)
CPT/HCPCS: 36415; 85610

== ENCOUNTER 2021-12-02 12:55 | Outpatient (CLI) | payer MEDICAID, SELFPAY ==
[2021-12-02 13:38] LABS: INR 2.96 (0.8-1.2)
== END 2021-12-02 12:56 | disposition home or self-care (01) ==
LOC: ONCMED 12:55
PROVIDERS: PCP Nurse Practitioner Family; Visit Provider Internal Medicine Medical Oncology
DX: D75.839 Thrombocytosis, unspecified (principal)
CPT/HCPCS: 36415; 85610

== ENCOUNTER 2021-12-10 14:03 | Outpatient (CLI) | payer MEDICAID, SELFPAY | END 2021-12-10 14:04 | disposition home or self-care (01) | LOC: ONCMED 14:04 | PROVIDERS: PCP Nurse Practitioner Family; Visit Provider Internal Medicine Medical Oncology | DX: I82.409 Acute embolism and thrombosis of unspecified deep veins of unspecified lower extremity (principal); Z79.01 Long term (current) use of anticoagulants | CPT/HCPCS: 36415; 64636; 85610 ==

== ENCOUNTER → 2021-12-16 12:37 | Outpatient (BNVA) | payer MEDICAID, SELFPAY | PROVIDERS: PCP Nurse Practitioner Family; Visit Provider Anesthesiology Pain Medicine | DX: F17.210 Nicotine dependence, cigarettes, uncomplicated (principal); Z79.891 Long term (current) use of opiate analgesic; M47.816 Spondylosis without myelopathy or radiculopathy, lumbar region | CPT/HCPCS: 64635; 64636; J1030 ==

== ENCOUNTER 2021-12-25 09:44 | Outpatient (CLI) | payer MEDICAID, SELFPAY ==
[2021-12-25 10:44] LABS: INR 2.47 (0.8-1.2)
== END 2021-12-25 09:45 | disposition home or self-care (01) ==
LOC: ONCMED 09:44
PROVIDERS: PCP Nurse Practitioner Family; Visit Provider Internal Medicine Medical Oncology
DX: I82.4Z2 Acute embolism and thrombosis of unspecified deep veins of left distal lower extremity (principal); Z79.01 Long term (current) use of anticoagulants
CPT/HCPCS: 36415; 64635; 85610

== ENCOUNTER 2022-01-07 09:11 | Outpatient (CLI) | payer MEDICAID, SELFPAY ==
[2022-01-07 09:39] LABS: Basophils # 0.1 10^3/uL (0.0-0.1); Basophils % 1.1 %; Eosinophils # 0.2 10^3/uL (0.0-0.8); Eosinophils % 2.2 %; Hematocrit 38.8 % (37.0-47.0); Hemoglobin 12.1 g/dL (11.5-15.3); Lymphocytes # 2.6 10^3/uL (0.8-4.8); Lymphocytes % 34.1 %; Mean Corpuscular HGB Conc 31.2 g/dL (30.0-36.0); Mean Corpuscular Hemoglobin 31.1 pg (28.0-34.0); Mean Corpuscular Volume 99.7 fl (81-99); Mean Platelet Volume 10.2 fL (7.4-10.4); Monocytes # 0.5 10^3/uL (0.2-0.9); Monocytes % 6.9 %; Neutrophils # 4.18 10^3/uL (1.8-7.7); Neutrophils % 55.3 %; Nucleated Red Blood Cells % 0 %; Platelet Count 291 10^3/cmm (130-400); Red Blood Count 3.89 10^6/uL (4.1-5.3); Red Cell Distribution Width 15.6 % (12.1-15.1); White Blood Count 7.6 10^3/uL (4.0-10.0)
[2022-01-07 09:58] LABS: INR 2.94 (0.8-1.2)
[2022-01-07 10:26] LABS: Alanine Aminotransferase 17 U/L (0-33); Albumin Level 4.1 g/dL (3.5-5.2); Alkaline Phosphatase 77 IU/L (35-105); Anion Gap 15.9 (5-19); Aspartate Amino Transferase 26 U/L (0-32); Blood Urea Nitrogen 7 mg/dL (8-23); Calcium 8.7 mg/dL (8.5-10.5); Carbon Dioxide 24 mmol/L (22-29); Chloride 101 mmol/L (98-107); Globulin 3.3 g/dL (1.3-4.6); Glucose 106 mg/dL (65-115); Osmolality Calculated 282 mOsm/kg (285-295); Potassium 3.9 mmol/L (3.5-5.1); Sodium 137 mmol/L (136-145); Total Bilirubin 0.2 mg/dL (0.15-1.2); Total Protein 7.4 g/dL (6.6-8.7)
[2022-01-07 13:33] LABS: Free T4 Free Thyroxine 1.11 ng/dL (0.82-1.77); Thyroid Stimulating Hormone 0.64 uIU/mL (0.27-4.20)
--- NOTE | 2022-01-08 08:07 | ONC FU_ITS ---
Dr. Humphrey Patient Follow-Up Note Patient: Jennifer Soto Unit #: [id number]: [id number] Dicatated By: Tulio Humphrey M.D.Date of Visit:Jan 07, 2022 Onc Med Follow-up/Prog Note Chief Complaint: Recurrent thromboembolism. History of Present Illness: This is a 61 year-old woman who with recurrent episodes of deep vein thrombosis. Thus far the episodes have been limited to the left leg. 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 She has not had any documented underlying hypercoagulability. She has remained chronically anticoagulated with warfarin. In March 2018 she was found to be mildly anemic. Her laboratory studies were consistent with iron deficiency. She was not able to tolerate an oral iron supplement. In April 2018 she was given a single infusion of Injectafer. She had a good clinical response. As of her follow-up visit in May 2020 she was slightly anemic again with hemoglobin 11.4 g. Subsequent to that visit, she required treatment for an abscess under the left kneecap which developed following a traumatic injury. It gradually resolved on antibiotic coverage with Bactrim. She then had suspected perforation following a colonoscopy procedure on 11/12/2020. The perforation was not able to be confirmed by CT scan. However, she was given empiric antibiotic coverage with Levaquin and metronidazole. She had uneventful recovery and she then continued anticoagulation with warfarin. Her other medical illnesses include degenerative arthritis and fibromyalgia with chronic pain, multinodular goiter, and recurrent pancreatitis. She has seen Dr. Liu for management of chronic intractable migraine headache. She also has chronic anxiety/depression. She underwent left total hip arthroplasty in October 2012, and she underwent right total hip arthroplasty in February 2016. She has a long history of smoking, currently in the range of 1/2 pack of cigarettes daily. She is seen for a scheduled follow-up visit. Lately she has been having severe back pain. She did have an RFA procedure earlier this month. Her other main complaint has been diarrhea, which has been going on for 4 months. She has been seeing Dr. Cleveland. Her stool tested negative for C. difficile, for enteric bacterial pathogens, and for parasites. Her EGD on 11/22/2021 showed erosive gastritis, and she was found to have H. pylori. She completed antibiotic therapy and she has continued treatment with pantoprazole 40 mg twice daily. She describes being severely fatigued, and her activity is also limited by her back pain. Her ECOG score is 2. She has been hungry all the time since the back procedure, which included an injection of Solu-Medrol. She has not had fever or night sweats. She has not had sore mouth or throat. She does not complain of cough. She does have some shortness of breath, which is the same. She has not had chest pain. She continues to have diarrhea, which she describes as dirty water . She has no other GI or complaints. She also has joint pain, which is worse in the rainy weather. She has been having some headaches and she reports having quite a bit of dizziness. She has no focal neurologic symptoms. Medications: 9Pantoprazole Sodium 1 Tablet (of 40 mg) Tablet, enteric coated Oral daily PRN, Cholecalciferol 1 Capsule (of 17811 Units) Oral q 7 days, ClonazePAM 1 (1 mg) Tablet Oral t.i.d., EQ Mucus ER 1 Tablet (of 600 mg) Tablet SR 12 HR Oral b.i.d. PRN, Flonase 2 spray(s) (of 50 mcg/act) Suspension Nasal daily, FLUoxetine HCl 1 Tablet (of 40 mg) Capsule Oral daily, Hydrocodone-Acetaminophen 10-325 mg - Take 1 Tablet Oral four times a day PRN, Vitamins 1 Tablet Oral daily, Protonix 1 Tablet Tablet, enteric coated Oral b.i.d., Sudafed 1 (30 mg) Tablet Oral daily PRN, Warfarin Sodium 1 (10 mg) Tablet Oral daily Allergies: compazine Vital Signs: Performed on Jan 07, 2022 11:25 Height - 65.00 in Weight - 178.8 lbs (HIGH) BSA - 1.89 sq.m BMI - 29.75 Temperature - 96.8 F (LOW) Pulse - 91 /min Respiration - 18 /min BP - 142/81 mm(hg) (HIGH) O2 Sat - 97 % Pain - 8 Fatigue - 8 Physical Examination: Constitutional - She has limited mobility and she does appear to be in significant discomfort, Eyes - Sclerae nonicteric. Conjunctivae clear, ENMT - No lesions noted in the oral cavity, Neck - She has a goiter. There are no discrete nodules palpable, Hematologic/Lymphatic - No cervical, clavicular, or axillary adenopathy, Respiratory - Lungs are clear with some decrease in air movement bilaterally, Cardiovascular - Heart rhythm is regular. There is no murmur, gallop, or rub noted, Abdomen - Soft. Liver and spleen are not enlarged. There is no abdominal mass or ascites noted and there is no inguinal adenopathy, Extremities - There are venous stasis changes bilaterally. There is some chronic swelling of the left leg, Neurologic - No focal neurologic deficits noted. Lab/Imaging: Test performed on Dec 25, 2021 17:42 PT 27.20 sec INR 2.47 Problem List: 1. 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 She has no documented hypercoagulability. She has had no evidence of new thrombosis while on therapeutic anticoagulation with warfarin. 2. Iron deficiency anemia, requiring parenteral iron replacement in April 2018. 3. Degenerative arthritis with chronic musculoskeletal pain and fatigue. 4. Multinodular goiter. 5. Chronic migraine. 6. History of recurrent pancreatitis. 7. Chronic anxiety/depression. 8. Nicotine dependence. Problems Addressed with this Encounter and Plan: 1. Patient with recurrent episodes of deep vein thrombosis of the left leg with associated postphlebitic syndrome. During followup there has been no documented acute thrombosis while on anticoagulation with warfarin. She will continue warfarin at the same dosage. Her pro times will be monitored monthly. She will be scheduled for a followup visit in 3 months. 2. She has required treatment for iron deficiency anemia, but her recent blood counts have been stable and adequate. 3. She has chronic musculoskeletal pain. She has been having more severe back pain, which has persisted despite a recent RFA procedure. She continues treatment with hydrocodone/APAP at the same dosage. 4. She has had persistent diarrhea for the past 4 months. A specific cause has not been determined. I am going to repeat stool test for C. difficile and for ova/parasites. If negative, I will give her the option to try symptomatic management with colestipol. Signed By: Tulio Humphrey M.D. <<Signature on File>>
== END 2022-01-07 09:12 | disposition home or self-care (01) ==
PROVIDERS: PCP Nurse Practitioner Family; Visit Provider Internal Medicine Medical Oncology
DX: Z86.718 Personal history of other venous thrombosis and embolism (principal); I87.002 Postthrombotic syndrome without complications of left lower extremity; Z79.01 Long term (current) use of anticoagulants; D50.9 Iron deficiency anemia, unspecified; G89.29 Other chronic pain; M79.10 Myalgia, unspecified site; M54.9 Dorsalgia, unspecified; Z79.891 Long term (current) use of opiate analgesic; R19.7 Diarrhea, unspecified
CPT/HCPCS: 36415; 80053; 84439; 84443; 85025; 85610; 99214

== ENCOUNTER 2022-02-11 08:22 | Outpatient (CLI) | payer MEDICAID, SELFPAY ==
--- NOTE | 2022-02-11 08:28 | MM_ITS ---
WS: [id number] Bilateral screening 3D tomosynthesis digital mammogram, 02/11/2022 Clinical Data: SCREENING Comparison: 06/27/2019, 08/17/2017, 07/11/2016, 07/13/2015, 03/22/2014, 10/01/2011, 08/22/2009, 04/18/2008. Findings: The breast parenchymal pattern shows fibroglandular tissue. No spiculated masses or clustered calcifi cations are seen. There are no secondary signs of carcinoma. There are small vascular calcifications. MM/[place] [id number] Impression: 1. Negative bilateral mammogram unchanged. 2. Recommend annual screening mammograms. BIRADS: 1-Negative FOLLOW UP: 1 Year Follow-up The CAD wash test checker was used.
[2022-02-11 10:12] LABS: INR 1.94 (0.8-1.2)
== END 2022-02-11 08:23 | disposition home or self-care (01) ==
LOC: RAD 08:23
PROVIDERS: Internal Medicine Medical Oncology; PCP Nurse Practitioner Family; Visit Provider Nurse Practitioner Family
DX: Z12.31 Encounter for screening mammogram for malignant neoplasm of breast (principal); I82.502 Chronic embolism and thrombosis of unspecified deep veins of left lower extremity
CPT/HCPCS: 77063; 77067; 85610

== ENCOUNTER 2022-04-10 11:03 | Oncology outpatient (recurring) (ONCR) | payer MEDICAID, SELFPAY ==
[2022-04-10 11:42] LABS: Basophils # 0.1 10^3/uL (0.0-0.1); Eosinophils # 0.2 10^3/uL (0.0-0.8); Hematocrit 35.4 % (37.0-47.0); Hemoglobin 11.6 g/dL (11.5-15.3); Lymphocytes # 3.6 10^3/uL (0.8-4.8); Lymphocytes % 41.8 %; Mean Corpuscular HGB Conc 32.8 g/dL (30.0-36.0); Mean Corpuscular Hemoglobin 30.5 pg (28.0-34.0); Mean Corpuscular Volume 93.2 fl (81-99); Mean Platelet Volume 10.5 fL (7.4-10.4); Monocytes # 0.7 10^3/uL (0.2-0.9); Monocytes % 8.1 %; Neutrophils # 4.05 10^3/uL (1.8-7.7); Neutrophils % 46.9 %; Nucleated Red Blood Cells % 0 %; Platelet Count 272 10^3/cmm (130-400); Red Cell Distribution Width 15.7 % (12.1-15.1); White Blood Count 8.7 10^3/uL (4.0-10.0)
[2022-04-10 12:05] LABS: INR 3.09 (0.8-1.2)
[2022-04-10 12:13] LABS: Alanine Aminotransferase 12 U/L (0-33); Albumin Level 4.2 g/dL (3.5-5.2); Alkaline Phosphatase 79 IU/L (35-105); Anion Gap 15.9 (5-19); Aspartate Amino Transferase 18 U/L (0-32); Blood Urea Nitrogen 7 mg/dL (8-23); Calcium 8.8 mg/dL (8.5-10.5); Carbon Dioxide 24 mmol/L (22-29); Chloride 99 mmol/L (98-107); Globulin 2.6 g/dL (1.3-4.6); Glucose 81 mg/dL (65-115); Osmolality Calculated 277 mOsm/kg (285-295); Potassium 3.9 mmol/L (3.5-5.1); Sodium 135 mmol/L (136-145); Total Bilirubin 0.2 mg/dL (0.15-1.2); Total Protein 6.8 g/dL (6.6-8.7)
== END 2022-04-13 23:59 | disposition home or self-care (01) ==
PROVIDERS: PCP Nurse Practitioner Family; Visit Provider Internal Medicine Medical Oncology
DX: I82.502 Chronic embolism and thrombosis of unspecified deep veins of left lower extremity (principal); Z79.01 Long term (current) use of anticoagulants; D50.9 Iron deficiency anemia, unspecified; Z79.899 Other long term (current) drug therapy; R53.83 Other fatigue; F17.210 Nicotine dependence, cigarettes, uncomplicated
CPT/HCPCS: 36415; 80053; 85025; 85610; 99214

== ENCOUNTER → 2022-06-05 10:58 | Outpatient (BNVA) | payer MEDICAID, SELFPAY | PROVIDERS: PCP Nurse Practitioner Family; Visit Provider Anesthesiology Pain Medicine | DX: M47.816 Spondylosis without myelopathy or radiculopathy, lumbar region (principal); M48.061 Spinal stenosis, lumbar region without neurogenic claudication; F17.210 Nicotine dependence, cigarettes, uncomplicated | CPT/HCPCS: 99214 ==

== ENCOUNTER 2022-07-14 12:54 | Oncology outpatient (recurring) (ONCR) | payer MEDICAID, SELFPAY ==
[2022-07-14 13:21] LABS: Basophils # 0.1 10^3/uL (0.0-0.1); Basophils % 1.1 %; Eosinophils # 0.2 10^3/uL (0.0-0.8); Eosinophils % 1.9 %; Hematocrit 37.9 % (37.0-47.0); Hemoglobin 12.2 g/dL (11.5-15.3); Lymphocytes % 44.4 %; Mean Corpuscular HGB Conc 32.2 g/dL (30.0-36.0); Mean Corpuscular Hemoglobin 30.7 pg (28.0-34.0); Mean Corpuscular Volume 95.5 fl (81-99); Mean Platelet Volume 10.1 fL (7.4-10.4); Monocytes # 0.7 10^3/uL (0.2-0.9); Monocytes % 7.9 %; Neutrophils # 4.01 10^3/uL (1.8-7.7); Neutrophils % 44.6 %; Nucleated Red Blood Cells % 0 %; Platelet Count 265 10^3/cmm (130-400); Red Blood Count 3.97 10^6/uL (4.1-5.3); Red Cell Distribution Width 15.6 % (12.1-15.1)
[2022-07-14 15:46] LABS: INR 3.33 (0.8-1.2)
[2022-07-14 16:20] LABS: Alanine Aminotransferase 12 U/L (0-33); Albumin Level 3.9 g/dL (3.5-5.2); Alkaline Phosphatase 79 U/L (35-105); Anion Gap 13.6 (5-19); Aspartate Amino Transferase 19 U/L (0-32); Blood Urea Nitrogen 10 mg/dL (8-23); Calcium 9.2 mg/dL (8.5-10.5); Carbon Dioxide 23 mmol/L (22-29); Chloride 96 mmol/L (98-107); Glomerular Filtration Rate 84.5 mL/min (90-130); Glucose 122 mg/dL (65-115); Iron 48 ug/dL (37-145); Osmolality Calculated 268 mOsm/kg (285-295); Potassium 3.6 mmol/L (3.5-5.1); Sodium 129 mmol/L (136-145); Thyroid Stimulating Hormone 0.64 uIU/mL (0.27-4.20); Total Bilirubin 0.2 mg/dL (0.15-1.2); Total Iron Binding Capacity 239 mcg/dl; Total Protein 6.9 g/dL (6.6-8.7); Unsaturated Iron Binding 191 ug/dL (112-347); Vitamin B12 683 pg/mL (232-1245)
== END 2022-07-14 23:59 | disposition home or self-care (01) ==
LOC: ONCMED 12:55
PROVIDERS: PCP Nurse Practitioner Family; Visit Provider Internal Medicine Medical Oncology
DX: Z09 Encounter for follow-up examination after completed treatment for conditions other than malignant neoplasm (principal); Z86.718 Personal history of other venous thrombosis and embolism; Z79.01 Long term (current) use of anticoagulants; R53.83 Other fatigue; R63.4 Abnormal weight loss; F17.210 Nicotine dependence, cigarettes, uncomplicated; N39.3 Stress incontinence (female) (male); R35.0 Frequency of micturition; D50.8 Other iron deficiency anemias
CPT/HCPCS: 36415; 80053; 82607; 83540; 83550; 84443; 85025; 85610; 99214

== ENCOUNTER 2022-08-20 12:53 | Outpatient (CLI) | payer MEDICAID, SELFPAY ==
[2022-08-20 13:21] LABS: Basophils # 0.1 10^3/uL (0.0-0.1); Basophils % 0.8 %; Eosinophils # 0.2 10^3/uL (0.0-0.8); Eosinophils % 2.1 %; Hematocrit 40.3 % (37.0-47.0); Hemoglobin 12.6 g/dL (11.5-15.3); Lymphocytes # 4.2 10^3/uL (0.8-4.8); Lymphocytes % 44.2 %; Mean Corpuscular HGB Conc 31.3 g/dL (30.0-36.0); Mean Corpuscular Hemoglobin 30.7 pg (28.0-34.0); Mean Corpuscular Volume 98.1 fl (81-99); Mean Platelet Volume 10.1 fL (7.4-10.4); Monocytes # 0.6 10^3/uL (0.2-0.9); Monocytes % 6.3 %; Neutrophils # 4.36 10^3/uL (1.8-7.7); Neutrophils % 46.3 %; Nucleated Red Blood Cells % 0 %; Platelet Count 306 10^3/cmm (130-400); Red Blood Count 4.11 10^6/uL (4.1-5.3); Red Cell Distribution Width 15.8 % (12.1-15.1); White Blood Count 9.4 10^3/uL (4.0-10.0)
[2022-08-20 13:29] LABS: INR 2.79 (0.8-1.2)
[2022-08-20 13:35] LABS: Alanine Aminotransferase 13 U/L (0-33); Albumin Level 4.1 g/dL (3.5-5.2); Alkaline Phosphatase 74 U/L (35-105); Anion Gap 13.5 (5-19); Aspartate Amino Transferase 17 U/L (0-32); Blood Urea Nitrogen 9 mg/dL (8-23); Calcium 9.7 mg/dL (8.5-10.5); Carbon Dioxide 26 mmol/L (22-29); Chloride 99 mmol/L (98-107); Glomerular Filtration Rate 72.4 mL/min (90-130); Glucose 110 mg/dL (65-115); Osmolality Calculated 277 mOsm/kg (285-295); Potassium 4.5 mmol/L (3.5-5.1); Sodium 134 mmol/L (136-145); Total Bilirubin 0.3 mg/dL (0.15-1.2); Total Protein 7.1 g/dL (6.6-8.7)
== END 2022-08-20 12:54 | disposition home or self-care (01) ==
LOC: LAB 12:56
PROVIDERS: PCP Nurse Practitioner Family; Visit Provider Internal Medicine Medical Oncology
DX: I82.502 Chronic embolism and thrombosis of unspecified deep veins of left lower extremity (principal)
CPT/HCPCS: 36415; 80053; 85025; 85610

== ENCOUNTER 2022-10-31 08:57 | Oncology outpatient (recurring) (ONCR) | payer MEDICAID, SELFPAY ==
[2022-10-31 09:13] LABS: Basophils # 0.1 10^3/uL (0.0-0.1); Eosinophils # 0.2 10^3/uL (0.0-0.8); Eosinophils % 1.9 %; Hematocrit 39.3 % (37.0-47.0); Hemoglobin 12.4 g/dL (11.5-15.3); Lymphocytes # 2.7 10^3/uL (0.8-4.8); Lymphocytes % 34.6 %; Mean Corpuscular HGB Conc 31.6 g/dL (30.0-36.0); Mean Corpuscular Hemoglobin 30.8 pg (28.0-34.0); Mean Corpuscular Volume 97.5 fl (81-99); Mean Platelet Volume 10.2 fL (7.4-10.4); Monocytes # 0.5 10^3/uL (0.2-0.9); Monocytes % 6.6 %; Neutrophils # 4.43 10^3/uL (1.8-7.7); Neutrophils % 55.8 %; Nucleated Red Blood Cells % 0 %; Platelet Count 262 10^3/cmm (130-400); Red Blood Count 4.03 10^6/uL (4.1-5.3); Red Cell Distribution Width 15.8 % (12.1-15.1); White Blood Count 7.9 10^3/uL (4.0-10.0)
[2022-10-31 09:24] LABS: INR 2.11 (0.8-1.2)
== END 2022-11-11 23:59 | disposition home or self-care (01) ==
PROVIDERS: PCP Nurse Practitioner Family; Visit Provider Internal Medicine Medical Oncology
DX: I82.502 Chronic embolism and thrombosis of unspecified deep veins of left lower extremity (principal); I87.002 Postthrombotic syndrome without complications of left lower extremity; Z79.01 Long term (current) use of anticoagulants
CPT/HCPCS: 85025; 85610; 99214

== ENCOUNTER 2023-01-29 11:29 | Oncology outpatient (recurring) (ONCR) | payer MEDICAID, SELFPAY ==
[2023-01-29 12:29] LABS: Free T4 Free Thyroxine 1.25 ng/dL (0.82-1.77); Thyroid Stimulating Hormone 0.58 uIU/mL (0.27-4.20)
== END 2023-02-11 23:59 | disposition home or self-care (01) ==
PROVIDERS: PCP Nurse Practitioner Family; Visit Provider Internal Medicine Medical Oncology
DX: I82.502 Chronic embolism and thrombosis of unspecified deep veins of left lower extremity (principal); I87.002 Postthrombotic syndrome without complications of left lower extremity; Z79.01 Long term (current) use of anticoagulants; M79.7 Fibromyalgia; G89.29 Other chronic pain; M54.50 Low back pain, unspecified; Z79.891 Long term (current) use of opiate analgesic
CPT/HCPCS: 84439; 84443; 85025; 85610; 99214

== ENCOUNTER 2023-02-17 08:28 | Outpatient (CLI) | payer MEDICAID, SELFPAY ==
--- NOTE | 2023-02-17 08:15 | CT_ITS ---
WS: [id number] LDCT LUNG CANCER SCREENING TECHNIQUE: Noncontrast CT of the chest with coronal and sagittal reformatted images. CLINICAL INFORMATION: Lung cancer screening DLP: 61.72 mGy.cm DIvol: Mean CTDIvol: 1.30 (mGy) All CT scans at [facility] use at least one of these dose optimization techniques: automat ed exposure control; mA and/or kV adjustment per patient size (includes targeted exams where dose is matched to clinical indication); or iterative reconstruction. FINDINGS: Lungs are well-aerated. No acute pulmonary infiltrates. No focal pneumonia or pleural fluid . Subpleural nodule RIGHT middle lobe measuring 4.2 mm. Tiny LEFT lower lobe subpleural nodule.a A few calcified granulomas. Moderate spondylitic changes thoracic spine. Mild thoracic curve and kyph osis. Normal caliber thoracic aorta. Aortic calcification. No mediastinal or hilar lymphadenopathy. Calcifi ed mediastinal and RIGHT hilar lymph nodes. No axillary lymphadenopathy. Adrenal glands are normal. Normal GE junction. CT/CT lung screening [id number] IMPRESSION: LUNG-RADS: 1-Negative FOLLOW UP: 12 Month: Continue annual screening with LDCT
== END 2023-02-17 08:29 | disposition home or self-care (01) ==
LOC: RAD 08:32
PROVIDERS: PCP Nurse Practitioner Family; Visit Provider Internal Medicine Medical Oncology
DX: Z12.2 Encounter for screening for malignant neoplasm of respiratory organs (principal); F17.210 Nicotine dependence, cigarettes, uncomplicated; I82.502 Chronic embolism and thrombosis of unspecified deep veins of left lower extremity; M47.816 Spondylosis without myelopathy or radiculopathy, lumbar region; M48.061 Spinal stenosis, lumbar region without neurogenic claudication; R20.2 Paresthesia of skin; S32.028A Other fracture of second lumbar vertebra, initial encounter for closed fracture; X58.XXXA Exposure to other specified factors, initial encounter
CPT/HCPCS: 71271; 99214

== ENCOUNTER 2023-02-27 08:14 | Outpatient (CLI) | payer MEDICAID, SELFPAY ==
--- NOTE | 2023-02-27 08:24 | MM_ITS ---
WS: [id number] BILATERAL SCREENING DIGITAL TOMOSYNTHESIS MAMMOGRAM WITH CAD HISTORY: SCREENING COMPARISON: 02/11/2022, 06/27/2019 Bilateral CC and MLO views with tomosynthesis and synthetic mammography submitted. Computer aided det ection analyzed. Breast composition: There are scattered areas of fibroglandular density. No suspicious masses, microc alcifications or architectural distortion. Breast arterial calcifications. MM/[place] [id number] IMPRESSION: BI-RADS: 2-Benign FOLLOW UP: 1 Year Follow-up
== END 2023-02-27 08:15 | disposition home or self-care (01) ==
PROVIDERS: PCP Nurse Practitioner Family; Visit Provider Internal Medicine Medical Oncology
DX: Z12.31 Encounter for screening mammogram for malignant neoplasm of breast (principal)
CPT/HCPCS: 77063; 77067

== ENCOUNTER 2023-02-27 10:04 | Oncology outpatient (recurring) (ONCR) | payer MEDICAID, SELFPAY ==
[2023-02-27 10:06] VITALS: BP 118/74; PULSE 85; RESP 18; TEMP 36.2; O2SAT 96
[2023-02-27 10:36] LABS: INR 2.74 (0.8-1.2)
== END 2023-03-13 23:59 | disposition home or self-care (01) ==
PROVIDERS: PCP Nurse Practitioner Family; Visit Provider Internal Medicine Medical Oncology
DX: I82.502 Chronic embolism and thrombosis of unspecified deep veins of left lower extremity (principal)
CPT/HCPCS: 36415; 85610

== ENCOUNTER → 2023-03-12 09:28 | Outpatient (BNVA) | payer MEDICAID, SELFPAY | PROVIDERS: PCP Nurse Practitioner Family; Referring Provider Dermatology; Visit Provider Student in an Organized Health Care Education/Training Program | DX: M70.62 Trochanteric bursitis, left hip (principal) | CPT/HCPCS: 20610; 73502; 99204; J3301; J3490 ==

== ENCOUNTER 2023-04-23 10:47 | Oncology outpatient (recurring) (ONCR) | payer MEDICAID, SELFPAY ==
[2023-04-23 10:51] VITALS: BP 127/81; PULSE 92; RESP 18; TEMP 36.4; O2SAT 97
[2023-04-23 10:59] LABS: Basophils # 0.1 10^3/uL (0.0-0.1); Basophils % 0.6 %; Eosinophils # 0.1 10^3/uL (0.0-0.8); Eosinophils % 0.8 %; Hematocrit 40.2 % (37.0-47.0); Hemoglobin 13.2 g/dL (11.5-15.3); Lymphocytes % 27.4 %; Mean Corpuscular HGB Conc 32.8 g/dL (30.0-36.0); Mean Corpuscular Hemoglobin 31.6 pg (28.0-34.0); Mean Corpuscular Volume 96.2 fl (81-99); Mean Platelet Volume 9.3 fL (7.4-10.4); Monocytes # 0.7 10^3/uL (0.2-0.9); Monocytes % 6.4 %; Neutrophils # 7.08 10^3/uL (1.8-7.7); Neutrophils % 64.3 %; Nucleated Red Blood Cells % 0 %; Platelet Count 343 10^3/cmm (130-400); Red Blood Count 4.18 10^6/uL (4.1-5.3); Red Cell Distribution Width 16.3 % (12.1-15.1)
[2023-04-23 11:11] LABS: INR 2.22 (0.8-1.2)
[2023-04-23 11:28] LABS: Alanine Aminotransferase 10 U/L (0-33); Albumin Level 3.7 g/dL (3.5-5.2); Alkaline Phosphatase 77 U/L (35-105); Anion Gap 13.2 (5-19); Aspartate Amino Transferase 16 U/L (0-32); Blood Urea Nitrogen 7 mg/dL (8-23); Calcium 9.2 mg/dL (8.5-10.5); Carbon Dioxide 24 mmol/L (22-29); Chloride 102 mmol/L (98-107); Ferritin 211 ng/mL (15-150); Globulin 2.8 g/dL (1.3-4.6); Glomerular Filtration Rate 84.2 mL/min (90-130); Glucose 87 mg/dL (65-115); Iron 37 ug/dL (37-145); Osmolality Calculated 277 mOsm/kg (285-295); Percent Saturation 15.6 % (20-50); Potassium 4.2 mmol/L (3.5-5.1); Sodium 135 mmol/L (136-145); Total Bilirubin 0.2 mg/dL (0.15-1.2); Total Iron Binding Capacity 236 mcg/dl; Total Protein 6.5 g/dL (6.6-8.7); Unsaturated Iron Binding 199 ug/dL (112-347)
== END 2023-05-14 23:59 | disposition home or self-care (01) ==
PROVIDERS: PCP Nurse Practitioner Family; Visit Provider Internal Medicine Medical Oncology
DX: I82.502 Chronic embolism and thrombosis of unspecified deep veins of left lower extremity (principal); I87.002 Postthrombotic syndrome without complications of left lower extremity; G89.4 Chronic pain syndrome; D50.9 Iron deficiency anemia, unspecified; Z79.01 Long term (current) use of anticoagulants; Z79.891 Long term (current) use of opiate analgesic; Z79.899 Other long term (current) drug therapy
CPT/HCPCS: 36415; 80053; 82728; 83540; 83550; 85025; 85610; 99214

== ENCOUNTER → 2023-05-05 07:36 | Outpatient (BNVA) | payer MEDICAID, SELFPAY | PROVIDERS: PCP Nurse Practitioner Family; Visit Provider Otolaryngology | DX: E04.1 Nontoxic single thyroid nodule; H66.93 Otitis media, unspecified, bilateral; H60.93 Unspecified otitis externa, bilateral; H91.93 Unspecified hearing loss, bilateral; E04.2 Nontoxic multinodular goiter; J34.2 Deviated nasal septum | CPT/HCPCS: 99203 ==

== ENCOUNTER → 2023-07-21 09:06 | Outpatient (BNVA) | payer MEDICAID, SELFPAY | PROVIDERS: PCP Nurse Practitioner Family; Referring Provider Otolaryngology; Visit Provider Internal Medicine | DX: E04.2 Nontoxic multinodular goiter (principal); R53.83 Other fatigue; Z80.8 Family history of malignant neoplasm of other organs or systems; R13.10 Dysphagia, unspecified; D50.9 Iron deficiency anemia, unspecified; Z86.718 Personal history of other venous thrombosis and embolism | CPT/HCPCS: 99204 ==

== ENCOUNTER 2023-07-29 13:26 | Oncology outpatient (recurring) (ONCR) | payer MEDICAID, SELFPAY ==
[2023-07-29 13:35] VITALS: BP 149/91; PULSE 96; RESP 16; TEMP 36.6; O2SAT 97
[2023-07-29 13:48] LABS: Basophils # 0.1 10^3/uL (0.0-0.1); Eosinophils # 0.2 10^3/uL (0.0-0.8); Eosinophils % 1.6 %; Hematocrit 37.3 % (36-47); Lymphocytes # 3.7 10^3/uL (0.8-4.8); Lymphocytes % 37.4 %; Mean Corpuscular HGB Conc 31.9 g/dL (30-55); Mean Corpuscular Hemoglobin 31.1 pg (27-33); Mean Corpuscular Volume 97.4 fl (85-98); Mean Platelet Volume 10.1 fL (7.4-10.4); Monocytes # 0.6 10^3/uL (0.2-0.9); Monocytes % 6.6 %; Neutrophils % 53.2 %; Nucleated Red Blood Cells % 0 %; Platelet Count 297 10^3/cmm (157-399); Red Blood Count 3.83 10^6/uL (3.85-5.65); Red Cell Distribution Width 14.8 % (12.1-15.1); White Blood Count 9.77 10^3/uL (3.29-11.43)
[2023-07-29 13:59] LABS: INR 1.32 (0.8-1.2)
[2023-07-29 14:04] LABS: Alanine Aminotransferase 9 U/L (0-33); Albumin Level 4.1 g/dL (3.5-5.2); Alkaline Phosphatase 74 U/L (35-105); Anion Gap 14.4 (5-19); Aspartate Amino Transferase 16 U/L (0-32); Blood Urea Nitrogen 9 mg/dL (8-23); Calcium 9.3 mg/dL (8.5-10.5); Carbon Dioxide 22 mmol/L (22-29); Chloride 101 mmol/L (98-107); Ferritin 209 ng/mL (15-150); Globulin 2.7 g/dL (1.3-4.6); Glomerular Filtration Rate 100.6 mL/min (90-130); Glucose 107 mg/dL (65-115); Iron 48 ug/dL (37-145); Osmolality Calculated 277 mOsm/kg (285-295); Percent Saturation 18.9 % (20-50); Potassium 3.4 mmol/L (3.5-5.1); Sodium 134 mmol/L (136-145); Total Bilirubin 0.2 mg/dL (0.15-1.2); Total Iron Binding Capacity 253 mcg/dl; Total Protein 6.8 g/dL (6.6-8.7); Unsaturated Iron Binding 205 ug/dL (112-347)
== END 2023-08-13 23:59 | disposition home or self-care (01) ==
PROVIDERS: Nurse Practitioner Family; PCP Nurse Practitioner Family; Visit Provider Internal Medicine Medical Oncology
DX: I82.502 Chronic embolism and thrombosis of unspecified deep veins of left lower extremity (principal); I87.002 Postthrombotic syndrome without complications of left lower extremity; Z79.01 Long term (current) use of anticoagulants; G89.29 Other chronic pain; Z79.899 Other long term (current) drug therapy
CPT/HCPCS: 36415; 80053; 82728; 83540; 83550; 85025; 85610

== ENCOUNTER 2023-07-29 16:21 | Outpatient (CLI) | payer MEDICAID, SELFPAY ==
--- NOTE | 2023-07-29 16:00 | USR_ITS ---
PROCEDURE INFORMATION: Exam: US Soft Tissue Head and Neck, Thyroid Exam date and time: 07/29/2023 4:25 PM Age: 62 years old Clinical indication: Other: Thyroid nodule, tirads for nodule TECHNIQUE: Imaging protocol: Real-time ultrasound scan of the neck with image documentation. Exam focused on the thyroid. COMPARISON: US thyroid [id number] 10/09/2017 12:48 PM FINDINGS: Right thyroid lobe: Heterogeneous echotexture. Right lobe measures 4.4 x 2.0 x 2.2 cm. Vascularity is normal. Left thyroid lobe: Heterogeneous echotexture. Left lobe measures 5.2 x 2.3 x 1.8 cm. Vascularity is normal. There is a nodule inferiorly, measuring 0.8 x 0.6 x 1.1 cm. This is mixed cystic and solid and isoechoic. Margins are smooth without echogenic foci. This is a TI-RADS 2 lesion. Isthmus: Width is 1.1 cm. Within the isthmus there is a nodule measuring 1.6 x 1.1 x 1.6 cm. Nodule is mixed cystic and solid and hypoechoic with smooth margins. This is a TI-RADS 3 lesion. US/US thyroid [id number] IMPRESSION: TI-RADS 3 lesion in the thyroid isthmus. Follow-up is recommended at 1, 3, and 5 years. PI-RADS 2 lesion in the left lobe of the thyroid gland which does not warrant further surveillance. TI-RADS category TR3, Mildly Suspicious. Follow-up thyroid ultrasound at 1, 3, and 5 years is recommended. (Reference: Maranda) References: Maranda FN, Enzo GIBBS, Ulises LARSEN et al. ACR Thyroid Imaging, Reporting and Data System (TI-RADS): White Paper of the ACR TI-RADS Committee. J Am [place] Radiol. 2017; 14: 587-595.
== END 2023-07-29 16:22 | disposition home or self-care (01) ==
PROVIDERS: PCP Nurse Practitioner Family; Visit Provider Internal Medicine
DX: E04.2 Nontoxic multinodular goiter (principal); E07.9 Disorder of thyroid, unspecified; R13.10 Dysphagia, unspecified; I82.502 Chronic embolism and thrombosis of unspecified deep veins of left lower extremity; R53.82 Chronic fatigue, unspecified; R06.02 Shortness of breath; R51.9 Headache, unspecified; G89.29 Other chronic pain; Z80.8 Family history of malignant neoplasm of other organs or systems; Z79.01 Long term (current) use of anticoagulants; Z72.0 Tobacco use
CPT/HCPCS: 76536; 99214

== ENCOUNTER → 2023-09-24 13:56 | Outpatient (BNVA) | payer MEDICARE, MEDICAID, SELFPAY | PROVIDERS: PCP Nurse Practitioner Family; Visit Provider Physician Assistant | DX: M70.62 Trochanteric bursitis, left hip | CPT/HCPCS: 20610; 99213; J3301; J3490 ==

== ENCOUNTER 2023-11-02 11:45 | Oncology outpatient (recurring) (ONCR) | payer MEDICARE, MEDICAID, SELFPAY ==
[2023-11-02 12:00] LABS: Basophils # 0.1 10^3/uL (0.0-0.1); Basophils % 0.7 %; Eosinophils # 0.2 10^3/uL (0.0-0.8); Eosinophils % 1.3 %; Lymphocytes # 3.3 10^3/uL (0.8-4.8); Lymphocytes % 29.4 %; Mean Corpuscular HGB Conc 32.4 g/dL (30-55); Mean Corpuscular Hemoglobin 31.4 pg (27-33); Mean Corpuscular Volume 96.9 fl (85-98); Mean Platelet Volume 9.3 fL (7.4-10.4); Monocytes # 0.8 10^3/uL (0.2-0.9); Monocytes % 7.1 %; Neutrophils # 6.91 10^3/uL (1.8-7.7); Neutrophils % 61.1 %; Nucleated Red Blood Cells % 0 %; Platelet Count 334 10^3/cmm (157-399); Red Blood Count 4.23 10^6/uL (3.85-5.65); Red Cell Distribution Width 16.2 % (12.1-15.1)
[2023-11-02 12:17] LABS: Alanine Aminotransferase 11 U/L (0-33); Alkaline Phosphatase 85 U/L (35-105); Aspartate Amino Transferase 15 U/L (0-32); Blood Urea Nitrogen 10 mg/dL (8-23); Carbon Dioxide 24 mmol/L (22-29); Chloride 101 mmol/L (98-107); Globulin 2.9 g/dL (1.3-4.6); Glomerular Filtration Rate 100.3 mL/min (90-130); Glucose 100 mg/dL (65-115); Osmolality Calculated 277 mOsm/kg (285-295); Sodium 134 mmol/L (136-145); Total Bilirubin 0.2 mg/dL (0.15-1.2); Total Protein 6.9 g/dL (6.6-8.7)
[2023-11-02 14:33] LABS: INR 1.94 (0.8-1.2)
== END 2023-11-12 23:59 | disposition home or self-care (01) ==
PROVIDERS: Internal Medicine; Nurse Practitioner Family; PCP Nurse Practitioner Family; Visit Provider Internal Medicine Medical Oncology
DX: Z79.01 Long term (current) use of anticoagulants; G89.29 Other chronic pain; Z79.899 Other long term (current) drug therapy; I82.402 Acute embolism and thrombosis of unspecified deep veins of left lower extremity; F17.210 Nicotine dependence, cigarettes, uncomplicated
CPT/HCPCS: 36415; 80053; 85025; 85610; 99213

== ENCOUNTER 2024-01-08 08:53 | Oncology outpatient (recurring) (ONCR) | payer MEDICARE, MEDICAID, SELFPAY ==
[2024-01-08 09:07] LABS: Basophils # 0.1 10^3/uL (0.0-0.1); Basophils % 1.1 %; Eosinophils # 0.1 10^3/uL (0.0-0.8); Eosinophils % 1.5 %; Hematocrit 39.2 % (36-47); Mean Corpuscular HGB Conc 32.7 g/dL (30-55); Mean Corpuscular Hemoglobin 31.9 pg (27-33); Mean Corpuscular Volume 97.8 fl (85-98); Mean Platelet Volume 9.9 fL (7.4-10.4); Monocytes # 0.7 10^3/uL (0.2-0.9); Neutrophils # 5.13 10^3/uL (1.8-7.7); Neutrophils % 56.2 %; Nucleated Red Blood Cells % 0 %; Platelet Count 293 10^3/cmm (157-399); Red Blood Count 4.01 10^6/uL (3.85-5.65); Red Cell Distribution Width 15.5 % (12.1-15.1); White Blood Count 9.13 10^3/uL (3.29-11.43)
[2024-01-08 09:25] LABS: INR 1.91 (0.8-1.2)
[2024-01-08 09:30] LABS: Alanine Aminotransferase 10 U/L (0-33); Albumin Level 4.1 g/dL (3.5-5.2); Alkaline Phosphatase 86 U/L (35-105); Anion Gap 14.5 (5-19); Aspartate Amino Transferase 17 U/L (0-32); Blood Urea Nitrogen 10 mg/dL (8-23); Calcium 9.2 mg/dL (8.5-10.5); Carbon Dioxide 23 mmol/L (22-29); Chloride 101 mmol/L (98-107); Globulin 3.1 g/dL (1.3-4.6); Glomerular Filtration Rate 100.3 mL/min (90-130); Glucose 98 mg/dL (65-115); Osmolality Calculated 277 mOsm/kg (285-295); Potassium 4.5 mmol/L (3.5-5.1); Sodium 134 mmol/L (136-145); Total Bilirubin 0.2 mg/dL (0.15-1.2); Total Protein 7.2 g/dL (6.6-8.7)
== END 2024-01-12 23:59 | disposition home or self-care (01) ==
PROVIDERS: Internal Medicine; PCP Nurse Practitioner Family; Visit Provider Internal Medicine Medical Oncology
DX: I82.502 Chronic embolism and thrombosis of unspecified deep veins of left lower extremity (principal); Z79.01 Long term (current) use of anticoagulants; R53.83 Other fatigue; F17.210 Nicotine dependence, cigarettes, uncomplicated; Z90.49 Acquired absence of other specified parts of digestive tract; G89.29 Other chronic pain
CPT/HCPCS: 36415; 80053; 85025; 85610; 99213

== ENCOUNTER → 2024-02-02 08:05 | Outpatient (BNVA) | payer MEDICARE, MEDICAID, SELFPAY | PROVIDERS: PCP Nurse Practitioner Family; Visit Provider Physician Assistant | DX: M70.62 Trochanteric bursitis, left hip (principal); Z79.899 Other long term (current) drug therapy | CPT/HCPCS: 20610; 99213; J3301; J3490 ==

== ENCOUNTER 2024-05-20 08:06 | Oncology outpatient (recurring) (ONCR) | payer MEDICARE, MEDICAID, SELFPAY ==
[2024-05-20 09:07] LABS: Basophils # 0.1 10^3/uL (0.0-0.1); Basophils % 0.9 %; Eosinophils # 0.1 10^3/uL (0.0-0.8); Eosinophils % 1.6 %; Hematocrit 37.8 % (36-47); Lymphocytes # 2.5 10^3/uL (0.8-4.8); Mean Corpuscular Hemoglobin 31.4 pg (27-33); Mean Corpuscular Volume 98.2 fl (85-98); Mean Platelet Volume 9.8 fL (7.4-10.4); Monocytes # 0.7 10^3/uL (0.2-0.9); Monocytes % 8.5 %; Neutrophils # 4.59 10^3/uL (1.8-7.7); Neutrophils % 57.6 %; Nucleated Red Blood Cells % 0 %; Platelet Count 305 10^3/cmm (157-399); Red Blood Count 3.85 10^6/uL (3.85-5.65); Red Cell Distribution Width 15.9 % (12.1-15.1); White Blood Count 7.97 10^3/uL (3.29-11.43)
[2024-05-20 09:22] LABS: INR 2.59 (0.8-1.2)
[2024-05-20 09:25] LABS: Alanine Aminotransferase 9 U/L (0-33); Alkaline Phosphatase 99 U/L (35-105); Anion Gap 14.4 (5-19); Aspartate Amino Transferase 17 U/L (0-32); Blood Urea Nitrogen 7 mg/dL (8-23); Calcium 8.5 mg/dL (8.5-10.5); Carbon Dioxide 23 mmol/L (22-29); Chloride 101 mmol/L (98-107); Globulin 2.9 g/dL (1.3-4.6); Glomerular Filtration Rate 100.3 mL/min (90-130); Glucose 124 mg/dL (65-115); Osmolality Calculated 277 mOsm/kg (285-295); Potassium 4.4 mmol/L (3.5-5.1); Sodium 134 mmol/L (136-145); Total Bilirubin 0.3 mg/dL (0.15-1.2); Total Protein 6.9 g/dL (6.6-8.7)
== END 2024-06-13 23:59 | disposition home or self-care (01) ==
PROVIDERS: Nurse Practitioner Family; PCP Nurse Practitioner Family; Visit Provider Internal Medicine Medical Oncology
DX: I82.502 Chronic embolism and thrombosis of unspecified deep veins of left lower extremity (principal); Z79.01 Long term (current) use of anticoagulants; G89.29 Other chronic pain; Z79.899 Other long term (current) drug therapy
CPT/HCPCS: 20610; 36415; 80053; 85025; 85610; 99213; J3301; J3490

== ENCOUNTER → 2024-07-14 08:15 | Outpatient (BNVA) | payer MEDICARE, MEDICAID, SELFPAY | PROVIDERS: PCP Nurse Practitioner Family; Visit Provider Physician Assistant | DX: M70.62 Trochanteric bursitis, left hip (principal) | CPT/HCPCS: 20610; 99213; J3301; J3490 ==

== ENCOUNTER 2024-08-22 09:36 | Oncology outpatient (recurring) (ONCR) | payer MEDICARE, MEDICAID, SELFPAY ==
[2024-08-22 10:06] LABS: Basophils # 0.1 10^3/uL (0.0-0.1); Basophils % 0.8 %; Eosinophils # 0.1 10^3/uL (0.0-0.8); Eosinophils % 1.2 %; Hematocrit 40.7 % (36-47); Lymphocytes # 2.3 10^3/uL (0.8-4.8); Lymphocytes % 24.2 %; Mean Corpuscular HGB Conc 32.2 g/dL (30-55); Mean Corpuscular Volume 96.4 fl (85-98); Mean Platelet Volume 9.5 fL (7.4-10.4); Monocytes # 0.8 10^3/uL (0.2-0.9); Monocytes % 8.6 %; Neutrophils # 6.26 10^3/uL (1.8-7.7); Neutrophils % 64.9 %; Nucleated Red Blood Cells % 0 %; Platelet Count 325 10^3/cmm (157-399); Red Blood Count 4.22 10^6/uL (3.85-5.65); Red Cell Distribution Width 16.1 % (12.1-15.1); White Blood Count 9.66 10^3/uL (3.29-11.43)
[2024-08-22 10:22] LABS: Alanine Aminotransferase 9 U/L (0-33); Albumin Level 4.2 g/dL (3.5-5.2); Alkaline Phosphatase 88 U/L (35-105); Anion Gap 15.3 (5-19); Aspartate Amino Transferase 16 U/L (0-32); Blood Urea Nitrogen 11 mg/dL (8-23); Calcium 9.3 mg/dL (8.5-10.5); Carbon Dioxide 22 mmol/L (22-29); Chloride 100 mmol/L (98-107); Globulin 3.2 g/dL (1.3-4.6); Glomerular Filtration Rate 100.3 mL/min (90-130); Glucose 87 mg/dL (65-115); Osmolality Calculated 275 mOsm/kg (285-295); Potassium 4.3 mmol/L (3.5-5.1); Sodium 133 mmol/L (136-145); Total Bilirubin 0.3 mg/dL (0.15-1.2); Total Protein 7.4 g/dL (6.6-8.7)
[2024-08-22 12:49] LABS: Thyroid Stimulating Hormone 0.51 uIU/mL (0.27-4.20)
== END 2024-09-13 23:59 | disposition home or self-care (01) ==
PROVIDERS: Nurse Practitioner Family; PCP Nurse Practitioner Family; Visit Provider Internal Medicine Medical Oncology
DX: I82.502 Chronic embolism and thrombosis of unspecified deep veins of left lower extremity (principal); Z79.01 Long term (current) use of anticoagulants; G89.29 Other chronic pain; Z79.899 Other long term (current) drug therapy; Z53.9 Procedure and treatment not carried out, unspecified reason; R53.83 Other fatigue
CPT/HCPCS: 36415; 80053; 84443; 85025; 85610; 99213

== ENCOUNTER 2024-09-29 11:02 | Oncology outpatient (recurring) (ONCR) | payer MEDICARE, MEDICAID, SELFPAY ==
[2024-09-29 12:05] LABS: INR 1.58 (0.8-1.2)
== END 2024-10-14 23:59 | disposition home or self-care (01) ==
LOC: ONCMED 11:02
PROVIDERS: Nurse Practitioner; PCP Nurse Practitioner Family; Visit Provider Internal Medicine Medical Oncology
DX: I82.502 Chronic embolism and thrombosis of unspecified deep veins of left lower extremity (principal); G89.29 Other chronic pain; R53.83 Other fatigue; Z79.01 Long term (current) use of anticoagulants; Z79.899 Other long term (current) drug therapy; Z53.9 Procedure and treatment not carried out, unspecified reason
CPT/HCPCS: 36415; 85610

== ENCOUNTER → 2024-11-04 08:23 | Outpatient (BNVA) | payer MEDICARE, MEDICAID, SELFPAY | PROVIDERS: PCP Nurse Practitioner Family; Visit Provider Physician Assistant | DX: M25.552 Pain in left hip (principal); M70.62 Trochanteric bursitis, left hip | CPT/HCPCS: 20610; 73502; 99213; J3301; J3490 ==

== ENCOUNTER 2024-11-21 12:44 | Oncology outpatient (recurring) (ONCR) | payer MEDICARE, MEDICAID, SELFPAY ==
[2024-11-21 13:16] LABS: Basophils # 0.1 10^3/uL (0.0-0.1); Basophils % 0.5 %; Eosinophils # 0.1 10^3/uL (0.0-0.8); Hematocrit 38.4 % (36-47); Lymphocytes % 28.6 %; Mean Corpuscular Hemoglobin 30.4 pg (27-33); Mean Platelet Volume 9.8 fL (7.4-10.4); Monocytes # 0.7 10^3/uL (0.2-0.9); Monocytes % 6.2 %; Neutrophils # 6.66 10^3/uL (1.8-7.7); Neutrophils % 63.4 %; Nucleated Red Blood Cells % 0 %; Platelet Count 295 10^3/cmm (157-399); Red Blood Count 4.04 10^6/uL (3.85-5.65); Red Cell Distribution Width 16.5 % (12.1-15.1); White Blood Count 10.49 10^3/uL (3.29-11.43)
[2024-11-21 13:26] LABS: INR 2.19 (0.8-1.2)
[2024-11-21 13:30] LABS: Alanine Aminotransferase 11 U/L (0-33); Albumin Level 3.9 g/dL (3.5-5.2); Alkaline Phosphatase 72 U/L (35-105); Aspartate Amino Transferase 14 U/L (0-32); Blood Urea Nitrogen 13 mg/dL (8-23); Calcium 9.2 mg/dL (8.5-10.5); Carbon Dioxide 23 mmol/L (22-29); Chloride 101 mmol/L (98-107); Creatinine Clr Calc Pharmacy 71.0294; Globulin 2.4 g/dL (1.3-4.6); Glomerular Filtration Rate 83.7 mL/min (90-130); Glucose 99 mg/dL (65-115); Osmolality Calculated 278 mOsm/kg (285-295); Sodium 134 mmol/L (136-145); Total Bilirubin 0.2 mg/dL (0.15-1.2); Total Protein 6.3 g/dL (6.6-8.7)
== END 2024-12-12 23:59 | disposition home or self-care (01) ==
PROVIDERS: Nurse Practitioner Family; PCP Nurse Practitioner Family; Visit Provider Internal Medicine Medical Oncology
DX: I82.502 Chronic embolism and thrombosis of unspecified deep veins of left lower extremity (principal); Z79.01 Long term (current) use of anticoagulants; F17.210 Nicotine dependence, cigarettes, uncomplicated; G89.29 Other chronic pain; E04.1 Nontoxic single thyroid nodule
CPT/HCPCS: 36415; 80053; 85025; 85610; 99214

== ENCOUNTER → 2025-02-07 08:57 | Outpatient (BNVA) | payer MEDICARE, MEDICAID, SELFPAY | PROVIDERS: PCP Nurse Practitioner Family; Visit Provider Physician Assistant | DX: M70.62 Trochanteric bursitis, left hip (principal); Z71.89 Other specified counseling | CPT/HCPCS: 20610; 99213; J3301; J9999 ==

== ENCOUNTER 2025-04-28 21:40 | Emergency (ER) | payer MEDICARE, MEDICAID, SELFPAY ==
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
[2025-04-28 21:47] VITALS: BP 152/88; PULSE 84; RESP 17; TEMP 36.3; O2SAT 99; BMI 27.8
--- NOTE | 2025-04-28 21:52 | XRR_ITS ---
PROCEDURE INFORMATION: Exam: XR Left Foot Exam date and time: 04/28/2025 9:57 PM Age: 64 years old Clinical indication: Pain; HX of FX of left foot. ; Additional info: Pain/swelling TECHNIQUE: Imaging protocol: Radiologic exam of the left foot. Views: 3 or more views. COMPARISON: US soft tissue/extremity [id number] 10/01/2020 2:47 PM FINDINGS: Bones/joints: Normal. No fracture or dislocation. Soft tissues: Normal. No radiopaque foreign body seen. XR/XR foot LT min 3V* [id number] IMPRESSION: No acute findings.
--- NOTE | 2025-04-28 22:24 | USR_ITS ---
PROCEDURE INFORMATION: Exam: US Duplex Left Lower Extremity Veins, Limited Exam date and time: 04/28/2025 11:58 PM Age: 64 years old Clinical indication: Pain; Leg, lower; Left; Patient states she has had a history of blood clots since she was 11 years old. Patient is on blood thinner. ; Additional info: Left lower extremity pain/swelling, HX of clots TECHNIQUE: Imaging protocol: Real-time duplex ultrasound of the left extremity with 2-D leo scale, color Doppler flow and spectral waveform analysis including responses to compression and other maneuvers (when performed) with image documentation. Limited exam focused on the left lower extremity veins. COMPARISON: US soft tissue/extremity [id number] 10/01/2020 2:47 PM FINDINGS: Left deep veins: There is echogenic non occlusive material intraluminally within the left common femoral vein as well as loops left superficial femoral vein extending to the popliteal. The findings suggest the appearance of recanalized thrombus from prior DVT. The involved veins were compressible and patent. Superficial veins: Greater saphenous vein at the saphenofemoral junction is patent without thrombus. Soft tissues: Unremarkable. US/[place] [id number] IMPRESSION: No findings to suggest acute DVT Echogenic material in the lumen of the left lower extremity veins as above noted likely representing recanalized thrombus from prior episode of DVT.
[2025-04-28 22:26] VITALS: BP 130/83; O2SAT 97
--- NOTE | 2025-04-28 23:06 | W.ED.EXTPRO ---
Documented by User: MONICA Gleason 04/29/25 13:15 HPI - Extremity Problem General: Chief complaint: Extremity Problem,Nontraumatic Stated complaint: Lt foot thinks broken Time Seen by Provider: 04/28/25 21:53 Source: patient Mode of arrival: ambulatory Limitations: no limitations History of Present Illness: Patient is a 64-year-old female who presents the emergency department complaining of left foot and ankle pain. She denies any trauma, but thinks that she broke it due to the amount of pain that began a few hours prior to coming in. She has a history of numerous DVT in the left lower extremity, and is on warfarin. She is denying any new chest pain or shortness of breath. She states the pain is primarily to the dorsum of the left foot but does feel it in the ankle as well as into the calf. She states that her left lower extremity is chronically swollen compared to the right. No fever, coolness to the extremity, paralysis, or other symptoms reported at this time. MD Complaint: extremity pain and extremity swelling Onset (ago): hour(s) Pain Consistency: constant Location: left and lower extremity Radiation: proximal Exacerbating factors: range of motion, weight bearing and walking Associated symptoms: Deny chest pain, fever(s) or rash Context: history of DVT Related Data Home Medications ?Medication ?Instructions ?Recorded ?Confirmed albuterol sulfate 90 mcg/actuation 2 puff inhalation Q4H PRN 03/24/20 02/07/25 aerosol inhaler (ProAir HFA) Shortness Of Breath fluticasone propionate 50 2 spray intranasal DAILY PRN 03/24/20 02/07/25 mcg/actuation nasal Allergy Symptoms spray,suspension Acidophilus 1 cap PO BID 07/10/20 02/07/25 pseudoephedrine HCl 30 mg tablet 30 mg PO DAILY PRN Sinus Symptoms 08/10/20 02/07/25 (Sudogest) hydrocodone 10 mg-acetaminophen 1 tab PO BID PRN 07/29/23 02/07/25 325 mg tablet fluticasone 250 mcg-salmeterol 50 inhalation 08/22/24 02/07/25 mcg/dose blistr powdr for inhalation Previous Rx's ?Medication ?Instructions ?Recorded cyclobenzaprine 10 mg tablet 10 mg PO TID PRN muscle spasm #60 02/17/23 tabs warfarin 10 mg tablet See Rx Instructions .Route 09/05/24 .COMPLEX #30 tabs warfarin 7.5 mg tablet 7.5 mg PO DAILY #30 tabs 09/22/24 fluoxetine 20 mg capsule See Rx Instructions .Route 11/14/24 .COMPLEX #90 caps Allergies Allergy/AdvReac Type Severity Reaction Status Date / Time prochlorperazine (From Allergy ADR-Anxiety Verified 02/07/25 09:08 Compazine) Review of Systems General: Reports: 10 or more systems reviewed and unremarkable except in HPI and below Const: Denies: fever(s) or chills Card: Denies: chest pain Resp: Denies: dyspnea or productive cough GI: Denies: abdominal pain, nausea, vomiting or diarrhea : Denies: flank pain Musc: Reports: extremity pain and extremity swelling; Denies: neck pain, back pain, joint pain, joint swelling, joint redness, joint warmth, limited range of motion or muscle weakness Skin/Breast: Denies: rash Neuro: Denies: headache(s), numbness in extremities or weakness in extremities PFSH ED PFSH: Medical History History of pancreatitis Multinodular goiter Anxiety and depression Fibromyalgia Degenerative arthritis History of iron deficiency anemia Helicobacter pylori gastritis Facet arthritis, degenerative, 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 Surgical History History of total right hip arthroplasty (02/2016) History of total left hip arthroplasty (10/2012) Status post colonoscopy History of appendectomy History of hysterectomy Family History Sister Cancer bone Dementia Brother Cancer colon Family/Other Cancer breast Other CAD (coronary artery disease) Hypertension Myocardial infarction Denies family history of Diabetes Clotting disorder Hyperlipidemia Psychiatric illness Chronic kidney disease (CKD) Suicide Anesthesia complication Bleeding disorder Lung disease Stroke Social History Smoking and tobacco/nicotine status: current every day tobacco/nicotine user cigarettes Packs smoked per day: 0.5 Alcohol intake: never Substance/Drug Use: never Lives independently: Yes Physical Exam Const: COMMON NORMALS: no acute distress, patient oriented x3, no limitations, healthy appearing, alert and well nourished HENMT: COMMON NORMALS: normocephalic and atraumatic HEAD & SCALP: normocephalic and atraumatic Neck/C-Spine: COMMON NORMALS: full ROM, supple and no meningeal signs Resp: COMMON NORMALS: normal respiratory effort, No use of accessory muscles and clear to auscultation bilaterally AUSCULTATION: clear to auscultation bilaterally Cardio: COMMON NORMALS: regular rate and regular rhythm RATE: regular rate RHYTHM: regular rhythm Extremity: COMMON NORMALS: full ROM and capillary refill normal NARRATIVE EXTREMITY EXAM: The left lower extremity is notably more edematous compared to the right. There are tortuous varicosities noted to the dorsum of the left foot. Tenderness to palpation that is easily reproducible to the dorsum of the left foot extending into the left calf. Distal sensations intact, I am able to palpate dorsalis pedis and posterior tibial pulse. There is no obvious skin temperature change between the left and right lower extremity, though there is mild pallor noted of the left foot. Neuro: COMMON NORMALS: patient oriented x3, moves all extremities, no focal motor deficits and no sensory deficits noted SENSORIUM/ORIENTATION: Yes alert MENINGEAL SIGNS: Yes no meningeal signs Course Vital Signs: Vital signs: Vital Signs Temperature 97.4 F L 04/28/25 21:47 Pulse Rate 82 04/29/25 02:08 Respiratory Rate 17 04/29/25 02:08 Blood Pressure 131/82 04/29/25 02:08 Pulse Oximetry 96 04/29/25 02:08 Oxygen Delivery Me thod Room Air 04/29/25 00:00 MDM - Extremity (Nontraumatic) Medical Decision Making Patient presenting with left lower extremity pain suddenly an hour prehospital, history of multiple DVT on the left leg and she takes 10 mg of warfarin. Her INR is therapeutic with her warfarin use, 2.54 here in the emergency department for DVT prophylaxis. X-ray of foot was negative. On exam there was no outward sign of injury, and nonspecific tenderness to palpation diffusely. There was obvious tortuous varicosities of the left lower extremity, and her left lower extremity is reportedly chronically swollen when compared to the right. Though pulses were palpable. Venous duplex showing chronic DVT, and though my suspicion was low for arterial occlusion, this was ordered and negative as well. Patient was given pain medication here in the ED, and prior to discharge states that the pain had felt much better. She uses no compressive device, I encouraged her to start doing this and we will wrap her prior to discharge. She was found with a couple doses of very low-dose [place] to take for breakthrough pain only, and instructed to follow-up with regular provider for any further evaluation. Noted to be ambulatory out of the ED. Lab Data 04/28/25 23:09 04/28/25 23:09 Radiology Impressions Foot X-Ray 04/28/25 21:52 IMPRESSION: No acute findings. Venous Duplex 04/28/25 22:24 IMPRESSION: No findings to suggest acute DVT Echogenic material in the lumen of the left lower extremity veins as above noted likely representing recanalized thrombus from prior episode of DVT. Duplex Scan Lower Extremity Artery 04/29/25 00:14 IMPRESSION: No stenosis or occlusion. Laboratory Results WBC 12.47 10^3/uL (3.29-11.43) H 04/28/25 23:09 RBC 3.52 10^6/uL (3.85-5.65) L 04/28/25 23:09 Hgb 11.20 g/dL (11.27-16.99) L 04/28/25 23:09 Hct 34.2 % (36-47) L 04/28/25 23:09 MCV 97.2 fl (85-98) 04/28/25 23:09 MCH 31.8 pg (27-33) 04/28/25 23: MCHC 32.7 g/dL (30-55) 04/28/25 23:09 RDW 15.8 % (12.1-15.1) H 04/28/25 23:09 Plt Count 272 10^3/cmm (157-399) 04/28/25 23:09 MPV 9.9 fL (7.4-10.4) 04/28/25 23:09 Neut % (Auto) 62.7 % 04/28/25 23:09 Lymph % (Auto) 25.7 % 04/28/25 23:09 Moca % (Auto) 9.1 % 04/28/25 23: Eos % (Auto) 1.6 % 04/28/25 23: Baso % (Auto) 0.6 % 08/15/25 23:09 Neut # (Auto) 7.82 10^3/uL (1.8-7.7) H 04/28/25 23:09 Lymph # (Auto) 3.2 10^3/uL (0.8-4.8) 04/28/25 23:09 Moca # (Auto) 1.1 10^3/uL (0.2-0.9) H 04/28/25 23:09 Eos # (Auto) 0.2 10^3/uL (0.0-0.8) 04/28/25 23:09 Baso # (Auto) 0.1 10^3/uL (0.0-0.1) 04/28/25 23:09 Nucleated RBC % (auto) 0 % 04/28/25 23:09 Nucleated RBCs # 0.0 /100WBC 04/28/25 23:09 PT 28.80 SECONDS (12.1-14.9) H 04/28/25 23:09 INR 2.54 (0.8-1.2) H 04/28/25 23:09 Sodium 132 mmol/L (136-145) L 04/28/25 23:09 Potassium 4.2 mmol/L (3.5-5.1) 04/28/25 23:09 Chloride 98 mmol/L (98-107) 04/28/25 23:09 Carbon Dioxide 23 mmol/L (22-29) 04/28/25 23:09 Anion Gap 15.2 (5-19) 04/28/25 23:09 BUN 13 mg/dL (8-23) 04/28/25 23:09 Creatinine 0.6 mg/dL (0.5-0.9) 04/28/25 23:09 GFR Calculation 100.0 mL/min (90-130) 04/28/25 23:09 Glucose 99 mg/dL (65-115) 04/28/25 23:09 Calculated Osmolality 274 mOsm/kg (285-295) L 04/28/25 23:09 Calcium 9.0 mg/dL (8.5-10.5) 04/28/25 23:09 Total Bilirubin 0.3 mg/dL (0.15-1.2) 04/28/25 23:09 AST 16 U/L (0-32) 04/28/25 23:09 ALT 10 U/L (0-33) 04/28/25 23:09 Alkaline Phosphatase 79 U/L (35-105) 04/28/25 23:09 Total Protein 6.5 g/dL (6.6-8.7) L 04/28/25 23:09 Albumin 3.8 g/dL (3.5-5.2) 04/28/25 23:09 Globulin 2.7 g/dL (1.3-4.6) 04/28/25 23:09 All radiology interpretation(s) finalized by discharge Discharge Plan Discharge Patient Disposition: Home Clinical Impression: Acute pain of left lower extremity Chronic deep vein thrombosis of left lower extremity Qualifiers: Affected thrombotic vein of extremity: unspecified vein of extremity Qualified Code(s): I82.502 - Chronic embolism and thrombosis of unspecified deep veins of left lower extremity Condition: Stable Prescriptions: No Action methylprednisolone acetate [Depo-Medrol] 40 mg/mL suspension 40 mg Infiltration ONCE Qty: 1 0RF lidocaine (PF) 20 mg/mL (2 %) solution 20 mg Infiltration ONCE Qty: 1 0RF cyclobenzaprine 10 mg tablet 10 mg PO TID PRN (Reason: muscle spasm) Qty: 60 0RF hydrocodone-acetaminophen 10-325 mg tablet 1 tab PO BID PRN fluticasone propion-salmeterol 250-50 mcg/dose blister with device inhalation warfarin 10 mg tablet See Rx Instructions .ROUTE .COMPLEX Qty: 30 5RF Protocol: Dose Management Condition: Thursday Dose/Route: 7.5 mg Instruction: 1 x 7.5 mg tablet Condition: Thursday Dose/Route: 7.5 mg Instruction: 1 x 7.5 mg tablet Condition: Thursday Dose/Route: 7.5 mg Instruction: 1 x 7.5 mg tablet Condition: Thursday Dose/Route: 10 mg Instruction: 1 x 10 mg tablet Condition: Dose/Route: 7.5 mg Instruction: 1 x 7.5 mg tablet Condition: Thursday Dose/Route: 7.5 mg Instruction: 1 x 7.5 mg tablet Condition: Thursday Dose/Route: 7.5 mg Instruction: 1 x 7.5 mg tablet Protocol Text: Adjustment Start Date: 10/06/24 INR Value: 1.6 INR Date: 10/06/24 Recheck Date: 10/19/24 Dose Instruction: TAKE ONE TABLET BY MOUTH DAILY Rx Instructions: TAKE ONE TABLET BY MOUTH DAILY warfarin 7.5 mg tablet 7.5 mg PO DAILY Qty: 30 0RF Protocol: Dose Management Condition: Thursday Dose/Route: 7.5 mg Instruction: 1 x 7.5 mg tablet Condition: Thursday Dose/Route: 7.5 mg Instruction: 1 x 7.5 mg tablet Condition: Thursday Dose/Route: 7.5 mg Instruction: 1 x 7.5 mg tablet Condition: Thursday Dose/Route: 10 mg Instruction: 1 x 10 mg tablet Condition: Dose/Route: 7.5 mg Instruction: 1 x 7.5 mg tablet Condition: Thursday Dose/Route: 7.5 mg Instruction: 1 x 7.5 mg tablet Condition: Thursday Dose/Route: 7.5 mg Instruction: 1 x 7.5 mg tablet Protocol Text: Adjustment Start Date: 10/06/24 INR Value: 1.6 INR Date: 10/06/24 Recheck Date: 10/19/24 fluoxetine 20 mg capsule See Rx Instructions .ROUTE .COMPLEX Qty: 90 5RF Dose Instruction: TAKE 3 CAPSULES BY MOUTH DAILY Rx Instructions: TAKE 3 CAPSULES BY MOUTH DAILY albuterol sulfate [ProAir HFA] 90 mcg/actuation HFA aerosol inhaler 2 puff inhalation Q4H PRN (Reason: Shortness Of Breath) fluticasone propionate 50 mcg/actuation spray,suspension 2 spray INTRANASAL DAILY PRN (Reason: Allergy Symptoms) Acidophilus 1 cap PO BID pseudoephedrine HCl [Sudogest] 30 mg tablet 30 mg PO DAILY PRN (Reason: Sinus Symptoms) Rx Instructions: DIRECTED PRN PT STATES SHE HAS THIS MEDICATION BUT HASNT BEEN TAKING Discharge Orders: Discharge ED (Routine); Ordered 04/29/25 Ordered By: Saeid Morris Referrals: Carlos Sosa MD [Primary Care Provider, Family Practice] Patient Instructions: Patient Portal & Kannan Instructions Activity Restrictions/Additional Instructions: Chronic DVT Discharge Discharge Instructions: Chronic Deep Vein Thrombosis Diagnosis/Clinical Summary: 64-year-old female with chronic left lower extremity DVT, presenting with left lower extremity pain. Arterial and venous duplex ultrasound today showed no acute findings. Pain has improved. Compression wrap provided. --- Home Management: - Compression Therapy: Continue to use the compression wrap as instructed. Compression therapy is recommended for chronic venous symptoms and may help reduce edema and discomfort. Ensure proper fit and comfort; adjust as needed for tolerance. Graduated compression stockings (20?40 mm Hg) may be considered if symptoms persist or for long-term management. - Remove the wrap daily to inspect the skin for irritation or breakdown. - Reapply as directed, ensuring no excessive tightness or constriction. - Activity: Ambulation is encouraged. Regular walking and leg elevation when sitting may help reduce venous stasis and swelling. - Avoid prolonged immobility. - Consider a supervised exercise program if symptoms of postthrombotic syndrome persist. - Skin Care: Maintain good skin hygiene. Moisturize to prevent dryness and breakdown, especially around the medial malleolus, where venous ulcers may develop. - Risk Factor Modification: Address modifiable risk factors: - Smoking cessation, weight management, and optimal glucose control are recommended if applicable. - Medication: Continue anticoagulation if prescribed, per prior management plan. No new anticoagulation is indicated in the absence of acute DVT or extension, per current imaging and symptomatology. --- Return Precautions: Contact your healthcare provider or seek emergency care for any of the following: - Sudden increase in leg pain, swelling, redness, or warmth (possible recurrent DVT or cellulitis). - Development of new skin changes, ulceration, or breakdown, especially around the ankle. - Signs of pulmonary embolism: new onset shortness of breath, chest pain, hemoptysis, or syncope. - Fever or systemic symptoms. - Signs of arterial compromise: cold, pale, or numb limb. --- Follow-Up: - Schedule follow-up with vascular medicine or hematology as directed. - Ongoing assessment for postthrombotic syndrome is recommended, as chronic venous insufficiency may develop in up to 30% of patients with prior DVT. - Consider referral for supervised exercise therapy or wound care if symptoms persist or ulcers develop. --- Additional Notes: - Compression therapy is contraindicated in severe peripheral arterial disease or severe contact allergies. - If compression wrap is not tolerated, alternative modes (graduated stockings, pneumatic devices) may be trialed. - Collaboration with other providers is recommended for complex or refractory symptoms. Print Language: Hungarian Coding Level of Care Code ED Physician Office Assistant for Chg Fwd Documented by User: Bharat Harvey, DO 04/29/25 18:24 HPI - Extremity Problem General: Chief complaint: Extremity Problem,Nontraumatic Stated complaint: Lt foot thinks broken Time Seen by Provider: 04/28/25 21:53 Related Data Home Medications ?Medication ?Instructions ?Recorded ?Confirmed albuterol sulfate 90 mcg/actuation 2 puff inhalation Q4H PRN 03/24/20 02/07/25 aerosol inhaler (ProAir HFA) Shortness Of Breath fluticasone propionate 50 2 spray intranasal DAILY PRN 03/24/20 02/07/25 mcg/actuation nasal Allergy Symptoms spray,suspension Acidophilus 1 cap PO BID 07/10/20 02/07/25 pseudoephedrine HCl 30 mg tablet 30 mg PO DAILY PRN Sinus Symptoms 08/10/20 02/07/25 (Sudogest) hydrocodone 10 mg-acetaminophen 1 tab PO BID PRN 07/29/23 02/07/25 325 mg tablet fluticasone 250 mcg-salmeterol 50 inhalation 08/22/24 02/07/25 mcg/dose blistr powdr for inhalation Previous Rx's ?Medication ?Instructions ?Recorded cyclobenzaprine 10 mg tablet 10 mg PO TID PRN muscle spasm #60 02/17/23 tabs warfarin 10 mg tablet See Rx Instructions .Route 09/05/24 .COMPLEX #30 tabs warfarin 7.5 mg tablet 7.5 mg PO DAILY #30 tabs 09/22/24 fluoxetine 20 mg capsule See Rx Instructions .Route 11/14/24 .COMPLEX #90 caps Allergies Allergy/AdvReac Type Severity Reaction Status Date / Time prochlorperazine (From Allergy ADR-Anxiety Verified 02/07/25 09:08 Compazine) [facility] ED PFSH: Medical History History of pancreatitis Multinodular goiter Anxiety and depression Fibromyalgia Degenerative arthritis History of iron deficiency anemia Helicobacter pylori gastritis Facet arthritis, degenerative, 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 Surgical History History of total right hip arthroplasty (02/2016) History of total left hip arthroplasty (10/2012) Status post colonoscopy History of appendectomy History of hysterectomy Family History Sister Cancer bone Dementia Brother Cancer colon Family/Other Cancer breast Other CAD (coronary artery disease) Hypertension Myocardial infarction Denies family history of Diabetes Clotting disorder Hyperlipidemia Psychiatric illness Chronic kidney disease (CKD) Suicide Anesthesia complication Bleeding disorder Lung disease Stroke Social History Smoking and tobacco/nicotine status: current every day tobacco/nicotine user cigarettes Packs smoked per day: 0.5 Alcohol intake: never Substance/Drug Use: never Lives independently: Yes Course Vital Signs: Vital signs: Vital Signs Temperature 97.4 F L 04/28/25 21:47 Pulse Rate 82 04/29/25 02:08 Respiratory Rate 17 04/29/25 02:08 Blood Pressure 131/82 04/29/25 02:08 Pulse Oximetry 96 04/29/25 02:08 Oxygen Delivery Me thod Room Air 04/29/25 00:00 MDM - Extremity (Nontraumatic) Medical Decision Making Patient presenting with left lower extremity pain suddenly an hour prehospital, history of multiple DVT on the left leg and she takes 10 mg of warfarin. Her INR is therapeutic with her warfarin use, 2.54 here in the emergency department for DVT prophylaxis. X-ray of foot was negative. On exam there was no outward sign of injury, and nonspecific tenderness to palpation diffusely. There was obvious tortuous varicosities of the left lower extremity, and her left lower extremity is reportedly chronically swollen when compared to the right. Though pulses were palpable. Venous duplex showing chronic DVT, and though my suspicion was low for arterial occlusion, this was ordered and negative as well. Patient was given pain medication here in the ED, and prior to discharge states that the pain had felt much better. She uses no compressive device, I encouraged her to start doing this and we will wrap her prior to discharge. She was found with a couple doses of very low-dose [place] to take for breakthrough pain only, and instructed to follow-up with regular provider for any further evaluation. Noted to be ambulatory out of the ED. This patient was originally seen by Mr. Arturo PA-C. I agree with his history, evaluation, and management. Lab Data 04/28/25 23:09 04/28/25 23:09 Radiology Impressions Foot X-Ray 04/28/25 21:52 IMPRESSION: No acute findings. Venous Duplex 04/28/25 22:24 IMPRESSION: No findings to suggest acute DVT Echogenic material in the lumen of the left lower extremity veins as above noted likely representing recanalized thrombus from prior episode of DVT. Duplex Scan Lower Extremity Artery 04/29/25 00:14 IMPRESSION: No stenosis or occlusion. Laboratory Results WBC 12.47 10^3/uL (3.29-11.43) H 04/28/25 23:09 RBC 3.52 10^6/uL (3.85-5.65) L 04/28/25 23:09 Hgb 11.20 g/dL (11.27-16.99) L 04/28/25 23:09 Hct 34.2 % (36-47) L 04/28/25 23:09 MCV 97.2 fl (85-98) 04/28/25 23:09 MCH 31.8 pg (27-33) 04/28/25 23:09 MCHC 32.7 g/dL (30-55) 04/28/25 23:09 RDW 15.8 % (12.1-15.1) H 04/28/25 23:09 Plt Count 272 10^3/cmm (157-399) 04/28/25 23:09 MPV 9.9 fL (7.4-10.4) 04/28/25 23:09 Neut % (Auto) 62.7 % 04/28/25 23:09 Lymph % (Auto) 25.7 % 04/28/25 23:09 Moca % (Auto) 9.1 % 04/28/25 23:09 Eos % (Auto) 1.6 % 04/28/25 23:09 Baso % (Auto) 0.6 % 04/28/25 23:09 Neut # (Auto) 7.82 10^3/uL (1.8-7.7) H 04/28/25 23:09 Lymph # (Auto) 3.2 10^3/uL (0.8-4.8) 04/28/25 23:09 Moca # (Auto) 1.1 10^3/uL (0.2-0.9) H 04/28/25 23:09 Eos # (Auto) 0.2 10^3/uL (0.0-0.8) 04/28/25 23:09 Baso # (Auto) 0.1 10^3/uL (0.0-0.1) 04/28/25 23:09 Nucleated RBC % (auto) 0 % 04/28/25 23:09 Nucleated RBCs # 0.0 /100WBC 04/28/25 23:09 PT 28.80 SECONDS (12.1-14.9) H 04/28/25 23:09 INR 2.54 (0.8-1.2) H 04/28/25 23:09 Sodium 132 mmol/L (136-145) L 04/28/25 23:09 Potassium 4.2 mmol/L (3.5-5.1) 04/28/25 23:09 Chloride 98 mmol/L (98-107) 04/28/25 23:09 Carbon Dioxide 23 mmol/L (22-29) 04/28/25 23:09 Anion Gap 15.2 (5-19) 04/28/25 23:09 BUN 13 mg/dL (8-23) 04/28/25 23:09 Creatinine 0.6 mg/dL (0.5-0.9) 04/28/25 23:09 GFR Calculation 100.0 mL/min (90-130) 04/28/25 23:09 Glucose 99 mg/dL (65-115) 04/28/25 23:09 Calculated Osmolality 274 mOsm/kg (285-295) L 04/28/25 23:09 Calcium 9.0 mg/dL (8.5-10.5) 04/28/25 23:09 Total Bilirubin 0.3 mg/dL (0.15-1.2) 04/28/25 23:09 AST 16 U/L (0-32) 04/28/25 23:09 ALT 10 U/L (0-33) 04/28/25 23:09 Alkaline Phosphatase 79 U/L (35-105) 04/28/25 23:09 Total Protein 6.5 g/dL (6.6-8.7) L 04/28/25 23:09 Albumin 3.8 g/dL (3.5-5.2) 04/28/25 23:09 Globulin 2.7 g/dL (1.3-4.6) 04/28/25 23:09 Discharge Plan Discharge Patient Disposition: Home Clinical Impression: Acute pain of left lower extremity Chronic deep vein thrombosis of left lower extremity Qualifiers: Affected thrombotic vein of extremity: unspecified vein of extremity Qualified Code(s): I82.502 - Chronic embolism and thrombosis of unspecified deep veins of left lower extremity Condition: Stable Prescriptions: No Action methylprednisolone acetate [Depo-Medrol] 40 mg/mL suspension 40 mg Infiltration ONCE Qty: 1 0RF lidocaine (PF) 20 mg/mL (2 %) solution 20 mg Infiltration ONCE Qty: 1 0RF cyclobenzaprine 10 mg tablet 10 mg PO TID PRN (Reason: muscle spasm) Qty: 60 0RF hydrocodone-acetaminophen 10-325 mg tablet 1 tab PO BID PRN fluticasone propion-salmeterol 250-50 mcg/dose blister with device inhalation warfarin 10 mg tablet See Rx Instructions .ROUTE .COMPLEX Qty: 30 5RF Protocol: Dose Management Condition: Thursday Dose/Route: 7.5 mg Instruction: 1 x 7.5 mg tablet Condition: Thursday Dose/Route: 7.5 mg Instruction: 1 x 7.5 mg tablet Condition: Thursday Dose/Route: 7.5 mg Instruction: 1 x 7.5 mg tablet Condition: Thursday Dose/Route: 10 mg Instruction: 1 x 10 mg tablet Condition: Dose/Route: 7.5 mg Instruction: 1 x 7.5 mg tablet Condition: Thursday Dose/Route: 7.5 mg Instruction: 1 x 7.5 mg tablet Condition: Thursday Dose/Route: 7.5 mg Instruction: 1 x 7.5 mg tablet Protocol Text: Adjustment Start Date: 10/06/24 INR Value: 1.6 INR Date: 10/06/24 Recheck Date: 10/19/24 Dose Instruction: TAKE ONE TABLET BY MOUTH DAILY Rx Instructions: TAKE ONE TABLET BY MOUTH DAILY warfarin 7.5 mg tablet 7.5 mg PO DAILY Qty: 30 0RF Protocol: Dose Management Condition: Thursday Dose/Route: 7.5 mg Instruction: 1 x 7.5 mg tablet Condition: Thursday Dose/Route: 7.5 mg Instruction: 1 x 7.5 mg tablet Condition: Thursday Dose/Route: 7.5 mg Instruction: 1 x 7.5 mg tablet Condition: Thursday Dose/Route: 10 mg Instruction: 1 x 10 mg tablet Condition: Dose/Route: 7.5 mg Instruction: 1 x 7.5 mg tablet Condition: Thursday Dose/Route: 7.5 mg Instruction: 1 x 7.5 mg tablet Condition: Thursday Dose/Route: 7.5 mg Instruction: 1 x 7.5 mg tablet Protocol Text: Adjustment Start Date: 10/06/24 INR Value: 1.6 INR Date: 10/06/24 Recheck Date: 10/19/24 fluoxetine 20 mg capsule See Rx Instructions .ROUTE .COMPLEX Qty: 90 5RF Dose Instruction: TAKE 3 CAPSULES BY MOUTH DAILY Rx Instructions: TAKE 3 CAPSULES BY MOUTH DAILY albuterol sulfate [ProAir HFA] 90 mcg/actuation HFA aerosol inhaler 2 puff inhalation Q4H PRN (Reason: Shortness Of Breath) fluticasone propionate 50 mcg/actuation spray,suspension 2 spray INTRANASAL DAILY PRN (Reason: Allergy Symptoms) Acidophilus 1 cap PO BID pseudoephedrine HCl [Sudogest] 30 mg tablet 30 mg PO DAILY PRN (Reason: Sinus Symptoms) Rx Instructions: DIRECTED PRN PT STATES SHE HAS THIS MEDICATION BUT HASNT BEEN TAKING Discharge Orders: Discharge ED (Routine); Ordered 04/29/25 Ordered By: Saeid Morris Referrals: Carlos Sosa MD [Primary Care Provider, Family Practice] Patient Instructions: Patient Portal & Kannan Instructions Activity Restrictions/Additional Instructions: Chronic DVT Discharge Discharge Instructions: Chronic Deep Vein Thrombosis Diagnosis/Clinical Summary: 64-year-old female with chronic left lower extremity DVT, presenting with left lower extremity pain. Arterial and venous duplex ultrasound today showed no acute findings. Pain has improved. Compression wrap provided. --- Home Management: - Compression Therapy: Continue to use the compression wrap as instructed. Compression therapy is recommended for chronic venous symptoms and may help reduce edema and discomfort. Ensure proper fit and comfort; adjust as needed for tolerance. Graduated compression stockings (20?40 mm Hg) may be considered if symptoms persist or for long-term management. - Remove the wrap daily to inspect the skin for irritation or breakdown. - Reapply as directed, ensuring no excessive tightness or constriction. - Activity: Ambulation is encouraged. Regular walking and leg elevation when sitting may help reduce venous stasis and swelling. - Avoid prolonged immobility. - Consider a supervised exercise program if symptoms of postthrombotic syndrome persist. - Skin Care: Maintain good skin hygiene. Moisturize to prevent dryness and breakdown, especially around the medial malleolus, where venous ulcers may develop. - Risk Factor Modification: Address modifiable risk factors: - Smoking cessation, weight management, and optimal glucose control are recommended if applicable. - Medication: Continue anticoagulation if prescribed, per prior management plan. No new anticoagulation is indicated in the absence of acute DVT or extension, per current imaging and symptomatology. --- Return Precautions: Contact your healthcare provider or seek emergency care for any of the following: - Sudden increase in leg pain, swelling, redness, or warmth (possible recurrent DVT or cellulitis). - Development of new skin changes, ulceration, or breakdown, especially around the ankle. - Signs of pulmonary embolism: new onset shortness of breath, chest pain, hemoptysis, or syncope. - Fever or systemic symptoms. - Signs of arterial compromise: cold, pale, or numb limb. --- Follow-Up: - Schedule follow-up with vascular medicine or hematology as directed. - Ongoing assessment for postthrombotic syndrome is recommended, as chronic venous insufficiency may develop in up to 30% of patients with prior DVT. - Consider referral for supervised exercise therapy or wound care if symptoms persist or ulcers develop. --- Additional Notes: - Compression therapy is contraindicated in severe peripheral arterial disease or severe contact allergies. - If compression wrap is not tolerated, alternative modes (graduated stockings, pneumatic devices) may be trialed. - Collaboration with other providers is recommended for complex or refractory symptoms. Print Language: Hungarian Coding Level of Care Code ED Physician Office Assistant for Sadie Yepez
[2025-04-28 23:16] LABS: Hematocrit 34.2 % (36-47); Hemoglobin 11.20 g/dL (11.27-16.99); Mean Corpuscular HGB Conc 32.7 g/dL (30-55); Mean Corpuscular Hemoglobin 31.8 pg (27-33); Mean Corpuscular Volume 97.2 fl (85-98); Nucleated Red Blood Cells % 0 %; Platelet Count 272 10^3/cmm (157-399); Red Blood Count 3.52 10^6/uL (3.85-5.65); White Blood Count 12.47 10^3/uL (3.29-11.43)
[2025-04-28 23:32] LABS: Alanine Aminotransferase 10 U/L (0-33); Albumin Level 3.8 g/dL (3.5-5.2); Alkaline Phosphatase 79 U/L (35-105); Anion Gap 15.2 (5-19); Aspartate Amino Transferase 16 U/L (0-32); Blood Urea Nitrogen 13 mg/dL (8-23); Calcium 9.0 mg/dL (8.5-10.5); Carbon Dioxide 23 mmol/L (22-29); Chloride 98 mmol/L (98-107); Creatinine Clr Calc Pharmacy 70.4349; Globulin 2.7 g/dL (1.3-4.6); Glucose 99 mg/dL (65-115); Osmolality Calculated 274 mOsm/kg (285-295); Potassium 4.2 mmol/L (3.5-5.1); Sodium 132 mmol/L (136-145); Total Protein 6.5 g/dL (6.6-8.7)
[2025-04-28 23:36] LABS: INR 2.54 (0.8-1.2); Prothrombin Time 28.80 SECONDS (12.1-14.9)
[2025-04-29] VITALS: BP 125/83; PULSE 81; RESP 16; O2SAT 97
--- NOTE | 2025-04-29 00:14 | USR_ITS ---
PROCEDURE INFORMATION: Exam: US Duplex Left Lower Extremity Arteries Or Arterial Bypass Grafts Exam date and time: 04/29/2025 12:27 AM Age: 64 years old Clinical indication: Pain; Leg, lower; Left; Additional info: Lower extremity pain and swelling, color change TECHNIQUE: Imaging protocol: Left Real-time duplex scan of the arteries or arterial bypass grafts of the left lower extremity with 2-D leo scale, color Doppler flow and spectral waveform analysis. Images documented and saved. COMPARISON: US CV venous duplex [facility] [id number] 04/28/2025 11:58 PM FINDINGS: Left common femoral artery: No occlusion or significant stenosis. Normal waveform. Left superficial femoral artery: No occlusion or significant stenosis. Normal waveform. Left popliteal artery: No occlusion or significant stenosis. Normal waveform. Left calf/foot arteries: No occlusion or significant stenosis in the visualized arteries. Normal waveforms. Dorsalis pedis artery is patent. US/CV arterial duplex [facility] [id number] IMPRESSION: No stenosis or occlusion.
[2025-04-29] MEDS: HYDROcodone-acetaminophen 7.5-325 mg Tablet 2 TAB PO (01:56)
[2025-04-29 02:08] VITALS: BP 131/82; PULSE 82; RESP 17; O2SAT 96
== END 2025-04-29 02:10 | disposition home or self-care (01) ==
PROVIDERS: Emergency Provider Physician Assistant; PCP Family Medicine
DX: I82.502 Chronic embolism and thrombosis of unspecified deep veins of left lower extremity (principal); Z79.01 Long term (current) use of anticoagulants; F17.210 Nicotine dependence, cigarettes, uncomplicated
CPT/HCPCS: 36415; 73630; 80053; 85025; 85610; 93926; 93971; 99284; J9999

== ENCOUNTER → 2025-05-12 10:12 | Outpatient (BNVA) | payer MEDICARE, MEDICAID, SELFPAY | PROVIDERS: PCP Family Medicine; Visit Provider Physician Assistant | DX: M70.62 Trochanteric bursitis, left hip (principal); Z71.89 Other specified counseling | CPT/HCPCS: 20610; 99213; J3301; J3490; J9999 ==

== ENCOUNTER → 2025-09-12 10:46 | Outpatient (BNVA) | payer MEDICARE, MEDICAID, SELFPAY | PROVIDERS: PCP Family Medicine; Visit Provider Physician Assistant | DX: M70.62 Trochanteric bursitis, left hip (principal); M54.9 Dorsalgia, unspecified; Z71.89 Other specified counseling | CPT/HCPCS: 20610; 99213; J3301; J3490; J9999 ==